=== PATIENT | male | born 1975 | race Hispanic/Latino ===

== ENCOUNTER 2017-12-30 20:26 | Emergency (ER) | payer OTHER ==
[2017-12-30] MEDS ORDERED: TETANUS/DIPHTHERIA TOXOID [ADULT] 0.5 ML VIAL IM ONE (20:36)
== END 2017-12-30 22:49 | disposition home or self-care (01) ==
LOC: EDH 20:26
DX: S61.212A Laceration without foreign body of right middle finger without damage to nail, initial encounter (principal); S61.214A Laceration without foreign body of right ring finger without damage to nail, initial encounter; W26.0XXA Contact with knife, initial encounter; Y93.89 Activity, other specified; Y92.098 Other place in other non-institutional residence as the place of occurrence of the external cause; Y99.8 Other external cause status
CPT/HCPCS: 90471; 90714

== ENCOUNTER 2021-04-26 17:42 | Inpatient (IN) | payer SELFPAY ==
[~2021-04-26] VITALS: Ht 167.6 cm; Wt 61.7 kg
[2021-04-26 18:44] LABS: CREATININE 0.8 mg/dL (0.5-1.5); POTASSIUM 3.6 mmol/L (3.5-5.1)
[2021-04-26 18:48] LABS: BASOPHILS % (AUTO) 0.3 % (0.0-5.0); EOSINOPHILS % (AUTO) 0.1 % (0.0-8.0); HEMATOCRIT 43.2 % (42-54); LYMPHOCYTES % (AUTO) 11.9 % (21.0-51.0); MEAN CORPUSCULAR HEMOGLOBIN 34.6 pg (27.0-33.0); MEAN CORPUSCULAR HGB CONC 34.5 g/dL (32.0-36.0); MEAN CORPUSCULAR VOLUME 100.2 fL (79-99); MONOCYTES % (AUTO) 7.7 % (3.0-13.0); NEUTROPHILS % (AUTO) 79.5 % (40.0-77.0); PLATELET COUNT (AUTO) 308 K/uL (130-400); RED BLOOD CELL COUNT(AUTO) 4.31 MIL/uL (4.50-6.20); RED CELL DISTRIBUTION WIDTH 13.5 % (11.0-15.5); WHITE BLOOD COUNT (AUTO) 8.7 K/uL (4.8-10.8)
[2021-04-26 18:49] LABS: ALBUMIN 4.2 g/dL (3.5-5.0); BILIRUBIN,TOTAL 0.4 mg/dL (0.2-1.0); TOTAL PROTEIN, SERUM 8.3 g/dL (6.0-8.3)
[2021-04-26] MEDS ORDERED: 0.9%NACL 1000ML 1,000 ML IV ONE (19:00)
[2021-04-26 19:09] LABS: INR 0.97 (0.85-1.15); PARTIAL THROMBOPLASTIN TIME 26.1 SEC (26.3-35.5); PROTHROMBIN TIME 10.6 SEC (9.6-11.6)
[2021-04-26] MEDS ORDERED: PANTOPRAZOLE 40 MG/VIAL IVP SCH (21:00)
[2021-04-26] MEDS: LORAZEPAM 1 MG TABLET PO PRN (21:07)
[2021-04-26] MEDS: 0.9%NACL 1000ML 1,000 ML IV SCH (21:07)
[2021-04-26] MEDS ORDERED: ZOLPIDEM TARTRATE 5 MG TAB PO PRN (22:00)
[2021-04-26] MEDS: LACTATED RINGERS 1000ML 1,000 ML IV SCH (22:43)
[2021-04-27 02:00] LABS: APPEARANCE,URINE Turbid (CLEAR); BILIRUBIN,URINE Negative (NEGATIVE); COLOR,URINE Yellow (YELLOW); GLUCOSE, URINE (UA) Negative (NEGATIVE); KETONES,URINE Trace mg/dL (NEGATIVE); LEUKOCYTE ESTERASE ,URINE Negative (NEGATIVE); NITRATE,URINE Negative (NEGATIVE); OCCULT BLOOD,URINE Negative (NEGATIVE); PH,URINE 5.5 (5.0-8.0); PROTEIN,URINE Negative (NEGATIVE)
[2021-04-27 02:02] LABS: AMORPHOUS SEDIMENT,UR Many /LPF (None Seen); BACTERIA,URINE None Seen /HPF (None Seen); RBC,URINE None Seen /HPF (0-1); SQUAMOUS EPITHELIAL CELL,UR Rare /HPF (0-2); WBC,URINE None Seen /HPF (0-1)
[2021-04-27] MEDS: 0.9%NACL 1000ML 1,000 ML IV SCH (03:40)
[2021-04-27 06:32] LABS: BASOPHILS % (AUTO) 0.6 % (0.0-5.0); EOSINOPHILS % (AUTO) 0.4 % (0.0-8.0); LYMPHOCYTES % (AUTO) 21.5 % (21.0-51.0); MEAN CORPUSCULAR HEMOGLOBIN 34.8 pg (27.0-33.0); MEAN CORPUSCULAR HGB CONC 33.9 g/dL (32.0-36.0); MEAN CORPUSCULAR VOLUME 102.4 fL (79-99); MONOCYTES % (AUTO) 11.1 % (3.0-13.0); NEUTROPHILS % (AUTO) 66.1 % (40.0-77.0); PLATELET COUNT (AUTO) 223 K/uL (130-400); RED BLOOD CELL COUNT(AUTO) 3.71 MIL/uL (4.50-6.20); RED CELL DISTRIBUTION WIDTH 13.5 % (11.0-15.5); WHITE BLOOD COUNT (AUTO) 6.9 K/uL (4.8-10.8)
[2021-04-27 07:00] LABS: CREATININE 0.8 mg/dL (0.5-1.5); MAGNESIUM 1.6 mg/dL (1.80-2.40); PHOSPHORUS 3.2 mg/dL (2.5-4.9); POTASSIUM 3.4 mmol/L (3.5-5.1)
[2021-04-27] MEDS: LACTATED RINGERS 1000ML 1,000 ML IV SCH ×2 (09:07→18:03)
[2021-04-27] MEDS: FAMOTIDINE 20MG VIAL IV SCH ×2 (09:08→22:04)
[2021-04-27] MEDS ORDERED: PEG 3350/NA SULF,BICARB,CL/KCL 4000 ML SOLN PO SCH (17:00)
[2021-04-27 23:30] VITALS: BP 144/95
[2021-04-28] VITALS (20 sets, daily range): BP systolic 100–143; BP diastolic 66–98
[2021-04-28 00:25] LABS: HEMATOCRIT 44.9 % (42-54)
[2021-04-28] MEDS: LORAZEPAM 1 MG TABLET PO PRN (00:42)
[2021-04-28] MEDS: LACTATED RINGERS 1000ML 1,000 ML IV SCH ×2 (03:04→14:14)
[2021-04-28 06:44] LABS: HEMATOCRIT 38.6 % (42-54)
[2021-04-28] MEDS ORDERED: MAGNESIUM 2GM PREMIX 50ML 50 ML IV SCH (09:30)
[2021-04-28] MEDS ORDERED: KCL 20 MEQ ERTAB PO SCH (09:30)
[2021-04-28] MEDS: FAMOTIDINE 20MG VIAL IV SCH (09:43)
[2021-04-28] MEDS ORDERED: PROPOFOL 10 MG/ML 20ML VIAL IV ONE (12:18)
[2021-04-28 18:00] LABS: HEMATOCRIT 41.7 % (42-54)
== END 2021-04-28 19:35 | disposition home or self-care (01) | DRG 378 ==
LOC: EDH 17:42 → OBSVTOIN 17:43 → EDHIP 17:43 → 3AH 04-27 23:08
PROVIDERS: ADMIT Internal Medicine; ATTEND Internal Medicine
PROC: 0DJD8ZZ Inspection of Lower Intestinal Tract, Via Natural or Artificial Opening Endoscopic (ICD-10-PCS; principal; 2021-04-28)
DX: K92.1 Melena (principal); D62 Acute posthemorrhagic anemia; K59.00 Constipation, unspecified; F41.9 Anxiety disorder, unspecified; Z20.822 Contact with and (suspected) exposure to COVID-19; K64.8 Other hemorrhoids; R74.01 Elevation of levels of liver transaminase levels
CPT/HCPCS: 36415; 45378; 74176; 80048; 80053; 81001; 82270; 83735; 84100; 85014; 85018; 85025; 85610; 85730; 86140; 86850; 86900; 86901; 87635; 93005; 96374; A4606; C9113; G0378; J2704; J3475; J3490; J7030; J7120

== ENCOUNTER 2021-12-30 00:31 | Emergency (ER) | payer OTHER ==
[~2021-12-30] VITALS: Ht 167.6 cm; Wt 63.5 kg
[2021-12-30 01:03] LABS: BASOPHILS % (AUTO) 0.9 % (0.0-5.0); EOSINOPHILS % (AUTO) 1.1 % (0.0-8.0); HEMATOCRIT 43.2 % (42-54); LYMPHOCYTES % (AUTO) 30.9 % (21.0-51.0); MEAN CORPUSCULAR HEMOGLOBIN 32.1 pg (27.0-33.0); MEAN CORPUSCULAR HGB CONC 33.8 g/dL (32.0-36.0); MEAN CORPUSCULAR VOLUME 94.9 fL (79-99); MONOCYTES % (AUTO) 6.6 % (3.0-13.0); NEUTROPHILS % (AUTO) 60.3 % (40.0-77.0); PLATELET COUNT (AUTO) 318 K/uL (130-400); RED BLOOD CELL COUNT(AUTO) 4.55 MIL/uL (4.50-6.20); RED CELL DISTRIBUTION WIDTH 12.4 % (11.0-15.5); WHITE BLOOD COUNT (AUTO) 5.6 K/uL (4.8-10.8)
[2021-12-30 01:08] LABS: APPEARANCE,URINE Clear (CLEAR); BILIRUBIN,URINE Negative (NEGATIVE); COLOR,URINE Yellow (YELLOW); GLUCOSE, URINE (UA) Negative (NEGATIVE); KETONES,URINE Negative (NEGATIVE); LEUKOCYTE ESTERASE ,URINE Trace (NEGATIVE); NITRATE,URINE Negative (NEGATIVE); OCCULT BLOOD,URINE Negative (NEGATIVE); PROTEIN,URINE Negative (NEGATIVE); UROBILINOGEN,URINE 0.2 mg/dL (0.2-1.0)
[2021-12-30 01:13] LABS: CARBON DIOXIDE 27 mmol/L (21-32); CHLORIDE 103 mmol/L (101-111); CREATININE 0.9 mg/dL (0.5-1.5); GLOMERULAR FILTR. RATE CALC 97 mL/min (>60); GLUCOSE,RANDOM 99 mg/dL (70-105); POTASSIUM 3.5 mmol/L (3.5-5.1); SODIUM SERUM 140 mmol/L (136-145); UREA NITROGEN, BLOOD 14 mg/dL (7-18)
[2021-12-30 01:14] LABS: BACTERIA,URINE None Seen /HPF (None Seen); RBC,URINE None Seen /HPF (0-1); WBC,URINE None Seen /HPF (0-1)
[2021-12-30 01:18] LABS: ALANINE AMINOTRANSFERASE 26 U/L (12-78); ALBUMIN 3.9 g/dL (3.5-5.0); ASPARTATE AMINOTRANSFERASE 28 U/L (10-37); BILIRUBIN,TOTAL 0.5 mg/dL (0.2-1.0); TOTAL PROTEIN, SERUM 7.7 g/dL (6.0-8.3)
[2021-12-30 01:20] LABS: AMPHET/METH SCREEN,URINE NEGATIVE (NEGATIVE); BARBITURATE SCREEN, URINE NEGATIVE (NEGATIVE); BENZODIAZEPINES SCREEN,URINE NEGATIVE (NEGATIVE); CANNABINOID SCREEN,URINE NEGATIVE (NEGATIVE); COCAINE SCREEN,URINE NEGATIVE (NEGATIVE); OPIATE SCREEN,URINE NEGATIVE (NEGATIVE); PHENCYCLIDINE SCREEN,URINE NEGATIVE (NEGATIVE)
[2021-12-30 01:23] LABS: ACETAMINOPHEN < 1 mcg/mL (10-29); ALCOHOL, BLOOD 325 mg/dL (0-10); SALICYLATE < 2.8 mg/dL (2.8-20.0)
[2021-12-30 09:31] VITALS: BP 126/81
== END 2021-12-30 15:23 | disposition home or self-care (01) ==
LOC: EDH 00:31
DX: F34.9 Persistent mood [affective] disorder, unspecified (principal); F10.10 Alcohol abuse, uncomplicated; Z20.822 Contact with and (suspected) exposure to COVID-19; Z90.89 Acquired absence of other organs; Y90.4 Blood alcohol level of 80-99 mg/100 ml
CPT/HCPCS: 36415; 80053; 80305; 81001; 85025; 87635; 99283; C9803; G0481

== ENCOUNTER 2022-12-07 02:43 | Inpatient (IN) | payer OTHER ==
[~2022-12-07] VITALS: Ht 167.6 cm; Wt 64.4 kg
[2022-12-07 03:43] LABS: CREATININE 1.4 mg/dL (0.5-1.5); POTASSIUM 3.7 mmol/L (3.5-5.1)
[2022-12-07 03:44] LABS: ALBUMIN 4.6 g/dL (3.5-5.0); TOTAL PROTEIN, SERUM 8.5 g/dL (6.0-8.3)
[2022-12-07 03:55] LABS: BASOPHILS % (AUTO) 0.4 % (0.0-5.0); EOSINOPHILS % (AUTO) 0.1 % (0.0-8.0); HEMATOCRIT 41.3 % (42-54); MEAN CORPUSCULAR HEMOGLOBIN 28.3 pg (27.0-33.0); MEAN CORPUSCULAR VOLUME 88.6 fL (79-99); MONOCYTES % (AUTO) 4.4 % (3.0-13.0); NEUTROPHILS % (AUTO) 88.5 % (40.0-77.0); PLATELET COUNT (AUTO) 468 K/uL (130-400); RED BLOOD CELL COUNT(AUTO) 4.66 MIL/uL (4.50-6.20); RED CELL DISTRIBUTION WIDTH 18.6 % (11.0-15.5); WHITE BLOOD COUNT (AUTO) 18.5 K/uL (4.8-10.8)
[2022-12-07] MEDS ORDERED: 0.9%NACL 1000ML 1,000 ML IV ONE ×2 (04:00)
[2022-12-07] MEDS ORDERED: ONDANSETRON 4MG INJ IVP ONE (04:00)
[2022-12-07 04:52] LABS: APPEARANCE,URINE CLEAR (CLEAR); BILIRUBIN,URINE NEGATIVE (NEGATIVE); COLOR,URINE LIGHT-YELLOW (YELLOW); GLUCOSE, URINE (UA) NEGATIVE (NEGATIVE); KETONES,URINE 100 mg/dL (NEGATIVE); LEUKOCYTE ESTERASE ,URINE NEGATIVE Leu/uL (NEGATIVE); NITRATE,URINE NEGATIVE (NEGATIVE); OCCULT BLOOD,URINE NEGATIVE (NEGATIVE); PH,URINE 5.5 (5.0-8.0); PROTEIN,URINE 20 mg/dL (NEGATIVE); UROBILINOGEN,URINE 0.2 mg/dL (0.2-1.0)
[2022-12-07 05:01] LABS: AMPHET/METH SCREEN,URINE NEGATIVE (NEGATIVE); BARBITURATE SCREEN, URINE NEGATIVE (NEGATIVE); BENZODIAZEPINES SCREEN,URINE NEGATIVE (NEGATIVE); CANNABINOID SCREEN,URINE NEGATIVE (NEGATIVE); COCAINE SCREEN,URINE NEGATIVE (NEGATIVE); OPIATE SCREEN,URINE NEGATIVE (NEGATIVE); PHENCYCLIDINE SCREEN,URINE NEGATIVE (NEGATIVE)
[2022-12-07 05:04] LABS: MUCUS,URINE RARE LPF (None Seen); RBC,URINE 0-1 /HPF (0-1); WBC,URINE 0-1 /HPF (0-1)
[2022-12-07] MEDS ORDERED: CHLORDIAZEPOXIDE HCL 25 MG CAP PO PRN ×2 (06:00→07:30)
[2022-12-07] MEDS ORDERED: LORAZEPAM 2 MG/ML 1 ML VIAL IVP ONE (06:00)
[2022-12-07] MEDS ORDERED: PHARMACY COMMUNICATION MISC PRN ×2 (06:00→07:30)
[2022-12-07] MEDS ORDERED: LORAZEPAM 2 MG/ML 1 ML VIAL IVP PRN ×3 (06:00→07:30)
[2022-12-07] MEDS ORDERED: M.V.I. IV [ADULT] 10 ML, FOLIC ACID 1 MG, THIAMINE HCL 100 MG in 0.9%NACL 1000ML 1,000 ML IV SCH (06:29)
[2022-12-07] MEDS: ZOSYN 3.375GM +NS 50ML IVPB SCH ×3 (07:00→20:09)
[2022-12-07] MEDS ORDERED: 0.9%NACL 50ML IV SCH (07:00)
[2022-12-07 07:33] LABS: INR 0.88 (0.85-1.15); PROTHROMBIN TIME 9.5 SEC (9.6-11.6)
[2022-12-07] MEDS: CHLORDIAZEPOXIDE HCL 25 MG CAP PO PRN ×3 (08:39→16:49)
[2022-12-07] MEDS: PANTOPRAZOLE 40 MG/VIAL IVP SCH ×2 (09:19→20:10)
[2022-12-07] MEDS: FOLIC ACID 1 MG, THIAMINE HCL 100 MG in 0.9%NACL 1000ML 1,000 ML IV SCH (09:19)
[2022-12-07] MEDS: ENOXAPARIN SODIUM 30 MG/0.3 ML SQ SCH (09:20)
[2022-12-07] MEDS ORDERED: IOHEXOL 350 MG/ML 100ML INFUS..BTL IV ONE (09:28)
[2022-12-07] MEDS ORDERED: POTASSIUM CHLORIDE 10MEQ/100ML 100 ML IV PRN (14:00)
[2022-12-07] MEDS ORDERED: POTASSIUM CHLORIDE 10% ELIXIR 20 MEQ/15 ML UDCUP PO PRN (14:00)
[2022-12-07] MEDS ORDERED: MAGNESIUM 2GM PREMIX 50ML 50 ML IV SCH (14:00)
[2022-12-07] MEDS ORDERED: ONDANSETRON 4MG INJ ONE (16:43)
[2022-12-07] MEDS ORDERED: ONDANSETRON 4MG INJ IVP PRN (17:00)
[2022-12-07] MEDS: KCL 20 MEQ ERTAB PO PRN (17:13)
[2022-12-07 17:25] VITALS: BP 143/94
[2022-12-07 19:43] VITALS: BP 144/90
[2022-12-07 23:37] VITALS: BP 141/98
[2022-12-08 04:00] VITALS: BP 145/91
[2022-12-08 04:02] LABS: ALBUMIN 3.1 g/dL (3.5-5.0); BILIRUBIN,DIRECT 0.2 mg/dL (0.0-0.3); TOTAL PROTEIN, SERUM 6.3 g/dL (6.0-8.3)
[2022-12-08] MEDS: ZOSYN 3.375GM +NS 50ML IVPB SCH ×3 (05:47→21:08)
[2022-12-08 07:00] VITALS: BP 136/88
[2022-12-08 07:10] LABS: BASOPHILS % (AUTO) 0.9 % (0.0-5.0); EOSINOPHILS % (AUTO) 0.1 % (0.0-8.0); HEMATOCRIT 31.7 % (42-54); LYMPHOCYTES % (AUTO) 20.2 % (21.0-51.0); MEAN CORPUSCULAR HEMOGLOBIN 28.5 pg (27.0-33.0); MEAN CORPUSCULAR HGB CONC 31.5 g/dL (32.0-36.0); MEAN CORPUSCULAR VOLUME 90.3 fL (79-99); MONOCYTES % (AUTO) 10.6 % (3.0-13.0); NEUTROPHILS % (AUTO) 67.9 % (40.0-77.0); PLATELET COUNT (AUTO) 262 K/uL (130-400); RED BLOOD CELL COUNT(AUTO) 3.51 MIL/uL (4.50-6.20); RED CELL DISTRIBUTION WIDTH 17.9 % (11.0-15.5)
[2022-12-08 07:18] LABS: POTASSIUM 3.1 mmol/L (3.5-5.1)
[2022-12-08] MEDS: ENOXAPARIN SODIUM 30 MG/0.3 ML SQ SCH (10:18)
[2022-12-08] MEDS: PANTOPRAZOLE 40 MG/VIAL IVP SCH ×2 (10:18→21:08)
[2022-12-08 11:00] VITALS: BP 135/85
[2022-12-08] MEDS: FOLIC ACID 1 MG, THIAMINE HCL 100 MG in 0.9%NACL 1000ML 1,000 ML IV SCH (11:08)
[2022-12-08 16:00] VITALS: BP 132/91
[2022-12-08 19:30] VITALS: BP 128/86
[2022-12-08] MEDS: TRIAMCINOLONE ACETONIDE 0.1% CREAM 15GM TP SCH (21:48)
[2022-12-09 00:22] VITALS: BP 150/89
[2022-12-09 03:53] LABS: BASOPHILS % (AUTO) 0.6 % (0.0-5.0); EOSINOPHILS % (AUTO) 0.8 % (0.0-8.0); HEMATOCRIT 31.5 % (42-54); LYMPHOCYTES % (AUTO) 25.8 % (21.0-51.0); MEAN CORPUSCULAR HEMOGLOBIN 28.4 pg (27.0-33.0); MEAN CORPUSCULAR HGB CONC 32.1 g/dL (32.0-36.0); MEAN CORPUSCULAR VOLUME 88.5 fL (79-99); MONOCYTES % (AUTO) 9.8 % (3.0-13.0); NEUTROPHILS % (AUTO) 62.8 % (40.0-77.0); PLATELET COUNT (AUTO) 229 K/uL (130-400); RED BLOOD CELL COUNT(AUTO) 3.56 MIL/uL (4.50-6.20); RED CELL DISTRIBUTION WIDTH 16.9 % (11.0-15.5); WHITE BLOOD COUNT (AUTO) 5.1 K/uL (4.8-10.8)
[2022-12-09 04:05] LABS: ALBUMIN 3.2 g/dL (3.5-5.0); BILIRUBIN,DIRECT 0.2 mg/dL (0.0-0.3); CREATININE 0.9 mg/dL (0.5-1.5); POTASSIUM 3.3 mmol/L (3.5-5.1); TOTAL PROTEIN, SERUM 6.4 g/dL (6.0-8.3)
[2022-12-09 04:30] VITALS: BP 139/91
[2022-12-09] MEDS: ZOSYN 3.375GM +NS 50ML IVPB SCH (05:00)
[2022-12-09] MEDS: KCL 20 MEQ ERTAB PO PRN ×3 (05:01→11:28)
[2022-12-09 07:15] VITALS: BP 128/80
[2022-12-09] MEDS: PANTOPRAZOLE 40 MG/VIAL IVP SCH (08:43)
[2022-12-09] MEDS: TRIAMCINOLONE ACETONIDE 0.1% CREAM 15GM TP SCH (08:45)
[2022-12-09] MEDS: ENOXAPARIN SODIUM 30 MG/0.3 ML SQ SCH (08:45)
[2022-12-09] MEDS ORDERED: TRIA15CR45 TP (09:32)
[2022-12-09] MEDS ORDERED: ONDA-104 PO (09:33)
[2022-12-09 11:15] VITALS: BP 136/90
[2022-12-09] MEDS ORDERED: KCL 20 MEQ ERTAB PO SCH (15:00)
== END 2022-12-09 14:30 | disposition home or self-care (01) | DRG 897 ==
LOC: EDH 02:43 → EDHIP 02:44 → 2AH 15:50
PROVIDERS: ADMIT Hospitalist; ATTEND Hospitalist
DX: F10.139 Alcohol abuse with withdrawal, unspecified (principal); R65.10 Systemic inflammatory response syndrome (SIRS) of non-infectious origin without acute organ dysfunction; E87.6 Hypokalemia; D72.829 Elevated white blood cell count, unspecified; E83.42 Hypomagnesemia
CPT/HCPCS: 36415; 71046; 71270; 76705; 80048; 80053; 80076; 80305; 81001; 82550; 83605; 83690; 83735; 84145; 85025; 85378; 85610; 93005; 99291; C9113; G0378; J1650; J2060; J2405; J2543; J3411; J3475; J3490; J7030; Q9967

== ENCOUNTER 2023-02-02 20:18 | Inpatient (IN) | payer OTHER ==
[~2023-02-02] VITALS: Ht 167.6 cm; Wt 64.7 kg
[~2023-02-02 20:18] MED LIST: ONDA-104 PO; TRIA15CR45 TP
[2023-02-02] MEDS ORDERED: THIAMINE HCL 100 MG/ML 2ML VIAL ONE (22:57)
[2023-02-02] MEDS ORDERED: FOLIC ACID 5 MG/ML VIAL ONE (22:58)
[2023-02-02] MEDS: THIAMINE HCL 100 MG, FOLIC ACID 1 MG, M.V.I. IV [ADULT] 10 ML in 0.9%NACL 1000ML 1,000 ML IV SCH (22:59)
[2023-02-02] MEDS ORDERED: LORAZEPAM 2 MG/ML 1 ML VIAL IVP ONE (23:00)
[2023-02-02] MEDS ORDERED: LACTATED RINGERS 1000ML 1,000 ML IV ONE (23:00)
[2023-02-02 23:23] LABS: BASOPHILS % (AUTO) 0.4 % (0.0-5.0); EOSINOPHILS % (AUTO) 32.1 % (0.0-8.0); HEMATOCRIT 49.4 % (42-54); LYMPHOCYTES % (AUTO) 5.2 % (21.0-51.0); MEAN CORPUSCULAR HEMOGLOBIN 26.3 pg (27.0-33.0); MEAN CORPUSCULAR HGB CONC 28.9 g/dL (32.0-36.0); MEAN CORPUSCULAR VOLUME 90.8 fL (79-99); MONOCYTES % (AUTO) 5.7 % (3.0-13.0); NEUTROPHILS % (AUTO) 54.8 % (40.0-77.0); NUCLEATED RED BLOOD CELLS 0.1 % (0.0-0.19); PLATELET COUNT (AUTO) 586 K/uL (130-400); RED BLOOD CELL COUNT(AUTO) 5.44 MIL/uL (4.50-6.20); RED CELL DISTRIBUTION WIDTH 16.6 % (11.0-15.5)
[2023-02-02] MEDS ORDERED: PANTOPRAZOLE 40 MG/VIAL ONE (23:37)
[2023-02-02 23:38] LABS: WHITE BLOOD COUNT (AUTO) 37.2 K/uL (4.8-10.8)
[2023-02-02 23:39] LABS: ALANINE AMINOTRANSFERASE 44 U/L (12-78); ALBUMIN 4.4 g/dL (3.5-5.0); ASPARTATE AMINOTRANSFERASE 82 U/L (10-37); CREATININE 2.7 mg/dL (0.5-1.5); GLOMERULAR FILTR. RATE CALC 29 mL/min (>90); GLUCOSE,RANDOM 194 mg/dL (70-105); LIPASE 265 U/L (114-286); POTASSIUM 5.4 mmol/L (3.5-5.1); SALICYLATE 3.4 mg/dL (2.8-20.0); SODIUM SERUM 132 mmol/L (136-145); UREA NITROGEN, BLOOD 25 mg/dL (7-18)
[2023-02-02 23:42] LABS: ACETAMINOPHEN < 1 mcg/mL (10-29); CARBON DIOXIDE 9 mmol/L (21-32); CHLORIDE 85 mmol/L (101-111)
[2023-02-03] MEDS ORDERED: LACTATED RINGERS 1000ML 1,914 ML IV ONE
[2023-02-03] MEDS ORDERED: CEFTRIAXONE 2GM VIAL IVPB ONE
[2023-02-03] MEDS ORDERED: PANTOPRAZOLE 40 MG/VIAL IVP ONE
[2023-02-03 00:23] LABS: BAND NEUTROPHILS % (MANUAL) 1 % (0-2); BASOPHILS % (MANUAL) 1 % (0-2); EOSINOPHILS % (MANUAL) 1 % (1-6); LYMPHOCYTES % (MANUAL) 13 % (22-44); MONOCYTES % (MANUAL) 10 % (2-9); SEGMENTED NEUTROPHILS % 74 % (40-70)
[2023-02-03 00:24] LABS: MAN.DIFF COMMENT-IMPRESSION MANUAL DIFFERENTIAL; PLATELET MORPHOLOGY COMMENT INCREASED
[2023-02-03 01:19] LABS: APPEARANCE,URINE CLOUDY (CLEAR); BILIRUBIN,URINE NEGATIVE (NEGATIVE); COLOR,URINE LIGHT-YELLOW (YELLOW); GLUCOSE, URINE (UA) NEGATIVE (NEGATIVE); KETONES,URINE 40 mg/dL (NEGATIVE); LEUKOCYTE ESTERASE ,URINE NEGATIVE Leu/uL (NEGATIVE); NITRATE,URINE NEGATIVE (NEGATIVE); OCCULT BLOOD,URINE SMALL (NEGATIVE); PH,URINE 5.5 (5.0-8.0); PROTEIN,URINE 100 mg/dL (NEGATIVE); UROBILINOGEN,URINE 0.2 mg/dL (0.2-1.0)
[2023-02-03 01:24] LABS: AMPHET/METH SCREEN,URINE NEGATIVE (NEGATIVE); BARBITURATE SCREEN, URINE NEGATIVE (NEGATIVE); BENZODIAZEPINES SCREEN,URINE NEGATIVE (NEGATIVE); CANNABINOID SCREEN,URINE NEGATIVE (NEGATIVE); COCAINE SCREEN,URINE NEGATIVE (NEGATIVE); OPIATE SCREEN,URINE NEGATIVE (NEGATIVE); PHENCYCLIDINE SCREEN,URINE NEGATIVE (NEGATIVE)
[2023-02-03 01:29] LABS: MUCUS,URINE RARE LPF (None Seen); SQUAMOUS EPITHELIAL CELL,UR RARE /HPF (0-2)
[2023-02-03 01:56] LABS: ABG BASE EXCESS -8.3 mmol/L (-2.0-3.0); ABG HCO3 14.9 mmol/L (21.0-28.0); ABG OXYGEN SATURATION 96.6 % (95.0-99.0); ABG PCO2 26 mmHg (35-48)
[2023-02-03] MEDS: CHLORDIAZEPOXIDE HCL 25 MG CAP PO SCH ×3 (02:30→16:38)
[2023-02-03] MEDS ORDERED: ACETAMINOPHEN 325 MG TAB PO PRN ×2 (02:30)
[2023-02-03] MEDS ORDERED: MORPHINE 2 MG SYG IV PRN (02:30)
[2023-02-03] MEDS ORDERED: ONDANSETRON 4MG INJ IV PRN (02:30)
[2023-02-03] MEDS ORDERED: LORAZEPAM 2 MG/ML 1 ML VIAL IVP PRN (02:30)
[2023-02-03] MEDS ORDERED: NA ZIRCON CYCLOSIL(LOKELMA 10GM) PO ONE ×2 (02:30→07:30)
[2023-02-03] MEDS ORDERED: PHARMACY COMMUNICATION MISC PRN (02:30)
[2023-02-03] MEDS ORDERED: MORPHINE 4 MG SYG IV PRN (02:30)
[2023-02-03 06:48] LABS: CREATININE,URINE RANDOM 36 mg/dL (30-135); SODIUM,URINE RANDOM 94 mmol/l (40-220)
[2023-02-03 08:13] LABS: BASOPHILS % (AUTO) 0.1 % (0.0-5.0); EOSINOPHILS % (AUTO) 0.1 % (0.0-8.0); HEMATOCRIT 35.2 % (42-54); MEAN CORPUSCULAR HEMOGLOBIN 26.4 pg (27.0-33.0); MEAN CORPUSCULAR HGB CONC 31.8 g/dL (32.0-36.0); MONOCYTES % (AUTO) 8.2 % (3.0-13.0); NEUTROPHILS % (AUTO) 86.2 % (40.0-77.0); PLATELET COUNT (AUTO) 337 K/uL (130-400); RED BLOOD CELL COUNT(AUTO) 4.24 MIL/uL (4.50-6.20); RED CELL DISTRIBUTION WIDTH 16.4 % (11.0-15.5); WHITE BLOOD COUNT (AUTO) 16.9 K/uL (4.8-10.8)
[2023-02-03] MEDS: PANTOPRAZOLE 40 MG TAB DR PO SCH (08:17)
[2023-02-03] MEDS: THIAMINE HCL 100 MG, FOLIC ACID 1 MG, M.V.I. IV [ADULT] 10 ML in 0.9%NACL 1000ML 1,000 ML IV SCH (08:18)
[2023-02-03 08:32] LABS: CREATININE 1.7 mg/dL (0.5-1.5); PHOSPHORUS 1.8 mg/dL (2.5-4.9); POTASSIUM 4.1 mmol/L (3.5-5.1)
[2023-02-03 08:33] LABS: HEMOGLOBIN A1C 5.6 % (4.0-6.0)
[2023-02-03] MEDS: HEPARIN 5,000 UNIT VIAL SQ SCH ×3 (09:12→20:35)
[2023-02-03 15:00] VITALS: BP 161/103
[2023-02-03 20:00] VITALS: BP 154/88
[2023-02-04] VITALS: BP 154/88
[2023-02-04] MEDS: CHLORDIAZEPOXIDE HCL 25 MG CAP PO SCH ×3 (01:54→17:51)
[2023-02-04 04:00] VITALS: BP 144/80
[2023-02-04 06:21] LABS: BASOPHILS % (AUTO) 0.1 % (0.0-5.0); HEMATOCRIT 34.6 % (42-54); LYMPHOCYTES % (AUTO) 11.8 % (21.0-51.0); MEAN CORPUSCULAR HEMOGLOBIN 26.5 pg (27.0-33.0); MEAN CORPUSCULAR HGB CONC 31.5 g/dL (32.0-36.0); MONOCYTES % (AUTO) 6.9 % (3.0-13.0); NEUTROPHILS % (AUTO) 80.7 % (40.0-77.0); NUCLEATED RED BLOOD CELLS 0.3 % (0.0-0.19); PLATELET COUNT (AUTO) 273 K/uL (130-400); RED BLOOD CELL COUNT(AUTO) 4.12 MIL/uL (4.50-6.20); RED CELL DISTRIBUTION WIDTH 16.7 % (11.0-15.5); WHITE BLOOD COUNT (AUTO) 12.8 K/uL (4.8-10.8)
[2023-02-04 06:51] LABS: ALBUMIN 3.3 g/dL (3.5-5.0); THYROID STIMULATING HORMONE 0.84 uIU/mL (0.36-3.74); TOTAL PROTEIN, SERUM 6.7 g/dL (6.0-8.3); URIC ACID 8.6 mg/dL (2.6-7.2)
[2023-02-04 07:40] VITALS: BP 147/82
[2023-02-04] MEDS: Vitamin B Complex/Vit C/Folic Acid PO SCH (09:04)
[2023-02-04] MEDS: THIAMINE HCL 100 MG, FOLIC ACID 1 MG, M.V.I. IV [ADULT] 10 ML in 0.9%NACL 1000ML 1,000 ML IV SCH (09:04)
[2023-02-04] MEDS: PANTOPRAZOLE 40 MG TAB DR PO SCH (09:04)
[2023-02-04] MEDS: HEPARIN 5,000 UNIT VIAL SQ SCH (09:11)
[2023-02-04 09:39] LABS: APPEARANCE,URINE CLEAR (CLEAR); BILIRUBIN,URINE NEGATIVE (NEGATIVE); COLOR,URINE LIGHT-YELLOW (YELLOW); GLUCOSE, URINE (UA) NEGATIVE (NEGATIVE); KETONES,URINE 60 mg/dL (NEGATIVE); LEUKOCYTE ESTERASE ,URINE NEGATIVE Leu/uL (NEGATIVE); NITRATE,URINE NEGATIVE (NEGATIVE); OCCULT BLOOD,URINE NEGATIVE (NEGATIVE); PH,URINE 6.5 (5.0-8.0); PROTEIN,URINE NEGATIVE (NEGATIVE); UROBILINOGEN,URINE 0.2 mg/dL (0.2-1.0)
[2023-02-04 09:58] LABS: MUCUS,URINE RARE LPF (None Seen); RBC,URINE 0-1 /HPF (0-1)
[2023-02-04 11:20] VITALS: BP 143/108
[2023-02-04 13:53] LABS: ABG BASE EXCESS -0.5 mmol/L (-2.0-3.0); ABG HCO3 23.7 mmol/L (21.0-28.0); ABG OXYGEN SATURATION 96.5 % (95.0-99.0); ABG PCO2 37 mmHg (35-48)
[2023-02-04] MEDS ORDERED: 0.9%NACL 50ML IV SCH (14:00)
[2023-02-04 14:13] LABS: RETICULOCYTE % (AUTO) 0.71 % (0.42-2.23)
[2023-02-04] MEDS: ZOSYN 3.375GM +NS 50ML IVPB SCH ×2 (14:21→21:04)
[2023-02-04 14:30] LABS: INR 0.93 (0.85-1.15)
[2023-02-04 14:44] LABS: % IRON SATURATION 12.4 % (30-44)
[2023-02-04 15:00] LABS: CRP QUANTITATIVE 22.2 mg/L (0.00-9.0)
[2023-02-04 15:57] LABS: HEMATOCRIT 32.3 % (42-54)
[2023-02-04 16:36] VITALS: BP 146/102
[2023-02-04] MEDS ORDERED: POTASSIUM CHLORIDE 10% ELIXIR 20 MEQ/15 ML UDCUP PO PRN (19:30)
[2023-02-04] MEDS: KCL 20 MEQ ERTAB PO PRN ×2 (19:49→22:48)
[2023-02-05] VITALS: BP 140/99
[2023-02-05] MEDS: KCL 20 MEQ ERTAB PO PRN ×2 (00:37→02:42)
[2023-02-05] MEDS: CHLORDIAZEPOXIDE HCL 25 MG CAP PO SCH ×3 (02:41→18:19)
[2023-02-05 03:48] VITALS: BP 140/96
[2023-02-05 04:26] LABS: BASOPHILS % (AUTO) 0.2 % (0.0-5.0); EOSINOPHILS % (AUTO) 0.1 % (0.0-8.0); HEMATOCRIT 34.7 % (42-54); MEAN CORPUSCULAR HEMOGLOBIN 26.3 pg (27.0-33.0); MEAN CORPUSCULAR HGB CONC 30.8 g/dL (32.0-36.0); MEAN CORPUSCULAR VOLUME 85.3 fL (79-99); NEUTROPHILS % (AUTO) 81.5 % (40.0-77.0); NUCLEATED RED BLOOD CELLS 0.2 % (0.0-0.19); PLATELET COUNT (AUTO) 236 K/uL (130-400); RED BLOOD CELL COUNT(AUTO) 4.07 MIL/uL (4.50-6.20); RED CELL DISTRIBUTION WIDTH 16.5 % (11.0-15.5); WHITE BLOOD COUNT (AUTO) 9.2 K/uL (4.8-10.8)
[2023-02-05 04:50] LABS: ALBUMIN 3.2 g/dL (3.5-5.0); BILIRUBIN,DIRECT 0.1 mg/dL (0.0-0.3); CREATININE 1.1 mg/dL (0.5-1.5); POTASSIUM 4.1 mmol/L (3.5-5.1)
[2023-02-05] MEDS: ZOSYN 3.375GM +NS 50ML IVPB SCH ×3 (05:59→21:28)
[2023-02-05 07:56] VITALS: BP 142/93
[2023-02-05] MEDS: Vitamin B Complex/Vit C/Folic Acid PO SCH (08:29)
[2023-02-05] MEDS: PANTOPRAZOLE 40 MG TAB DR PO SCH (08:29)
[2023-02-05 11:27] VITALS: BP 145/95
[2023-02-05 16:25] VITALS: BP 137/100
[2023-02-05 20:00] VITALS: BP 137/93
[2023-02-06] VITALS: BP 143/77
[2023-02-06] MEDS: CHLORDIAZEPOXIDE HCL 25 MG CAP PO SCH ×2 (02:22→10:20)
[2023-02-06 04:00] VITALS: BP 134/86
[2023-02-06] MEDS: ZOSYN 3.375GM +NS 50ML IVPB SCH (05:27)
[2023-02-06 05:29] LABS: HEMATOCRIT 33.6 % (42-54); MEAN CORPUSCULAR HEMOGLOBIN 26.5 pg (27.0-33.0); MEAN CORPUSCULAR HGB CONC 30.7 g/dL (32.0-36.0); MEAN CORPUSCULAR VOLUME 86.4 fL (79-99); PLATELET COUNT (AUTO) 197 K/uL (130-400); RED BLOOD CELL COUNT(AUTO) 3.89 MIL/uL (4.50-6.20); RED CELL DISTRIBUTION WIDTH 16.6 % (11.0-15.5); WHITE BLOOD COUNT (AUTO) 6.3 K/uL (4.8-10.8)
[2023-02-06 05:40] LABS: MAGNESIUM 2.1 mg/dL (1.80-2.40); POTASSIUM 3.9 mmol/L (3.5-5.1); TOTAL PROTEIN, SERUM 6.9 g/dL (6.0-8.3)
[2023-02-06 06:24] LABS: LYMPHOCYTES % (MANUAL) 10 % (22-44); MAN.DIFF COMMENT-IMPRESSION MANUAL DIFFERENTIAL; MONOCYTES % (MANUAL) 8 % (2-9); REACTIVE LYMPHOCYTES 2 % (0-0); SEGMENTED NEUTROPHILS % 80 % (40-70)
[2023-02-06 08:00] VITALS: BP 156/114
[2023-02-06] MEDS: Vitamin B Complex/Vit C/Folic Acid PO SCH (10:20)
[2023-02-06] MEDS: PANTOPRAZOLE 40 MG TAB DR PO SCH (10:20)
[2023-02-06] MEDS ORDERED: PANT40TA PO (11:07)
[2023-02-06 12:00] VITALS: BP 135/97
== END 2023-02-06 13:35 | disposition home or self-care (01) | DRG 683 ==
LOC: EDH 20:18 → EDHIP 20:19 → 4CH 02-03 16:20
PROVIDERS: ADMIT Internal Medicine; ATTEND Internal Medicine
DX: N17.9 Acute kidney failure, unspecified (principal); D68.9 Coagulation defect, unspecified; F10.239 Alcohol dependence with withdrawal, unspecified; E87.20 Acidosis, unspecified; E87.1 Hypo-osmolality and hyponatremia; E11.65 Type 2 diabetes mellitus with hyperglycemia; D69.6 Thrombocytopenia, unspecified; E11.22 Type 2 diabetes mellitus with diabetic chronic kidney disease; E86.0 Dehydration; E87.5 Hyperkalemia; E87.6 Hypokalemia; F41.9 Anxiety disorder, unspecified; N18.9 Chronic kidney disease, unspecified
CPT/HCPCS: 36415; 36600; 70450; 71045; 76705; 76770; 80048; 80053; 80076; 80305; 81001; 82140; 82435; 82550; 82570; 82607; 82728; 82803; 82947; 83036; 83605; 83690; 83735; 83935; 84100; 84132; 84145; 84295; 84300; 84443; 84484; 84550; 85007; 85014; 85018; 85025; 85610; 86140; 87040; 93005; C9113; G0378; G0481; J0696; J1644; J2060; J2543; J3411; J3490; J7030; J7120

== ENCOUNTER 2024-07-30 07:21 | Emergency (ER) | payer SELFPAY ==
[~2024-07-30] VITALS: Ht 167.6 cm; Wt 65.8 kg
[2024-07-30 07:21] VITALS: BP 118/84; PULSE 107; RESP 20; TEMP 97
[~2024-07-30 07:21] MED LIST changes: +PANT40TA PO
--- NOTE | 2024-07-30 07:51 | ERN ---
ED Note History of Present Illness Stated Complaint: BILATERAL LEG PAIN Chief Complaint: Lower Extremity Pain/Injury Time Seen by MD: 07:26 Dictation: A 49-year-old male comes to the ED. Because he has had this leg pain over the last couple of weeks. Said he went to [facility]. Was diagnosed neuropathy given gabapentin. No falls trips traumas patient states he works from home he mainly lays in bed. Denies any previous medical problems or other issues. No chest pain or shortness of breath no abdominal pain no nausea no vomiting no fevers no chills it is still able to ambulate. Allergies: Coded Allergies: No Known Allergies (Unverified Allergy, Unknown, 04/26/21) Home Meds Active Scripts Pantoprazole Sodium (Protonix) 40 Mg Tablet.dr, 40 MG PO DAILY, #30 TAB 0 Refills Prov:LANEY WEBSTER 02/06/23 Ondansetron HCl (Ondansetron HCl) 4 Mg Tablet, 4 MG PO Q6HPRN PRN for NAUSEA/VOMITING, #20 TAB 0 Refills Prov:LANEY WEBSTER 12/09/22 Triamcinolone Acetonide (Kenalog/Aristocort) 3 Appl/Tube Cream.gm., 0 APPL TP BID, #1 TUB 0 Refills Apply to affected site twice a day Prov:LANEY WEBSTER 12/09/22 Past Medical History Past Medical History: Anxiety, Depression Surgical History: Appendectomy Family History: Negative Social History: ETOH, Lives with family Review of System Dictation Constitutional: Negative for fever,chills, and weight loss Eyes: Negative for injury, pain,redness, and discharge ENT: Negative for injury,pain or swelling Cardiovascular: Negative for chest pain, palpitations, and edema Respiratory: Negative for shortness of breath, cough, and wheezing, Abdomen/GI: Negative for abdominal pain, nausea, vomiting, diarrhea, and constipation Back: Negative for injury and pain : Negative for injury, bleeding and discharge MS/Extremity: Negative for injury and deformity Skin: Negative for rash, and discoloration Neuro: Negative for headache, weakness, numbness, tingling, and seizure Psych: Negative for suicide ideation, homicidal ideation, and hallucinations Initial Vital Sign VS Vital Signs Date Time Temp Pulse Resp B/P (MAP) Pulse Ox O2 Delivery O2 Flow Rate FiO2 1/7/25 07:21 97.0 107 20 118/84 99 Room Air 0 Physical Exam Dictation General: awake, alert, NAD Head/Face: Normocephalic, atraumatic Eyes: PERRL, EOMI, vision at baseline ENT: oral cavity clear, TMs clear, no signs of infection Neck: Trachea midline, supple, no nuchal rigidity Cardiovascular: RRR, normal S1/S2, No MRGs, no JVD Respiratory: CTAB, no respiratory distress, No rales or wheezes Abdomen: Soft, non-tender, non-distended, normal bowel sounds, no guarding or rebound. Skin: Warm, dry, normal turgor, no rash MS/Extremity: Pulses equal, no cyanosis, neurovascular intact, FROM Neuro: COAx4, GCS 15, strength 5/5, CN 2-12 intact, normal cerebellar exam, normal gait, Psych: Normal behavior, mood, and affect normal Physical exam very reassuring. Does have 5/5 strength range of motion sensation of the bilateral hips knees ankles. Does have good dorsal pedal posterior tibial and posterior popliteal pulse ED Course ED Course Orders Procedure Category Date Status Time Hydrocodone/Apap PHA 07/30/24 Transmitted 5/325 ([place] 5/325mg) 08:00 Vital Signs Date Time Temp Pulse Resp B/P (MAP) Pulse Ox O2 Delivery O2 Flow Rate FiO2 07/30/24 07:21 97.0 107 20 118/84 99 Room Air 0 Medical Decision Making MDM No signs of DVT acute arterial clot. No signs of fracture. I said we can give some pain medications. But I do not need to do there is no indication clinical need to do arterial Doppler DVT ultrasound. CT scan x-ray. Labs tests imaging. He is stable for outpatient management. He needs chronic pain management and I physical therapy they are in agreement and give one time pain medication here he has Flexeril and gabapentin DX & DISP Disposition: Discharge Departure Impression: Primary Impression: Leg pain Condition: Stable Referrals: SELF,REFERRAL (PCP) ANGELI ESPINOZA MD Jul 30, 2024 07:51
[2024-07-30] MEDS: HYDROcodone/APAP 5/325 1 TAB TABLET PO ONE (07:53)
== END 2024-07-30 08:18 | disposition home or self-care (01) ==
LOC: EDH 07:21
DX: M79.605 Pain in left leg (principal); M79.604 Pain in right leg; Z79.899 Other long term (current) drug therapy; Z90.49 Acquired absence of other specified parts of digestive tract
CPT/HCPCS: 99283

== ENCOUNTER 2024-10-10 00:01 | Inpatient (IN) | payer SELFPAY ==
[~2024-10-10] VITALS: Ht 170.2 cm; Wt 70.1 kg
[~2024-10-10 00:01] MED LIST changes: +TRAZ150T79 PO
--- NOTE | 2024-10-10 00:17 | ERN ---
ED Note History of Present Illness Stated Complaint: ALCOHOL WITHDRAWL Chief Complaint: Withdrawl Time Seen by MD: 00:17 Time Seen by Midlevel: 00:20 Dictation: Mr. Dunn is a 49-year-old male with history of alcoholism (daily drinker) a nd pancreatitis who presented to the emergency department this morning for evaluation of withdrawal symptoms. 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 He states last alcohol was around 10:00 a.m. but he was throwing out. He has diffuse abdominal pain, nausea, vomiting, dizziness, headache, anxiety, and tremors. He denies having fever, chills, c hest pain, palpitations, edema, hematemesis, melena, hematochezia, constipation, diarrhea, or dysuria Allergies: Coded Allergies: No Known Allergies (Unverified Allergy, Unknown, 04/26/21) Home Meds Active Scripts Pantoprazole Sodium (Protonix) 40 Mg Tablet.dr, 40 MG PO DAILY, #30 TAB 0 Refills Prov:LANEY WEBSTER 02/06/23 Ondansetron HCl (Ondansetron HCl) 4 Mg Tablet, 4 MG PO Q6HPRN PRN for NAUSEA/VOMITING, #20 TAB 0 Refills Prov:LANEY WEBSTER [facility] 12/09/22 Triamcinolone Acetonide (Kenalog/Aristocort) 3 Appl/Tube Cream.gm., 0 APPL TP BID, #1 TUB 0 Refills Apply to affected site twice a day Prov:LANEY WEBSTER [facility] 12/09/22 Reported Medications Trazodone HCl (Trazodone HCl) 150 Mg Tablet, 150 MG PO HS, TAB 08/03/24 Past Medical History Past Medical History: Other Additional Past Medical Hx: PACREATITIS Surgical History: Appendectomy Family History: Negative Social History: ETOH, Lives with family RN Note Reviewed/Agreed w/PFSH: Yes Review of System Dictation REVIEW OF SYSTEMS: CONSTITUTIONAL: Patient denies fevers. Reports chills, fatigue, general weakness EYES: Patient denies any visual symptoms. EARS, NOSE, AND THROAT: No difficulties with hearing. No symptoms of rhinitis or sore throat. CARDIOVASCULAR: Patient denies chest pains, palpitations, orthopnea and paroxysmal nocturnal dyspnea. RESPIRATORY: No dyspnea on exertion, no wheezing or cough. GI: No diarrhea, constipation, hematochezia or melena. Reports diffuse abdomin al pain with persistent nausea and vomiting : No urinary hesitancy or dribbling. No nocturia or urinary frequency. No abnormal urethral discharge. MUSCULOSKELETAL: No myalgias or arthralgias. NEUROLOGIC: No chronic headaches, no seizures. Patient denies numbness, tingling or weakness. Reports headache and dizziness PSYCHIATRIC: Patient denies problems with mood disturbance. Reports feeling anxious ENDOCRINE: No excessive urination or excessive thirst. DERMATOLOGIC: Patient denies any rashes or skin changes. Initial Vital Sign VS Vital Signs Date Time Temp Pulse Resp B/P (MAP) Pulse Ox O2 Delivery O2 Flow Rate FiO2 10/10/24 00:02 99.0 140 20 161/135 100 Room Air Physical Exam Dictation Vital signs: Reviewed. Temp 99.0 Constitutional: Moderate distress. Signs of ETOH withdrawal. Significant other at bedside Head/Face: Normocephalic, atraumatic. Eyes: Periorbital areas with no swelling, redness, or edema. Lids and lashes are normal. Conjunctival injection is absent. Sclera anicteric. Pupils equal, round, reactive to light. ENT: Pinnas intact and no signs of trauma or erythema. Ear canals clear and no discharge. TMs no erythema. No nasal discharge or bleeding noted. Oropharynx with no exudate, redness, swelling, masses, exudates, or evidence of obstruction. Uvula midline. Mucous membranes moist. Neck: Trachea midline, no masses palpated, and no cervical lymphadenopathy. No swelling. Supple, full range of motion. Chest/Axilla: No tenderness, no crepitus, no paradoxical movement, no retr actions. Cardiovascular: Regular rate, regular rhythm, no murmur, no gallops. Symmetric pulses. No peripheral edema. Tachycardic. Blood pressure 161/35. Respiratory: Respirations even and unlabored. Lung sounds clear; no wheezes, rales or rhonchi. Room air SpO2 100% Gastrointestinal: Abdomen distended with diffuse tenderness Bowel sounds are normal. No mass or organomegaly No voluntary or involuntary guarding. No Siddiqui's sign. Neurological: Normal speech, gross motor function intact, gross sensory f unction intact. No focal weakness/Paresthesia. Speech is clear. Tremors of pains. Musculoskeletal/Extremities: All extremities have full range of motion, no pain or tenderness on palpation. Symmetric pulses. Integumentary: Intact. Skin is normal color, warm and dry. Cap refill less than 2 seconds. Results (Laboratory/Radiology) Laboratory/Radiology Laboratory Tests Test 10/10/24 01:06 White Blood Count 25.8 K/uL (4.8-10.8) H Red Blood Count 4.42 MIL/uL (4.50-6.20) L Hemoglobin 10.4 g/dL (14.0-18.0) L Hematocrit 40.4 % (42-54) L Mean Corpuscular Volume 91.4 fL (79-99) Mean Corpuscular Hemoglobin 23.5 pg (27.0-33.0) L Mean Corpuscular Hemoglobin Concent 25.7 g/dL (32.0-36.0) L Red Cell Distribution Width 18.3 % (11.0-15.5) H Platelet Count 565 K/uL (130-400) H Mean Platelet Volume 10.7 fL (7.5-10.5) H Immature Granulocyte % (Auto) 0.7 % (0-1) Neutrophils (%) (Auto) 83.9 % (40.0-77.0) H Lymphocytes (%) (Auto) 4.5 % (21.0-51.0) L Monocytes (%) (Auto) 10.2 % (3.0-13.0) Eosinophils (%) (Auto) 0.0 % (0.0-8.0) Basophils (%) (Auto) 0.7 % (0.0-5.0) Neutrophils # (Auto) 21.7 K/uL (1.8-7.7) H Lymphocytes # (Auto) 1.2 K/uL (1.0-4.8) Monocytes # (Auto) 2.6 K/uL (0.1-1.0) H Eosinophils # (Auto) 0.00 K/uL (0.00-0.70) Basophils # (Auto) 0.19 K/uL (0.00-0.20) Absolute Immature Granulocyte (auto 0.18 K/uL (0-1) Nucleated Red Blood Cells 2.3 % (0.0-0.19) H White Cell Morphology Comment See comments Red Blood Cell Morphology See comments Sodium Level 129 mmol/L (136-145) L Potassium Level 5.0 mmol/L (3.5-5.1) Chloride Level 82 mmol/L (101-111) *L Carbon Dioxide Level 6 mmol/L (21-32) *L Blood Urea Nitrogen 33 mg/dL (7-18) H Creatinine 3.5 mg/dL (0.5-1.3) H Glomerular Filtration Rate Calc 21 mL/min (>90) Random Glucose 157 mg/dL (70-105) H Total Calcium 9.2 mg/dL (8.5-10.1) Total Bilirubin 0.8 mg/dL (0.2-1.0) Direct Bilirubin 0.2 mg/dL (0.0-0.3) Aspartate Amino Transf (AST/SGOT) 166 U/L (10-37) H Alanine Aminotransferase (ALT/SGPT) 66 U/L (12-78) Alkaline Phosphatase 97 U/L (50-136) Total Protein 9.3 g/dL (6.0-8.3) H Albumin 4.3 g/dL (3.5-5.0) Lipase 103 U/L (16-77) H Serum Alcohol 4 mg/dL (0-10) Labs Reviewed?: Yes ED Course ED Course Orders Procedure Category Date Status Time Alcohol, Blood LAB 10/10/24 Complete 00:15 Cbc With Differential LAB 10/10/24 Complete 00:15 Basic Metabolic Panel LAB 10/10/24 Complete 00:15 Hepatic Function Panel LAB 10/10/24 Complete 00:15 Urinalysis Profile LAB 10/10/24 Logged 00:15 Drug Screen Urine LAB 10/10/24 Logged 00:15 Thiamine Hcl (Vitamin PHA 10/10/24 Complete B-1) 00:30 Lorazepam 2 Mg PHA 10/10/24 Complete (Ativan) 00:30 M.V.I. Iv [Adult] PHA 10/10/24 Complete (M.V.I. Iv [Adult])... 01:00 Ondansetron 4mg Inj PHA 10/10/24 Complete (Zofran 4mg Inj) 01:00 Diazepam 5 Mg/Ml 2 Ml PHA 10/10/24 Complete Syg (Valium 5 Mg/M 01:00 Lipase LAB 10/10/24 Complete 00:15 Lactated Ringers PHA 10/10/24 Complete 1000ml (Lactated 02:00 Pantoprazole 40mg Inj PHA 10/10/24 Complete (Protonix 40mg Inj 02:00 Zosyn 3.375gm+Ns 50ml PHA 10/10/24 Complete (Zosyn 3.375gm+Ns 02:00 Lactic Acid LAB 10/10/24 Logged 01:43 Ct Abdomen/Pelvis W/O CT 10/10/24 Taken Contrast 01:45 Ketone Blood LAB 10/10/24 Logged Quantitative 02:22 Current Medications Medications (Trade) Dose Ordered Sig/Aleida Route PRN Reason Start Time Stop Time Status Last Admin Dose Admin Diazepam (VALium 5 MG/ML 2 ML SYG) 5 mg ONCE ONCE IVP 10/10/24 01:00 10/10/24 01:01 DC 10/10/24 01:13 Lactated Ringer's 1,000 ml @ 0 mls/hr ONCE ONCE IV 10/10/24 02:00 10/10/24 02:01 DC Lorazepam (AtiVAN) 1 mg ONCE ONCE IVP 10/10/24 00:30 10/10/24 00:31 DC Multivitamins/ Minerals 10 ml/ Folic Acid 1 mg/ Thiamine HCl 100 mg/Sodium Chloride 1,010 ml @ 0 mls/hr ONCE ONCE IV 10/10/24 01:00 10/10/24 01:01 DC 10/10/24 01:12 Ondansetron HCl (zoFRAN 4MG INJ) 4 mg ONCE ONCE IVP 10/10/24 01:00 10/10/24 01:01 DC 10/10/24 01:13 Pantoprazole Sodium (PROTonix 40MG INJ) 40 mg ONCE ONCE IVP 10/10/24 02:00 10/10/24 02:01 DC Piperacillin Sod/ Tazobactam Sod (Zosyn 3.375gm+NS 50ml) 3.375 gm ONCE ONCE IV 10/10/24 02:00 10/10/24 02:01 DC Thiamine HCl (Vitamin B-1) 100 mg ONCE ONCE IVP 10/10/24 00:30 10/10/24 00:31 DC Vital Signs Date Time Temp Pulse Resp B/P (MAP) Pulse Ox O2 Delivery O2 Flow Rate FiO2 10/10/24 00:02 99.0 140 20 161/135 100 Room Air Upon arrival to the emergency department noted tachycardia with signs of ETOH withdrawal. CIWA score 17; anxiety, tremor, diaphoresis, persistent nausea and vomiting. He received doses NS bolus 1000 mL, banana bag, Valium, Zofran, and Zosyn. Laboratory findings as noted below. WBCs 25.8, H/H 10.4/40.4, platelet 565, BUN/CR 33/3.5, Na/Cl 129/82, CO2 6, glucose 157, AST 166, total protein 9.6, and lipase 103. ETOH level 4. Findings were discussed with RHONDA Reid who accepts patient for admission to hospitalist service Medical Decision Making MDM MDM: Differential diagnosis: ETOH withdrawal, pancreatitis, GI bleed, dehydration Rationale: Tests considered and ordered secondary to shared decision making include: labs, ECG and radiology Previous outside records reviewed: Old ER visits. Risk of complication and/or morbidity or mortality of patient management: None Medications-Per medication reconciliation Need for hospitalization: Patient does meet criteria for hospitalization. Need for emergency major/minor surgery: No There are no social concerns with this patient. Prescription drug management Prescriptions will include symptomatic care Patient's prior external medical records from other ER visits were reviewed by me as indicated. Prior testing and results from previous visits were reviewed. Prior tests were taken into account with medical decision making and resource utilization, independent historian/historians were used to obtain complete medical history. I independently interpreted the test that were performed, results were reviewed by me and considered findings on radiology if ordered. Medical management and examination interpretation discussions were had by me with other qualified healthcare professionals as indicated for the patient's care. DX & DISP Disposition: Inpatient Departure Impression: Primary Impression: Pancreatitis, alcoholic, acute Additional Impressions: Leukocytosis, Dehydration, JEAN CLAUDE (acute kidney injury), Alcohol withdrawal, Nausea & vomiting, Metabolic acidosis Condition: Stable Assign Patient to: Dr. Jose Hernandez Referrals: SELF,REFERRAL (PCP) IFRAH ASHLEY NP Oct 10, 2024 00:17
[2024-10-10] MEDS: LORazepam 2 MG/ML 1 ML VIAL IVP ONE (01:11)
[2024-10-10] MEDS: M.V.I. IV [ADULT] 10 ML, FOLic ACID 5 MG/ML VIAL 1 MG, THIAMINE HCL 100 MG in 0.9%NACL ... IV ONE (01:12)
[2024-10-10] MEDS: THIAMINE HCL 100 MG/ML 2ML VIAL IVP ONE (01:12)
[2024-10-10] MEDS: diazePAM 5 MG/ML 2 ML SYG IVP ONE (01:13)
[2024-10-10] MEDS: ondanSETRON 4MG INJ IVP ONE (01:13)
[2024-10-10 01:34] LABS: BASOPHILS # (AUTO) 0.19 K/uL (0.00-0.20); BASOPHILS % (AUTO) 0.7 % (0.0-5.0); HEMATOCRIT 40.4 % (42-54); IMMATURE GRANULOCYTE ABSOLUTE 0.18 K/uL (0-1); LYMPHOCYTES # (AUTO) 1.2 K/uL (1.0-4.8); LYMPHOCYTES % (AUTO) 4.5 % (21.0-51.0); MEAN CORPUSCULAR HEMOGLOBIN 23.5 pg (27.0-33.0); MEAN CORPUSCULAR HGB CONC 25.7 g/dL (32.0-36.0); MEAN CORPUSCULAR VOLUME 91.4 fL (79-99); MONOCYTES # (AUTO) 2.6 K/uL (0.1-1.0); MONOCYTES % (AUTO) 10.2 % (3.0-13.0); NEUTROPHILS # (AUTO) 21.7 K/uL (1.8-7.7); NEUTROPHILS % (AUTO) 83.9 % (40.0-77.0); NUCLEATED RED BLOOD CELLS 2.3 % (0.0-0.19); PLATELET COUNT (AUTO) 565 K/uL (130-400); RED BLOOD CELL COUNT(AUTO) 4.42 MIL/uL (4.50-6.20); RED CELL DISTRIBUTION WIDTH 18.3 % (11.0-15.5); WHITE BLOOD COUNT (AUTO) 25.8 K/uL (4.8-10.8)
[2024-10-10 02:06] LABS: ALBUMIN 4.3 g/dL (3.5-5.0); BILIRUBIN,DIRECT 0.2 mg/dL (0.0-0.3); BILIRUBIN,TOTAL 0.8 mg/dL (0.2-1.0); CREATININE 3.5 mg/dL (0.5-1.3); TOTAL PROTEIN, SERUM 9.3 g/dL (6.0-8.3)
[2024-10-10] MEDS ORDERED: LORazepam 2 MG/ML 1 ML VIAL IVP PRN (03:30)
[2024-10-10] MEDS ORDERED: PHARMACY COMMUNICATION MISC PRN (03:30)
[2024-10-10 03:40] LABS: ABG BASE EXCESS -11.4 mmol/L (-2.0-3.0); ABG HCO3 12.2 mmol/L (21.0-28.0); ABG OXYGEN SATURATION 97.2 % (94.0-98.0); ABG PCO2 23 mmHg (35-48); ABG PH 7.336 (7.350-7.450); PO2, ARTERIAL BG 97.2 mmHg (83.0-108.0); VENT MODE, BG RA,21 (ROOM AIR)
[2024-10-10] MEDS: chlordiazePOXIDE HCL 25 MG CAP PO SCH (03:43)
[2024-10-10] MEDS: LACTATED RINGERS 1000ML 1,000 ML IV ONE (03:43)
[2024-10-10] MEDS: ZOSYN 3.375GM +NS 50ML IV ONE (03:43)
[2024-10-10] MEDS: PANTOPrazole 40 MG/VIAL IVP ONE (03:43)
[2024-10-10] MEDS: ondanSETRON 4MG INJ IV PRN (03:47)
--- NOTE | 2024-10-10 03:51 | HP ---
History of Present Illness History of Present Illness Mr. Dunn is a 49-year-old male that was seen and examined today on 10/10/2024. Patient is a good historian of personal health Patient states he came to the emergency department with a chief complaint of nausea, vomiting. Onset was 10/09/2024 at 10:00 a.m.. Location is to abdomen. Duration is on and off. Character is described as watery. Symptoms are aggravated with quitting alcohol use. There was no alleviating factors. Patient denies any associated chest pain or shortness and breath. Today in the emergency department WBCs 25.8, left shift neutrophils 83.9%, BUN 33, creatinine 3.5, no urinalysis has been collected and sent to lab, CT of abdomen and pelvis has been ordered and performed but results are not available at time of admission. Emergency room physician recommended that patient be admitted with a diagnosis of acute kidney injury. Past Medical History Patient History: Diabetes mellitus MOTHER ADDITIONAL PAST MEDICAL HISTORY: [Anxiety, GI bleed] SOCIAL HISTORY: [Negative for smoking. Patient currently is drinking 8 shots of whiskey every day that are 2 ounces each. Patient denies drug use. Patient lives with his [place]. Patient has good access to healthcare through his insurance. Patient is employed at [employer]. Patient denies difficulty paying his bills. Patient is typically independent of his ADLs.] SURGICAL HISTORY: [Appendectomy] Review of Systems General: No Fever, No Chills, No Night Sweats, No Fatigue, No Malaise, No Appetite, No Other HEENT: No Head Aches, No Visual Changes, No Eye Pain, No Ear Pain, No Dysphasia, No Sinus Congestion, No Post Nasal Drip, No Sore Throat, No Other Pulmonary: No Dyspnea, No Cough, No Pleuritic Chest Pain, No Other Cardiovascular: No: Chest Pain, Palpitations, Orthopnea, Paroxysmal Noc. Dyspnea, Edema, Lt Headedness, Other Gastrointestinal: Nausea, Vomiting; No: Abdominal Pain, Diarrhea, Constipation, Melena, Hematochezia, Other Genitourinary: No Dysuria, No Frequency, No Incontinence, No Hematuria, No Retention, No Other Musculoskeletal: No: other, neck pain, shoulder pain, arm pain, back pain, hand pain, leg pain, foot pain Skin: No Urticaria, No Rash, No Other Neurological: Weakness; No: Numbness, Incoordination, Change in speech, Confusion, Seizures, Other Allergies: Coded Allergies: No Known Allergies (Unverified Allergy, Unknown, 04/26/21) Scheduled Pantoprazole Sodium (Protonix), 40 MG PO DAILY Trazodone HCl (Trazodone HCl), 150 MG PO HS, (Reported) Triamcinolone Acetonide (Kenalog/Aristocort), 0 APPL TP BID Scheduled PRN Ondansetron HCl (Ondansetron HCl), 4 MG PO Q6HPRN PRN for NAUSEA/VOMITING Exam Vital Signs Vital Signs Date Time Temp Pulse Resp B/P (MAP) Pulse Ox O2 Delivery O2 Flow Rate FiO2 10/10/24 00:02 99.0 140 20 161/135 100 Room Air General Appearance: Alert, Oriented X3, Cooperative, mild distress HEENT: Atraumatic, EOMI Respiratory: Clear to auscultation, Normal air movement, NL respiratory effort Cardiovascular: Regular rate, Normal S1, Normal S2, Other (Tachycardia) Abdominal: Normal bowel sounds, Soft, No tenderness Extremities: No edema Skin: No significant lesion Neuro: Normal speech, Strength at 5/5 X4 ext, Sensation intact, Cranial nerves 3-12 NL Psych/Mental Status: Mental status NL, Mood NL, Thoughts/Content NL Assessment/Plan ASSESSMENT: [ Alcohol dependence, POA Electrolyte derangement, POA Acute kidney injury, POA Leukocytosis, POA ] PLAN: [ Admit patient to medical floor as inpatient status. Counseled patient on alcohol cessation. Librium 25 mg by mouth every 8 hours As needed Ativan for alcohol withdrawal 1 mg every 4 hours Use CIWA-AR assessment tool Document EtOH withdrawal score Assess the need for seizure and aspiration precautions Consult Nephrology for evaluation and recommendations. Acute kidney injury: Calculate FENA Check urine sodium, creatinine, osmolality Avoid nephrotoxic agents when possible Renally dose all medications when possible Monitor patient's labs. Weight patient daily. Monitor intake and output. Check blood culture, follow up with the results Check lactic acid, follow up with the results Check procalcitonin, follow up with the results Consider starting empiric antibiotic therapy if patient develops any fever, chills or focal signs of infection. Consider starting empiric antibiotic therapy and fluid resuscitation if lactic acid or procalcitonin are elevated. GI prophylaxis, Protonix DVT prophylaxis, heparin ADVANCED CARE PLANNING 1. Which of the following were discussed? Hospice Care - Yes Therapeutic options - Yes Advance Directives - Yes -patient states he does not have any advanced directives in place at this time, however his can make decisions for him if he becomes unable. Other discussions -wishes to remain a full code at this time 2. Discussed with who? Patient 3. Voluntary nature of this service was explained to the patient? Yes 4. Amount of time spent - __19 minutes 5. Reviewed by Physician? (if this service was performed by NPP) Yes This document was generated in part using voice recognition software, occasional wrong word or sound alike substitutions may have occurred due to the inherent limitations of voice recognition software. Read the chart carefully and recognize using context, where the substitutions have occurred. Although every effort was made to edit the content, credit director and typing errors may occur. ADDENDUM: ATTENDING PHYSICIAN ATTESTATION: I have seen and discussed this patient with the midlevel and I agree with their plan. See my addendum for updates to the medical plan MD JOEY Barnes JOE D [facility] Oct 10, 2024 03:51 ROD HO MD Oct 11, 2024 10:11
[2024-10-10] MEDS ORDERED: hydrALAZine 20MG/ML VIAL IV PRN (04:00)
[2024-10-10] MEDS ORDERED: acetaMINOPHEN 325 MG TAB PO PRN (04:00)
[2024-10-10] MEDS ORDERED: morPHINE 2 MG SYG IVP PRN (04:00)
[2024-10-10] MEDS: THIAMINE HCL 100 MG, FOLic ACID 5 MG/ML VIAL 1 MG, M.V.I. IV [ADULT] 10 ML in 0.9%NACL ... IV SCH (04:10)
--- NOTE | 2024-10-10 05:52 | NUR ---
ATTEMPT TO CALL REPORT, NURSE BUSY, NO ANSWER
--- NOTE | 2024-10-10 06:34 | NUR ---
REPORT GIVEN TO KAYLENE RUBALCAVA
[2024-10-10 06:45] VITALS: BP 139/78; PULSE 84; RESP 20; TEMP 98.7
--- NOTE | 2024-10-10 06:55 | NUR ---
PATIENT ARRIVED TO UNIT Patient brought to unit via bed. Transferred with assistance. Addendum: 10/10/24 at 1510 by ZOHRA MIRANDA RN RN Amended: Links added.
--- NOTE | 2024-10-10 06:55 | NUR ---
Patient with emesis bag in hand. Anxious. Addendum: 10/10/24 at 1510 by ZOHRA MIRANDA RN RN Amended: Links added.
[2024-10-10 08:00] VITALS: BP 135/89; PULSE 119; RESP 20; TEMP 98.7; O2SAT 98
[2024-10-10] MEDS ORDERED: 0.9%NACL 1000ML 1,000 ML IV SCH ×2 (08:30)
--- NOTE | 2024-10-10 08:31 | HMCIMG ---
Exam Type: CT ABDOMEN/PELVIS W/O CONTRAST Clinical Information: vomiting, abdominal distention, hx alcohol abuse, pancreatitis Comparison: None CT Dose Index (CTDI): 10.20 mGy Dose Length Product (DLP): 530.00 total mGy-cm PROTOCOL: Routine noncontrast helical scanning of the abdomen and pelvis was performed at 5mm collimation. Findings: No evidence of nephro or ureterolithiasis is found. No hydronephrosis or ureteral dilatation is seen. The lung bases are clear. There is distention of the distal esophagus consistent with gastroesophageal reflux and there is a small hiatal hernia. The spleen is unremarkable. It is not enlarged. The pancreas shows normal anatomy. It is not fatty replaced. It shows no lesions. The pancreatic duct is not dilated. The gallbladder is unremarkable. It shows no cholelithiasis. The gallbladder wall is normal in thickness. There is no pericholecystic fluid. The is no acute or chronic inflammation noted. The adrenal glands are unremarkable. There is no enlargement. No lesions are noted. The liver shows diffuse fatty infiltration. It shows no focal lesions. The liver is enlarged. The appendix is unremarkable. It shows no evidence of inflammation. No appendicolith is seen. The small bowel is unremarkable. There is no evidence of dilatation to suggest obstruction. No evidence of adynamic ileus is seen. There is no small bowel wall thickening to suggest enteritis. The colon is unremarkable. The urinary bladder is unremarkable. There is no wall thickening to suggest tumor or inflammation. There are no intraluminal calculi. There are no diverticula. There is no evidence of chronic bladder outlet obstruction. There is no evidence of urinary bladder distention to suggest urinary retention. The other pelvic structures are unremarkable. The bony and vascular structures are unremarkable for the patient's age. IMPRESSION: Hiatal hernia and esophageal reflux. Fatty liver. This study was performed using dose reduction techniques to include automated exposure control and/or adjustment of the mA and/or kV according to patient size.
[2024-10-10 09:05] LABS: % IRON SATURATION 28.8 % (30-44)
--- NOTE | 2024-10-10 09:09 | CONS ---
REFERRING PHYSICIAN: Jose Hernandez MD REASON FOR CONSULTATION: Renal failure. HISTORY OF PRESENT ILLNESS: A 49-year-old male with a history of known alcohol use. The patient presented to the hospital with significant nausea, vomiting. The patient states he is unable to hold any food for the past 2 to 3 days. The patient has a history of known alcohol abuse. In the emergency room, the patient was found to have significant renal dysfunction with an elevated BUN and creatinine. The patient also has a severe metabolic gap acidosis. The patient's urinalysis from previous admission was consistent with persistent ketones. The patient was started on IV fluids and the patient is being seen in consultation for all the above. During his previous admission, the patient's creatinine had been normal. PAST MEDICAL HISTORY: GI bleeding. PAST SURGICAL HISTORY: Appendectomy. SOCIAL HISTORY: He does have a history of alcohol use. He denies any drug abuse. FAMILY HISTORY: There is no renal disease in the family. ALLERGIES: There are no allergies. MEDICATIONS: All noted. REVIEW OF SYSTEMS: GENERAL: He is feeling weak and tired. HEENT: No change in vision. No change in hearing. CARDIOVASCULAR: There is no current chest pain or palpitations. PULMONARY: No shortness of breath. GASTROINTESTINAL: As described above. MUSCULOSKELETAL: Complains of weakness. NEUROLOGIC: No seizures or focal deficits. PSYCHIATRIC: No history of hallucinations or psychosis. ENDOCRINE: He denies any diabetes mellitus or thyroid disease. HEME: History of anemia. No history of malignancy. PHYSICAL EXAMINATION: VITAL SIGNS: Blood pressure 139/78, pulse in 80s. He is afebrile. GENERAL: He is a chronically ill, much older than appearing male, lying in bed on the medical floor. HEENT: Head is atraumatic. Pupils equal, roving to light. Oropharynx is without exudate. Nares clear. NECK: There is no JVP. There is no thyromegaly, no mass. CARDIOVASCULAR: Regular. There is no S3, S4 gallop. LUNGS: Coarse with equal thoracic movement. ABDOMEN: Soft, nondistended, and nontender. EXTREMITIES: Reveal no clubbing, no cyanosis. NEUROLOGICAL: He is awake. He is alert. He is oriented. SKIN: Reveals no rash or nodules. BACK: There is no CVA tenderness, no back deformities. LABORATORY DATA: Sodium 129, potassium is 5, chloride 82, bicarbonate 6, BUN 33, creatinine 3.5. Albumin is 4.3. White cell count is 25,000, hemoglobin 10, hematocrit 40. Urinalysis is pending. IMPRESSION: * Acute renal failure. * Metabolic gap acidosis. * History of the alcohol use. * Leukocytosis. PLAN: The patient with significant acute renal failure, most likely related to underlying intravascular volume depletion. The patient also with severe metabolic acidosis. We will discontinue the normal saline. The patient will be started on a bicarb drip at 125 mL per hour. We will obtain serum ketones for completeness. Blood cultures will also be drawn. The patient with significant anemia, we will check iron levels for completeness and we will follow the patient closely. All labs can repeat in the morning. There is no need for any form of renal replacement therapy. TID: [id number] RECEIPT: [id number]
--- NOTE | 2024-10-10 10:32 | HMCIMG ---
Exam Type: CHEST 1VW Clinical Information: weakness Comparison: None Findings: The lungs are clear of infiltrates. The heart is normal in size. The bony and soft tissue structures of the chest are unremarkable. Impression: Clear lungs.
[2024-10-10] MEDS: SODIUM BICARB 8.4% 50ML SYRING 150 MEQ in DEXTROSE 5%-WATER 1,000 ML IVP SCH (11:06)
[2024-10-10] MEDS: PANTOPrazole 40 MG TAB DR PO SCH (11:06)
[2024-10-10] MEDS: HEParin 5,000 UNIT VIAL SQ SCH (11:36)
[2024-10-10 11:53] VITALS: BP 133/90; PULSE 111; RESP 21; TEMP 98.5
--- NOTE | 2024-10-10 12:12 | NUR ---
DCP -- Home Patient states lives with Felipe Dunn, Spouse [phone] in a house with a tub. 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 States able to complete ADL's on his own. Denies medical devices. Denies home health services, home care provider or dialysis. PCP - None per patient Pharmacy - [address] Upon discharge, Felipe Dunn, Spouse [phone] and assist with care. Provided [facility] [employer] [facility] and [facility] information. Referred to Financial Counseling. Addendum: 10/10/24 at 1218 by LUIS ANGEL LEGER RN CM Amended: Links added.
[2024-10-10 13:43] LABS: CREATININE,URINE RANDOM 138.52 mg/dL (30-135)
[2024-10-10 13:48] LABS: AMPHET/METH SCREEN,URINE NEGATIVE (NEGATIVE); BARBITURATE SCREEN, URINE NEGATIVE (NEGATIVE); BENZODIAZEPINES SCREEN,URINE NEGATIVE (NEGATIVE); CANNABINOID SCREEN,URINE NEGATIVE (NEGATIVE); COCAINE SCREEN,URINE NEGATIVE (NEGATIVE); OPIATE SCREEN,URINE NEGATIVE (NEGATIVE); PHENCYCLIDINE SCREEN,URINE NEGATIVE (NEGATIVE)
[2024-10-10 14:03] LABS: APPEARANCE,URINE CLEAR (CLEAR); BILIRUBIN,URINE NEGATIVE (NEGATIVE); COLOR,URINE LIGHT-YELLOW (YELLOW); GLUCOSE, URINE (UA) NEGATIVE (NEGATIVE); KETONES,URINE 60 mg/dL (NEGATIVE); LEUKOCYTE ESTERASE ,URINE NEGATIVE Leu/uL (NEGATIVE); NITRATE,URINE NEGATIVE (NEGATIVE); PH,URINE 5.5 (5.0-8.0); PROTEIN,URINE 30 mg/dL (NEGATIVE); UROBILINOGEN,URINE 0.2 mg/dL (0.2-1.0)
[2024-10-10 14:07] LABS: ADD UA MICROSCOPIC YES
[2024-10-10 14:08] LABS: MUCUS,URINE RARE LPF (None Seen); OTHER CASTS, URINE 2 /LPF (None Seen); WBC,URINE 0-1 /HPF (0-1)
[2024-10-10] MEDS: PROCHLORPERAZINE 10MG/2ML INJ IV PRN (15:31)
[2024-10-10 16:30] VITALS: BP 131/80; PULSE 104; RESP 19; TEMP 98.8
[2024-10-10 19:24] VITALS: O2SAT 98
[2024-10-10 20:00] VITALS: BP 119/74; PULSE 103; RESP 20; TEMP 98.5
[2024-10-11] VITALS (7 sets, daily range): BP systolic 114–124; BP diastolic 74–85; PULSE 90–107; RESP 16–20; TEMP 98.1–98.8; O2SAT 97–98
--- NOTE | 2024-10-11 04:10 | NUR ---
PATIENT INQUIRING WHEN HE WILL BE ABLE TO EAT. EXPLAIN THAT HE CAN EAT ONCE HIS NAUSEA/VOMITING IS UNTIL CONTROL. ASKED HIM HOW HE FEELS AND HE SAID HE DOES NOT FEEL NAUSEA AT THIS TIME AND HE FEELS HUNGRY. PROVIDED HIM WITH A JELLO.
[2024-10-11 04:36] LABS: BASOPHILS # (AUTO) 0.02 K/uL (0.00-0.20); BASOPHILS % (AUTO) 0.2 % (0.0-5.0); HEMATOCRIT 26.6 % (42-54); IMMATURE GRANULOCYTE ABSOLUTE 0.05 K/uL (0-1); LYMPHOCYTES # (AUTO) 1.5 K/uL (1.0-4.8); LYMPHOCYTES % (AUTO) 14.1 % (21.0-51.0); MEAN CORPUSCULAR HGB CONC 30.1 g/dL (32.0-36.0); MEAN CORPUSCULAR VOLUME 79.9 fL (79-99); MONOCYTES # (AUTO) 0.8 K/uL (0.1-1.0); MONOCYTES % (AUTO) 6.9 % (3.0-13.0); NEUTROPHILS # (AUTO) 8.5 K/uL (1.8-7.7); NEUTROPHILS % (AUTO) 78.3 % (40.0-77.0); NUCLEATED RED BLOOD CELLS 0.9 % (0.0-0.19); PLATELET COUNT (AUTO) 338 K/uL (130-400); RED BLOOD CELL COUNT(AUTO) 3.33 MIL/uL (4.50-6.20); RED CELL DISTRIBUTION WIDTH 18.1 % (11.0-15.5); WHITE BLOOD COUNT (AUTO) 10.8 K/uL (4.8-10.8)
[2024-10-11 05:02] LABS: CREATININE 1.1 mg/dL (0.5-1.3)
[2024-10-11 05:15] LABS: POTASSIUM 2.7 mmol/L (3.5-5.1)
--- NOTE | 2024-10-11 06:30 | NUR ---
PATIENT REPORTS HE ATE JELLO AND HE IS STILL FEELING WELL. NO NAUSEA.
[2024-10-11] MEDS ORDERED: MAGNESIUM 2GM PREMIX 50ML 50 ML IV PRN (07:30)
[2024-10-11] MEDS ORDERED: PoTASSium chl 10% ELIXIR 20MEQ 20 MEQ/15 ML UDCUP PO PRN (07:30)
[2024-10-11] MEDS: PoTASSium chloRIDE 20MEQ/100ML 100 ML IV PRN (08:56)
--- NOTE | 2024-10-11 10:09 | PN ---
[facility] PROGRESS NOTE Date of Service: Oct 11, 2024 Time of Service: 09:59 SUBJECTIVE: 10/11 patient seen at bedside, no acute events overnight. Patient's nausea and vomiting have resolved, he was able to tolerate breakfast this morning with no subsequent symptoms. He does not appear to have tremor at this time, last dose of Librium was at three in the morning, we will continue with CIWA protocol. Potassium low from vomiting yesterday, will replete according to protocol REVIEW OF SYSTEMS 12 point ROS negative unless noted in HPI PHYSICAL EXAM GENERAL APPEARANCE: The patient is awake, alert, and oriented, in no acute cardiopulmonary distress. NEUROLOGICAL: Cranial nerves II-XII grossly intact. Motor is 5/5 in bilateral upper and lower extremities proximal to distal. No sensory deficits. HEENT: Face is symmetric. Pupils are equal and reactive. Extraocular movements are intact. NECK: Supple. No JVD. No thyromegaly. No submental, submandibular, pre- /postauricular, occipital or supraclavicular lymphadenopathy. CHEST: Normal chest expansion. No Telemetry. LUNGS: Absence of any rales, rhonchi or any wheezing. CARDIOVASCULAR: Regular. S1 and S2 normal. No appreciable rubs, murmurs or gallops. ABDOMEN: Soft, nontender, and nondistended. There is no rebound, voluntary guarding, or rigidity. : Deferred. No Valdez. EXTREMITIES: Non-edematous and not cyanotic. No clubbing. Good capillary refill. SKIN: No skin breakdown. Vital Signs (last 8hr) Date Time Temp Pulse Resp B/P (MAP) Pulse Ox O2 Delivery O2 Flow Rate FiO2 10/11/24 08:00 98.8 93 18 122/85 99 Room Air 21 10/11/24 04:00 98.8 91 20 120/79 99 Room Air LABS: Laboratory: Test 10/11/24 04:23 10/10/24 13:24 10/10/24 12:59 10/10/24 07:32 Range/Units White Blood Count 10.8 4.8-10.8 K/uL Red Blood Count 3.33 L 4.50-6.20 MIL/uL Hemoglobin 8.0 #L 14.0-18.0 g/dL Hematocrit 26.6 #L 42-54 % Mean Corpuscular Volume 79.9 79-99 fL Mean Corpuscular Hemoglobin 24.0 L 27.0-33.0 pg Mean Corpuscular Hemoglobin Concent 30.1 L 32.0-36.0 g/dL Red Cell Distribution Width 18.1 H 11.0-15.5 % Platelet Count 338 # 130-400 K/uL Mean Platelet Volume 9.8 7.5-10.5 fL Immature Granulocyte % (Auto) 0.5 0-1 % Neutrophils (%) (Auto) 78.3 H 40.0-77.0 % Lymphocytes (%) (Auto) 14.1 L 21.0-51.0 % Monocytes (%) (Auto) 6.9 3.0-13.0 % Eosinophils (%) (Auto) 0.0 0.0-8.0 % Basophils (%) (Auto) 0.2 0.0-5.0 % Neutrophils # (Auto) 8.5 H 1.8-7.7 K/uL Lymphocytes # (Auto) 1.5 1.0-4.8 K/uL Monocytes # (Auto) 0.8 0.1-1.0 K/uL Eosinophils # (Auto) 0.00 0.00-0.70 K/uL Basophils # (Auto) 0.02 0.00-0.20 K/uL Absolute Immature Granulocyte (auto 0.05 0-1 K/uL Nucleated Red Blood Cells 0.9 H 0.0-0.19 % Sodium Level 134 L 136-145 mmol/L Potassium Level 2.7 *L 3.5-5.1 mmol/L Chloride Level 95 L 101-111 mmol/L Carbon Dioxide Level 35 H 21-32 mmol/L Blood Urea Nitrogen 15 7-18 mg/dL Creatinine 1.1 0.5-1.3 mg/dL Glomerular Filtration Rate Calc 83 >90 mL/min Random Glucose 121 H 70-105 mg/dL Total Calcium 7.4 L 8.5-10.1 mg/dL Phosphorus Level 1.0 *L 2.5-4.9 mg/dL Magnesium Level 2.00 1.80-2.40 mg/dL Urine Color LIGHT-YELLOW YELLOW Urine Appearance CLEAR CLEAR Urine pH 5.5 5.0-8.0 Urine Specific [place] 1.026 1.001-1.031 Urine Protein 30 H NEGATIVE mg/dL Urine Glucose (UA) NEGATIVE NEGATIVE mg/dL Urine Ketones 60 H NEGATIVE mg/dL Urine Occult Blood +- (TRACE) H NEGATIVE Urine Nitrate NEGATIVE NEGATIVE Urine Bilirubin NEGATIVE NEGATIVE mg/dL Urine Urobilinogen 0.2 0.2-1.0 mg/dL Urine Leukocyte Esterase NEGATIVE NEGATIVE Riaz/uL Urine RBC 2-5 H 0-1 /HPF Urine WBC 0-1 0-1 /HPF Urine Bacteria None None Seen /HPF Urine Other Casts 2 None Seen /LPF Urine Osmolality 805 50-1200 mOsm/kg Urine Random Creatinine 138.52 H 30-135 mg/dL Urine Random Sodium 25 L 40-220 mmol/l Urine Opiates Screen NEGATIVE NEGATIVE Urine Barbiturates Screen NEGATIVE NEGATIVE Urine Phencyclidine Screen NEGATIVE NEGATIVE Urine Amphetamines Screen NEGATIVE NEGATIVE Urine Benzodiazepines Screen NEGATIVE NEGATIVE Urine Cocaine Screen NEGATIVE NEGATIVE Urine Marijuana (THC) Screen NEGATIVE NEGATIVE Lactic Acid Level 2.0 0.8-2.5 mmol/L Whole Blood Ketones Quantitative 2.0 H 0.0-0.6 mmol/L Iron Level 152 65-175 mcg/dL Total Iron Binding Capacity 527 H 250-450 mcg/dL Percent Iron Saturation 28.8 L 30-44 % Procalcitonin 3.73 H 0.05-0.5 ng/mL Test 10/10/24 03:38 10/10/24 01:06 Range/Units Blood Gas Specimen Type Arterial Arterial Blood pH 7.336 L 7.350-7.450 Arterial Blood Partial Pressure CO2 23 L 35-48 mmHg Arterial Blood Partial Pressure O2 97.2 83.0-108.0 mmHg Arterial Blood HCO3 12.2 L 21.0-28.0 mmol/L Arterial Blood Oxygen Saturation 97.2 94.0-98.0 % Arterial Blood Base Excess -11.4 L -2.0-3.0 mmol/L Blood Gas Temperature 37.0 35.5-37.0 CELSIUS Blood Gas Vent Mode RA,21 ROOM AIR FiO2 21.0 % Blood Gas Specimen Comment RR,RN GABRIELE White Cell Morphology Comment See comments Red Blood Cell Morphology See comments Total Bilirubin 0.8 0.2-1.0 mg/dL Direct Bilirubin 0.2 0.0-0.3 mg/dL Aspartate Amino Transf (AST/SGOT) 166 H 10-37 U/L Alanine Aminotransferase (ALT/SGPT) 66 12-78 U/L Alkaline Phosphatase 97 50-136 U/L B-Type Natriuretic Peptide 10 0-100 pg/mL Total Protein 9.3 H 6.0-8.3 g/dL Albumin 4.3 3.5-5.0 g/dL Lipase 103 H 16-77 U/L Serum Alcohol 4 0-10 mg/dL Current Medications Medications (Trade) Dose Ordered Sig/Aleida Route PRN Reason Start Time Stop Time Status Last Admin Dose Admin Acetaminophen (TYLenol 325MG TAB) 650 mg Q6H PRN PO TEMPERATURE GREATER THAN 101.5 10/10/24 04:00 11/09/24 03:59 Chlordiazepoxide HCl (LIBrium 25 MG CAP) 25 mg Q8H PO 10/10/24 03:30 10/17/24 03:29 10/11/24 03:26 25 MG Heparin Sodium (Porcine) (HEParin 5,000 UNIT VIAL) 5,000 unit BID SQ 10/10/24 09:00 11/09/24 08:59 10/11/24 08:19 5,000 UNIT Hydralazine HCl (APRESOLine 20MG INJ) 10 mg Q6H PRN IV For:SBP above 160;DBP above 90 10/10/24 04:00 11/09/24 03:59 Lorazepam (AtiVAN) 1 mg Q4H PRN IVP ALCOHOL WITHDRAWAL PROTOCOL 10/10/24 03:30 10/17/24 03:29 Magnesium Sulfate 50 ml @ 0 mls/hr PROTOCOL PRN IV MAGNESIUM PROTOCOL 10/11/24 07:30 11/10/24 07:29 Morphine Sulfate (morPHINE 2MG SYG) 2 mg Q4H PRN IVP SEVERE PAIN (7-10) 10/10/24 04:00 10/17/24 03:59 Ondansetron HCl (zoFRAN 4MG INJ) 4 mg Q6H PRN IV NAUSEA/VOMITING 10/10/24 04:00 10/10/24 11:34 DC 10/10/24 11:06 4 MG Pantoprazole Sodium (PROTonix 40MG TAB) 40 mg DAILY PO 10/10/24 09:00 11/09/24 08:59 10/11/24 08:16 40 MG Pharmacy Profile Note (Pharmacy Communication) 1 each PROTOCOL PRN MISC ETOH Withdrawal Score changes 10/10/24 03:30 10/17/24 03:29 Potassium Chloride 100 ml @ 100 mls/hr AD PRN IV POTASSIUM PROTOCOL 10/11/24 07:30 11/10/24 07:29 10/11/24 08:56 100 MLS/HR Potassium Chloride (K-Dur/Klor-Con 20meq) 20 meq AD PRN PO POTASSIUM PROTOCOL 10/11/24 07:30 11/10/24 07:29 Potassium Chloride (KCl 10% Elixir 20meq/15ml) 20 meq AD PRN PO POTASSIUM PROTOCOL 10/11/24 07:30 11/10/24 07:29 Prochlorperazine Edisylate (Compazine 10mg/ 2ml Inj) 5 mg Q6H PRN IV NAUSEA/VOMITING 10/10/24 11:30 11/09/24 11:29 10/10/24 23:58 5 MG Sodium Bicarbonate 150 meq/Dextrose 1,150 ml @ 125 mls/hr Q9H12M IVP 10/10/24 08:30 10/11/24 09:44 DC 10/10/24 23:46 125 MLS/HR Sodium Chloride 1,000 ml @ 0 mls/hr Q0M IV 10/10/24 08:30 11/09/24 08:29 Sodium Chloride 1,000 ml @ 125 mls/hr Q8H IV 10/10/24 08:30 10/10/24 08:38 DC Thiamine HCl 100 mg/Folic Acid 1 mg/Multivitamins/ Minerals 10 ml/ Sodium Chloride 1,011.2 ml @ 60 mls/hr Q24H IV 10/10/24 04:00 10/12/24 20:52 10/11/24 03:26 60 MLS/HR DIAGNOSTICS / RADIOLOGY: [ ] ASSESSMENT: Hepatomegaly, Hepatic Steatosis, POA Transaminitis, consistent with chronic alcohol abuse POA, improving Alcohol abuse, POA, 20 years plus patient report Acute Alcohol withdrawal Hypokalemia, POA Hyophosphatemia, POA Normochromic anemia, POA Hypoalbuminemia, POA Hypertriglyceridemia, POA PLAN: - Continue CIWA protocol - Continue banana bag x 3 days - Start diet, advance as tolerated - Pt would benefit from alcohol rehab program - Continue Magnesium and Potassium protocols - Triglyceride levels ordered,w ill follow up Disposition: Pending improvement in clinical status, transition to a rehab facility ROD HO MD Oct 11, 2024 10:09
--- NOTE | 2024-10-11 10:40 | NUR ---
Nutritional Note: Pt with reported N/V x 3 days and poor appetite >1 week. Pt reports an alcohol intake of 16oz of whisky/day. Pt currently on banana bag and iv fluids, 100% of meals taken. Pt chart shows pt with 6.1# wt gain since last wt on 08/03/24. Recommend: -Continue thiamine, folate and MVI -Consider zinc, vit d and b clomplex support due to chronic ETOH intake -ProStat BID (30 ml) JELLO - Monitor Electrolytes and replacements per protocol -Monitor feeding tolerance, %, wt, and labs -If No BM >3days consider bowel stimulant. -Schedule outpatient RD f/u for long-term nutrition care. - Notify RD if additional nutrition concerns arise. SEE RD Nutritional Assessment for additional assessment information. Addendum: 10/11/24 at [address] Amended: Links added.
[2024-10-11] MEDS ORDERED: poTASSium PHOS 15 mMOL+NS250ML 250 ML IV PRN (12:00)
[2024-10-11] MEDS: PoTASSium chloRIDE 20MEQ ER 20 MEQ ERTAB PO PRN (12:45)
[2024-10-11] MEDS ORDERED: COMPOUND IV MISC 1 EACH IVSOLN MISC PRN (15:30)
[2024-10-11] MEDS: IRON sUCROse COMPLEX 300 MG in 0.9% NACL 250ML 250 ML IV ONE (19:47)
--- NOTE | 2024-10-11 20:07 | PN ---
FOLLOWUP PROGRESS NOTE SUBJECTIVE: A 49-year-old male with history of known alcohol use. He presented to the hospital with acute renal failure. The patient's creatinine is much improved overnight. He remains with the IV hydration and the patient is being seen as a followup visit for all of the above. REVIEW OF SYSTEMS: GENERAL: He is feeling improved. HEENT: No change in vision. No change in hearing. CARDIOVASCULAR: There is no current chest pain or palpitations. PULMONARY: No shortness of breath. GASTROINTESTINAL: He is tolerating a diet. MUSCULOSKELETAL: Complains of weakness. PHYSICAL EXAMINATION: VITAL SIGNS: Blood pressure 132/85, pulse in the 90s. GENERAL: He is a chronically ill male, much older than appearing. HEENT: Head is atraumatic. Pupils equal, roving to light. Oropharynx is without exudate. Nares clear. NECK: There is no JVP. There is no thyromegaly, no mass. CARDIOVASCULAR: Regular. There is no S3, S4 gallop. LUNGS: Coarse with equal thoracic movement. ABDOMEN: Soft, nondistended, nontender. EXTREMITIES: Reveal no clubbing, no cyanosis. NEUROLOGIC: He is awake. He is alert. LABORATORY DATA: Sodium 134, potassium 2.7, chloride 95, bicarbonate 35, BUN 15, creatinine is 1, phosphorus is 1. Iron levels are noted. Hemoglobin 8, hematocrit 26. IMPRESSION: * Acute renal failure. * Electrolyte abnormalities. * History of alcohol use. * Hypertension. PLAN: The patient's sodium bicarb drip can be discontinued. He remains with banana bag. The patient's electrolytes will all be aggressively repleted and we will follow closely. All labs can be repeated in the a.m. The patient with multiple questions, all of which were answered. TID: [id number] RECEIPT: [id number]
[2024-10-12] VITALS (7 sets, daily range): BP systolic 121–134; BP diastolic 74–90; PULSE 86–93; RESP 16–19; TEMP 97.7–98.5; O2SAT 96–98
[2024-10-12 04:48] LABS: BASOPHILS # (AUTO) 0.03 K/uL (0.00-0.20); BASOPHILS % (AUTO) 0.5 % (0.0-5.0); EOSINOPHILS # (AUTO) 0.01 K/uL (0.00-0.70); EOSINOPHILS % (AUTO) 0.2 % (0.0-8.0); HEMATOCRIT 26.4 % (42-54); IMMATURE GRANULOCYTE ABSOLUTE 0.02 K/uL (0-1); LYMPHOCYTES # (AUTO) 1.3 K/uL (1.0-4.8); LYMPHOCYTES % (AUTO) 21.3 % (21.0-51.0); MEAN CORPUSCULAR HEMOGLOBIN 23.6 pg (27.0-33.0); MEAN CORPUSCULAR HGB CONC 28.4 g/dL (32.0-36.0); MONOCYTES # (AUTO) 0.4 K/uL (0.1-1.0); NEUTROPHILS # (AUTO) 4.3 K/uL (1.8-7.7); NEUTROPHILS % (AUTO) 70.7 % (40.0-77.0); PLATELET COUNT (AUTO) 323 K/uL (130-400); RED BLOOD CELL COUNT(AUTO) 3.18 MIL/uL (4.50-6.20); RED CELL DISTRIBUTION WIDTH 18.3 % (11.0-15.5); WHITE BLOOD COUNT (AUTO) 6.1 K/uL (4.8-10.8)
[2024-10-12 05:05] LABS: CREATININE 0.9 mg/dL (0.5-1.3); PHOSPHORUS 1.3 mg/dL (2.5-4.9); POTASSIUM 3.4 mmol/L (3.5-5.1)
--- NOTE | 2024-10-12 12:00 | PN ---
[facility] PROGRESS NOTE Date of Service: Oct 12, 2024 Time of Service: 11:58 SUBJECTIVE: 10/11 patient seen at bedside, no acute events overnight. Patient's nausea and vomiting have resolved, he was able to tolerate breakfast this morning with no subsequent symptoms. He does not appear to have tremor at this time, last dose of Librium was at three in the morning, we will continue with CIWA protocol. Potassium low from vomiting yesterday, will replete according to protocol 10/12 pt seen at bedside, no acute events overnight. Pt asymptomatic for 24 hours, will wean librium. Nursing instructed to not give librium if CIWA is less than 8. Social work to faciliate with placement to alcohol rehab however patient is self pay, he would have to voluntarily admit himself REVIEW OF SYSTEMS 12 point ROS negative unless noted in HPI PHYSICAL EXAM GENERAL APPEARANCE: The patient is awake, alert, and oriented, in no acute cardiopulmonary distress. NEUROLOGICAL: Cranial nerves II-XII grossly intact. Motor is 5/5 in bilateral upper and lower extremities proximal to distal. No sensory deficits. HEENT: Face is symmetric. Pupils are equal and reactive. Extraocular movements are intact. NECK: Supple. No JVD. No thyromegaly. No submental, submandibular, pre- /postauricular, occipital or supraclavicular lymphadenopathy. CHEST: Normal chest expansion. No Telemetry. LUNGS: Absence of any rales, rhonchi or any wheezing. CARDIOVASCULAR: Regular. S1 and S2 normal. No appreciable rubs, murmurs or gallops. ABDOMEN: Soft, nontender, and nondistended. There is no rebound, voluntary guarding, or rigidity. : Deferred. No Valdez. EXTREMITIES: Non-edematous and not cyanotic. No clubbing. Good capillary refill. SKIN: No skin breakdown. Vital Signs (last 8hr) Date Time Temp Pulse Resp B/P (MAP) Pulse Ox O2 Delivery O2 Flow Rate FiO2 10/12/24 08:00 98.2 86 16 134/82 98 Room Air 10/12/24 08:00 98 Room Air* 0 10/12/24 04:08 98.4 87 18 131/90 98 Room Air LABS: Laboratory: Test 10/12/24 04:17 10/11/24 04:32 10/11/24 04:23 10/10/24 13:24 Range/Units White Blood Count 6.1 # 4.8-10.8 K/uL Red Blood Count 3.18 L 4.50-6.20 MIL/uL Hemoglobin 7.5 L 14.0-18.0 g/dL Hematocrit 26.4 L 42-54 % Mean Corpuscular Volume 83.0 79-99 fL Mean Corpuscular Hemoglobin 23.6 L 27.0-33.0 pg Mean Corpuscular Hemoglobin Concent 28.4 L 32.0-36.0 g/dL Red Cell Distribution Width 18.3 H 11.0-15.5 % Platelet Count 323 130-400 K/uL Mean Platelet Volume 10.3 7.5-10.5 fL Immature Granulocyte % (Auto) 0.3 0-1 % Neutrophils (%) (Auto) 70.7 40.0-77.0 % Lymphocytes (%) (Auto) 21.3 21.0-51.0 % Monocytes (%) (Auto) 7.0 3.0-13.0 % Eosinophils (%) (Auto) 0.2 0.0-8.0 % Basophils (%) (Auto) 0.5 0.0-5.0 % Neutrophils # (Auto) 4.3 1.8-7.7 K/uL Lymphocytes # (Auto) 1.3 1.0-4.8 K/uL Monocytes # (Auto) 0.4 0.1-1.0 K/uL Eosinophils # (Auto) 0.01 0.00-0.70 K/uL Basophils # (Auto) 0.03 0.00-0.20 K/uL Absolute Immature Granulocyte (auto 0.02 0-1 K/uL Nucleated Red Blood Cells 1.0 H 0.0-0.19 % Sodium Level 137 136-145 mmol/L Potassium Level 3.4 L 3.5-5.1 mmol/L Chloride Level 103 101-111 mmol/L Carbon Dioxide Level 28 21-32 mmol/L Blood Urea Nitrogen 9 7-18 mg/dL Creatinine 0.9 0.5-1.3 mg/dL Glomerular Filtration Rate Calc 105 >90 mL/min Random Glucose 82 70-105 mg/dL Total Calcium 7.6 L 8.5-10.1 mg/dL Phosphorus Level 1.3 L 2.5-4.9 mg/dL Triglycerides Level 205 H 30-200 mg/dL Magnesium Level 2.00 1.80-2.40 mg/dL Urine Color LIGHT-YELLOW YELLOW Urine Appearance CLEAR CLEAR Urine pH 5.5 5.0-8.0 Urine Specific [place] 1.026 1.001-1.031 Urine Protein 30 H NEGATIVE mg/dL Urine Glucose (UA) NEGATIVE NEGATIVE mg/dL Urine Ketones 60 H NEGATIVE mg/dL Urine Occult Blood +- (TRACE) H NEGATIVE Urine Nitrate NEGATIVE NEGATIVE Urine Bilirubin NEGATIVE NEGATIVE mg/dL Urine Urobilinogen 0.2 0.2-1.0 mg/dL Urine Leukocyte Esterase NEGATIVE NEGATIVE Riaz/uL Urine RBC 2-5 H 0-1 /HPF Urine WBC 0-1 0-1 /HPF Urine Bacteria None None Seen /HPF Urine Other Casts 2 None Seen /LPF Urine Osmolality 805 50-1200 mOsm/kg Urine Random Creatinine 138.52 H 30-135 mg/dL Urine Random Sodium 25 L 40-220 mmol/l Urine Opiates Screen NEGATIVE NEGATIVE Urine Barbiturates Screen NEGATIVE NEGATIVE Urine Phencyclidine Screen NEGATIVE NEGATIVE Urine Amphetamines Screen NEGATIVE NEGATIVE Urine Benzodiazepines Screen NEGATIVE NEGATIVE Urine Cocaine Screen NEGATIVE NEGATIVE Urine Marijuana (THC) Screen NEGATIVE NEGATIVE Test 10/10/24 12:59 Range/Units Lactic Acid Level 2.0 0.8-2.5 mmol/L Current Medications Medications (Trade) Dose Ordered Sig/Aleida Route PRN Reason Start Time Stop Time Status Last Admin Dose Admin Acetaminophen (TYLenol 325MG TAB) 650 mg Q6H PRN PO TEMPERATURE GREATER THAN 101.5 10/10/24 04:00 11/09/24 03:59 Chlordiazepoxide HCl (LIBrium 25 MG CAP) 25 mg Q8H PO 10/10/24 03:30 10/17/24 03:29 10/12/24 03:29 25 MG Heparin Sodium (Porcine) (HEParin 5,000 UNIT VIAL) 5,000 unit BID SQ 10/10/24 09:00 11/09/24 08:59 10/12/24 08:34 5,000 UNIT Hydralazine HCl (APRESOLine 20MG INJ) 10 mg Q6H PRN IV For:SBP above 160;DBP above 90 10/10/24 04:00 11/09/24 03:59 Lorazepam (AtiVAN) 1 mg Q4H PRN IVP ALCOHOL WITHDRAWAL PROTOCOL 10/10/24 03:30 10/17/24 03:29 Magnesium Sulfate 50 ml @ 0 mls/hr PROTOCOL PRN IV MAGNESIUM PROTOCOL 10/11/24 07:30 11/10/24 07:29 Morphine Sulfate (morPHINE 2MG SYG) 2 mg Q4H PRN IVP SEVERE PAIN (7-10) 10/10/24 04:00 10/17/24 03:59 Ondansetron HCl (zoFRAN 4MG INJ) 4 mg Q6H PRN IV NAUSEA/VOMITING 10/10/24 04:00 10/10/24 11:34 DC 10/10/24 11:06 4 MG Pantoprazole Sodium (PROTonix 40MG TAB) 40 mg DAILY PO 10/10/24 09:00 11/09/24 08:59 10/12/24 08:24 40 MG Pharmacy Profile Note (Pharmacy Communication) 1 each PROTOCOL PRN MISC ETOH Withdrawal Score changes 10/10/24 03:30 10/17/24 03:29 Potassium Phosphate 250 ml @ 42 mls/hr PROTOCOL PRN IV PROTOCOL 10/11/24 12:00 11/10/24 11:59 Potassium Chloride 100 ml @ 100 mls/hr AD PRN IV POTASSIUM PROTOCOL 10/11/24 07:30 11/10/24 07:29 10/11/24 08:56 100 MLS/HR Potassium Chloride (K-Dur/Klor-Con 20meq) 20 meq AD PRN PO POTASSIUM PROTOCOL 10/11/24 07:30 11/10/24 07:29 10/12/24 05:42 20 MEQ Potassium Chloride (KCl 10% Elixir 20meq/15ml) 20 meq AD PRN PO POTASSIUM PROTOCOL 10/11/24 07:30 11/10/24 07:29 Prochlorperazine Edisylate (Compazine 10mg/ 2ml Inj) 5 mg Q6H PRN IV NAUSEA/VOMITING 10/10/24 11:30 11/09/24 11:29 10/10/24 23:58 5 MG Sodium Bicarbonate 150 meq/Dextrose 1,150 ml @ 125 mls/hr Q9H12M IVP 10/10/24 08:30 10/11/24 09:44 DC 10/10/24 23:46 125 MLS/HR Sodium Chloride 1,000 ml @ 0 mls/hr Q0M IV 10/10/24 08:30 11/09/24 08:29 Sodium Chloride 1,000 ml @ 125 mls/hr Q8H IV 10/10/24 08:30 10/10/24 08:38 DC Thiamine HCl 100 mg/Folic Acid 1 mg/Multivitamins/ Minerals 10 ml/ Sodium Chloride 1,011.2 ml @ 60 mls/hr Q24H IV 10/10/24 04:00 10/12/24 20:52 10/12/24 03:29 60 MLS/HR DIAGNOSTICS / RADIOLOGY: [ ] ASSESSMENT: Hepatomegaly, Hepatic Steatosis, POA Transaminitis, consistent with chronic alcohol abuse POA, improving Alcohol abuse, POA, 20 years plus patient report Acute Alcohol withdrawal Hypokalemia, POA Hyophosphatemia, POA Normochromic anemia, POA Hypoalbuminemia, POA Hypertriglyceridemia, POA PLAN: - Continue CIWA protocol - Continue banana bag x 3 days - Continue diet - Pt would benefit from alcohol rehab program, is self pay - Continue Magnesium and Potassium protocols - Triglyceride levels ordered,w ill follow up Disposition: Pending improvement in clinical status, wean off librium ROD HO MD Oct 12, 2024 12:00
--- NOTE | 2024-10-12 14:32 | PN ---
NEPHROLOGY PROGRESS NOTE Date/Time Patient Seen: Oct 12, 2024 Reason for Consultation: 14:29 SUBJECTIVE: This is an 49-year-old male with history of known alcohol use. He presented to the hospital with acute renal failure. The patient's creatinine is much improved overnight. He remains with the IV hydration Renal function is stable Electrolytes are stable, potassium is 3.4. He was seen in the medical floor, in no acute distress Family at the bedside, multiple questions were answered Prognosis remains guarded REVIEW OF SYSTEMS: GENERAL: Positive for generalized weakness NEUROLOGIC: Negative for any blurry vision, blind spots, double vision, facial asymmetry, dysphagia, dysarthria, hemiparesis, hemisensory deficits, vertigo, ataxia. HEENT: Negative for any head trauma, neck trauma, neck stiffness, photophobia, phonophobia, sinusitis, rhinitis. CARDIAC: Negative for any chest pain, dyspnea on exertion, paroxysmal nocturnal dyspnea, peripheral edema. PULMONARY: Negative for any shortness of breath, wheezing, COPD, or TB exposure. GASTROINTESTINAL: Negative for any abdominal pain, nausea, vomiting, bright red blood per rectum, melena. GENITOURINARY: Negative for any dysuria, hematuria, incontinence. INTEGUMENTARY: Negative for any rashes, cuts, insect bites. RHEUMATOLOGIC: Negative for any joint pains, photosensitive rashes, history of vasculitis or kidney problems. HEMATOLOGIC: Negative for any abnormal bruising, frequent infections or bleeding. Vital Signs (last 8hr) Date Time Temp Pulse Resp B/P (MAP) Pulse Ox O2 Delivery O2 Flow Rate FiO2 10/12/24 12:00 98.1 88 16 121/85 97 Room Air 21 10/12/24 08:00 98.2 86 16 134/82 98 Room Air 21 10/12/24 08:00 98 Room Air* 0 21 PHYSICAL EXAM: GENERAL: Alert and oriented x 3. No acute distress. Well-nourished. EYES: EOMI. Anicteric. HENT: Moist mucous membranes. No scleral icterus. No cervical lymphadenopathy. LUNGS: Clear to auscultation bilaterally. No accessory muscle use. CARDIOVASCULAR: Regular rate and rhythm. No murmur. No JVD. ABDOMEN: Soft, non-tender and non-distended. No palpable masses. EXTREMITIES: No edema. Non-tender. SKIN: No rashes or lesions. Warm. NEUROLOGIC: No focal neurological deficits. CN II-XII grossly intact, but not individually tested. PSYCHIATRIC: Cooperative. Appropriate mood and affect. Current Medications Medications (Trade) Dose Ordered Sig/Aleida Route PRN Reason Start Time Stop Time Status Last Admin Dose Admin Acetaminophen (TYLenol 325MG TAB) 650 mg Q6H PRN PO TEMPERATURE GREATER THAN 101.5 10/10/24 04:00 11/09/24 03:59 Chlordiazepoxide HCl (LIBrium 25 MG CAP) 25 mg Q8H PO 10/10/24 03:30 10/17/24 03:29 10/12/24 03:29 25 MG Heparin Sodium (Porcine) (HEParin 5,000 UNIT VIAL) 5,000 unit BID SQ 10/10/24 09:00 11/09/24 08:59 10/12/24 08:34 5,000 UNIT Hydralazine HCl (APRESOLine 20MG INJ) 10 mg Q6H PRN IV For:SBP above 160;DBP above 90 10/10/24 04:00 11/09/24 03:59 Lorazepam (AtiVAN) 1 mg Q4H PRN IVP ALCOHOL WITHDRAWAL PROTOCOL 10/10/24 03:30 10/17/24 03:29 Magnesium Sulfate 50 ml @ 0 mls/hr PROTOCOL PRN IV MAGNESIUM PROTOCOL 10/11/24 07:30 11/10/24 07:29 Morphine Sulfate (morPHINE 2MG SYG) 2 mg Q4H PRN IVP SEVERE PAIN (7-10) 10/10/24 04:00 10/17/24 03:59 Ondansetron HCl (zoFRAN 4MG INJ) 4 mg Q6H PRN IV NAUSEA/VOMITING 10/10/24 04:00 10/10/24 11:34 DC 10/10/24 11:06 4 MG Pantoprazole Sodium (PROTonix 40MG TAB) 40 mg DAILY PO 10/10/24 09:00 11/09/24 08:59 10/12/24 08:24 40 MG Pharmacy Profile Note (Pharmacy Communication) 1 each PROTOCOL PRN MISC ETOH Withdrawal Score changes 10/10/24 03:30 10/17/24 03:29 Potassium Phosphate 250 ml @ 42 mls/hr PROTOCOL PRN IV PROTOCOL 10/11/24 12:00 11/10/24 11:59 Potassium Chloride 100 ml @ 100 mls/hr AD PRN IV POTASSIUM PROTOCOL 10/11/24 07:30 11/10/24 07:29 10/11/24 08:56 100 MLS/HR Potassium Chloride (K-Dur/Klor-Con 20meq) 20 meq AD PRN PO POTASSIUM PROTOCOL 10/11/24 07:30 11/10/24 07:29 10/12/24 05:42 20 MEQ Potassium Chloride (KCl 10% Elixir 20meq/15ml) 20 meq AD PRN PO POTASSIUM PROTOCOL 10/11/24 07:30 11/10/24 07:29 Prochlorperazine Edisylate (Compazine 10mg/ 2ml Inj) 5 mg Q6H PRN IV NAUSEA/VOMITING 10/10/24 11:30 11/09/24 11:29 10/10/24 23:58 5 MG Sodium Bicarbonate 150 meq/Dextrose 1,150 ml @ 125 mls/hr Q9H12M IVP 10/10/24 08:30 10/11/24 09:44 DC 10/10/24 23:46 125 MLS/HR Sodium Chloride 1,000 ml @ 0 mls/hr Q0M IV 10/10/24 08:30 11/09/24 08:29 Sodium Chloride 1,000 ml @ 125 mls/hr Q8H IV 10/10/24 08:30 10/10/24 08:38 DC Thiamine HCl 100 mg/Folic Acid 1 mg/Multivitamins/ Minerals 10 ml/ Sodium Chloride 1,011.2 ml @ 60 mls/hr Q24H IV 10/10/24 04:00 10/12/24 20:52 10/12/24 03:29 60 MLS/HR LABORATORY: [ ] Hematology Labs: Test 10/12/24 04:17 Range/Units White Blood Count 6.1 # 4.8-10.8 K/uL Red Blood Count 3.18 L 4.50-6.20 MIL/uL Hemoglobin 7.5 L 14.0-18.0 g/dL Hematocrit 26.4 L 42-54 % Mean Corpuscular Volume 83.0 79-99 fL Mean Corpuscular Hemoglobin 23.6 L 27.0-33.0 pg Mean Corpuscular Hemoglobin Concent 28.4 L 32.0-36.0 g/dL Red Cell Distribution Width 18.3 H 11.0-15.5 % Platelet Count 323 130-400 K/uL Mean Platelet Volume 10.3 7.5-10.5 fL Immature Granulocyte % (Auto) 0.3 0-1 % Neutrophils (%) (Auto) 70.7 40.0-77.0 % Lymphocytes (%) (Auto) 21.3 21.0-51.0 % Monocytes (%) (Auto) 7.0 3.0-13.0 % Eosinophils (%) (Auto) 0.2 0.0-8.0 % Basophils (%) (Auto) 0.5 0.0-5.0 % Neutrophils # (Auto) 4.3 1.8-7.7 K/uL Lymphocytes # (Auto) 1.3 1.0-4.8 K/uL Monocytes # (Auto) 0.4 0.1-1.0 K/uL Eosinophils # (Auto) 0.01 0.00-0.70 K/uL Basophils # (Auto) 0.03 0.00-0.20 K/uL Absolute Immature Granulocyte (auto 0.02 0-1 K/uL Nucleated Red Blood Cells 1.0 H 0.0-0.19 % Chemistry Labs: Test 10/12/24 04:17 10/11/24 04:32 10/11/24 04:23 Range/Units Sodium Level 137 136-145 mmol/L Potassium Level 3.4 L 3.5-5.1 mmol/L Chloride Level 103 101-111 mmol/L Carbon Dioxide Level 28 21-32 mmol/L Blood Urea Nitrogen 9 7-18 mg/dL Creatinine 0.9 0.5-1.3 mg/dL Glomerular Filtration Rate Calc 105 >90 mL/min Random Glucose 82 70-105 mg/dL Total Calcium 7.6 L 8.5-10.1 mg/dL Phosphorus Level 1.3 L 2.5-4.9 mg/dL Triglycerides Level 205 H 30-200 mg/dL Magnesium Level 2.00 1.80-2.40 mg/dL DIAGNOSTICS / RADIOLOGY: REASON: weakness ORDERING PHYSICIAN: NEHA COOK PROCEDURE: CXR1VW - CHEST 1VW Exam Type: CHEST 1VW Clinical Information: weakness Comparison: None Findings: The lungs are clear of infiltrates. The heart is normal in size. The bony and soft tissue structures of the chest are unremarkable. Impression: Clear lungs. DICTATED BY: BETITO MENEZES MD DATE: 10/10/24 1029 REASON: vomiting, abdominal distention, hx alcohol abuse, pancreatitis ORDERING PHYSICIAN: IFRAH ASHLEY NP PROCEDURE: ABD PEL WO - CT ABDOMEN/PELVIS W/O CONTRAST Exam Type: CT ABDOMEN/PELVIS W/O CONTRAST Clinical Information: vomiting, abdominal distention, hx alcohol abuse, pancreatitis Comparison: None CT Dose Index (CTDI): 10.20 mGy Dose Length Product (DLP): 530.00 total mGy-cm PROTOCOL: Routine noncontrast helical scanning of the abdomen and pelvis was performed at 5mm collimation. Findings: No evidence of nephro or ureterolithiasis is found. No hydronephrosis or ureteral dilatation is seen. The lung bases are clear. There is distention of the distal esophagus consistent with gastroesophageal reflux and there is a small hiatal hernia. The spleen is unremarkable. It is not enlarged. The pancreas shows normal anatomy. It is not fatty replaced. It shows no lesions. The pancreatic duct is not dilated. The gallbladder is unremarkable. It shows no cholelithiasis. The gallbladder wall is normal in thickness. There is no pericholecystic fluid. The is no acute or chronic inflammation noted. The adrenal glands are unremarkable. There is no enlargement. No lesions are noted. The liver shows diffuse fatty infiltration. It shows no focal lesions. The liver is enlarged. The appendix is unremarkable. It shows no evidence of inflammation. No appendicolith is seen. The small bowel is unremarkable. There is no evidence of dilatation to suggest obstruction. No evidence of adynamic ileus is seen. There is no small bowel wall thickening to suggest enteritis. The colon is unremarkable. The urinary bladder is unremarkable. There is no wall thickening to suggest tumor or inflammation. There are no intraluminal calculi. There are no diverticula. There is no evidence of chronic bladder outlet obstruction. There is no evidence of urinary bladder distention to suggest urinary retention. The other pelvic structures are unremarkable. The bony and vascular structures are unremarkable for the patient's age. IMPRESSION: Hiatal hernia and esophageal reflux. Fatty liver. This study was performed using dose reduction techniques to include automated exposure control and/or adjustment of the mA and/or kV according to patient size. DICTATED BY: BETITO MENEZES MD DATE: 10/10/24 0842 ASSESSMENT: Hepatomegaly, Hepatic Steatosis, POA Transaminitis, consistent with chronic alcohol abuse POA, improving Alcohol abuse, POA, 20 years plus patient report Acute Alcohol withdrawal Hypokalemia, POA Hypophosphatemia, POA Normochromic anemia, POA Hypoalbuminemia, POA Hypertriglyceridemia, POA PLAN: Labs, diagnostic, radiologic exams reviewed and interpreted by myself and supervising physician. We have reviewed external records in detail Require close monitoring of renal function and electrolytes Order CBC, CMP, and electrolytes in am BiPAP as necessary, for respiratory distress Monitor blood pressure adjust medication doses as needed Avoid hypotensive episodes May use Dilaudid 0.5 mg IV every 6 hours as needed for severe pain Monitor blood sugars Strict intake, output, and daily weight should be monitored Please renally adjust medications Avoid nephrotoxic and nonsteroidal drugs Avoid contrast if possible Will continue to monitor renal function, anemia, electrolytes Treatment plan discussed with patient Questions were answered We have discussed with the other team physicians in detail about the care plan We will continue to monitor the patient closely ATTESTATION BY PHYSICIAN I have seen and examined the patient. I reviewed the documentation, medical decision making, and treatment plan as noted by the mid-level provider above. I agree with the findings and plan of care. ASHLEY JENKINS MD, [facility] Oct 12, 2024 14:32
[2024-10-13] VITALS (7 sets, daily range): BP systolic 121–139; BP diastolic 81–90; PULSE 82–95; RESP 18–19; TEMP 98.1–98.6; O2SAT 98
[2024-10-13 04:17] LABS: HEMATOCRIT 28.9 % (42-54); MEAN CORPUSCULAR HEMOGLOBIN 23.7 pg (27.0-33.0); MEAN CORPUSCULAR VOLUME 84.5 fL (79-99); NUCLEATED RED BLOOD CELLS 2.2 % (0.0-0.19); RED BLOOD CELL COUNT(AUTO) 3.42 MIL/uL (4.50-6.20); RED CELL DISTRIBUTION WIDTH 19.2 % (11.0-15.5); WHITE BLOOD COUNT (AUTO) 7.4 K/uL (4.8-10.8)
[2024-10-13 04:37] LABS: ALBUMIN 3.1 g/dL (3.5-5.0); BILIRUBIN,TOTAL 0.3 mg/dL (0.2-1.0); CREATININE 0.8 mg/dL (0.5-1.3); PHOSPHORUS 1.6 mg/dL (2.5-4.9); POTASSIUM 3.6 mmol/L (3.5-5.1); TOTAL PROTEIN, SERUM 7.1 g/dL (6.0-8.3)
[2024-10-13] MEDS ORDERED: BisaCODYL 5 MG TABLET.DR PO PRN (06:00)
--- NOTE | 2024-10-13 14:17 | PN ---
NEPHROLOGY PROGRESS NOTE Date/Time Patient Seen: Oct 13, 2024 Reason for Consultation: 14:16 SUBJECTIVE: This is an 49-year-old male with history of known alcohol use. He presented to the hospital with acute renal failure. The patient's creatinine is much improved overnight. He remains with the IV hydration Renal function is stable Electrolytes are stable He was seen in the medical floor, in no acute distress Family at the bedside Prognosis remains guarded REVIEW OF SYSTEMS: GENERAL: Positive for generalized weakness NEUROLOGIC: Negative for any blurry vision, blind spots, double vision, facial asymmetry, dysphagia, dysarthria, hemiparesis, hemisensory deficits, vertigo, ataxia. HEENT: Negative for any head trauma, neck trauma, neck stiffness, photophobia, phonophobia, sinusitis, rhinitis. CARDIAC: Negative for any chest pain, dyspnea on exertion, paroxysmal nocturnal dyspnea, peripheral edema. PULMONARY: Negative for any shortness of breath, wheezing, COPD, or TB exposure. GASTROINTESTINAL: Negative for any abdominal pain, nausea, vomiting, bright red blood per rectum, melena. GENITOURINARY: Negative for any dysuria, hematuria, incontinence. INTEGUMENTARY: Negative for any rashes, cuts, insect bites. RHEUMATOLOGIC: Negative for any joint pains, photosensitive rashes, history of vasculitis or kidney problems. HEMATOLOGIC: Negative for any abnormal bruising, frequent infections or bleeding. Vital Signs (last 8hr) Date Time Temp Pulse Resp B/P (MAP) Pulse Ox O2 Delivery O2 Flow Rate FiO2 10/12/24 12:00 98.1 88 16 121/85 97 Room Air 21 10/12/24 08:00 98.2 86 16 134/82 98 Room Air 21 10/12/24 08:00 98 Room Air* 0 21 PHYSICAL EXAM: GENERAL: Alert and oriented x 3. No acute distress. Well-nourished. EYES: EOMI. Anicteric. HENT: Moist mucous membranes. No scleral icterus. No cervical lymphadenopathy. LUNGS: Clear to auscultation bilaterally. No accessory muscle use. CARDIOVASCULAR: Regular rate and rhythm. No murmur. No JVD. ABDOMEN: Soft, non-tender and non-distended. No palpable masses. EXTREMITIES: No edema. Non-tender. SKIN: No rashes or lesions. Warm. NEUROLOGIC: No focal neurological deficits. CN II-XII grossly intact, but not individually tested. PSYCHIATRIC: Cooperative. Appropriate mood and affect. Current Medications Medications (Trade) Dose Ordered Sig/Aleida Route PRN Reason Start Time Stop Time Status Last Admin Dose Admin Acetaminophen (TYLenol 325MG TAB) 650 mg Q6H PRN PO TEMPERATURE GREATER THAN 101.5 10/10/24 04:00 11/09/24 03:59 Chlordiazepoxide HCl (LIBrium 25 MG CAP) 25 mg Q8H PO 10/10/24 03:30 10/17/24 03:29 10/12/24 03:29 25 MG Heparin Sodium (Porcine) (HEParin 5,000 UNIT VIAL) 5,000 unit BID SQ 10/10/24 09:00 11/09/24 08:59 10/12/24 08:34 5,000 UNIT Hydralazine HCl (APRESOLine 20MG INJ) 10 mg Q6H PRN IV For:SBP above 160;DBP above 90 10/10/24 04:00 11/09/24 03:59 Lorazepam (AtiVAN) 1 mg Q4H PRN IVP ALCOHOL WITHDRAWAL PROTOCOL 10/10/24 03:30 10/17/24 03:29 Magnesium Sulfate 50 ml @ 0 mls/hr PROTOCOL PRN IV MAGNESIUM PROTOCOL 10/11/24 07:30 11/10/24 07:29 Morphine Sulfate (morPHINE 2MG SYG) 2 mg Q4H PRN IVP SEVERE PAIN (7-10) 10/10/24 04:00 10/17/24 03:59 Ondansetron HCl (zoFRAN 4MG INJ) 4 mg Q6H PRN IV NAUSEA/VOMITING 10/10/24 04:00 10/10/24 11:34 DC 10/10/24 11:06 4 MG Pantoprazole Sodium (PROTonix 40MG TAB) 40 mg DAILY PO 10/10/24 09:00 11/09/24 08:59 10/12/24 08:24 40 MG Pharmacy Profile Note (Pharmacy Communication) 1 each PROTOCOL PRN MISC ETOH Withdrawal Score changes 10/10/24 03:30 10/17/24 03:29 Potassium Phosphate 250 ml @ 42 mls/hr PROTOCOL PRN IV PROTOCOL 10/11/24 12:00 11/10/24 11:59 Potassium Chloride 100 ml @ 100 mls/hr AD PRN IV POTASSIUM PROTOCOL 10/11/24 07:30 11/10/24 07:29 10/11/24 08:56 100 MLS/HR Potassium Chloride (K-Dur/Klor-Con 20meq) 20 meq AD PRN PO POTASSIUM PROTOCOL 10/11/24 07:30 11/10/24 07:29 10/12/24 05:42 20 MEQ Potassium Chloride (KCl 10% Elixir 20meq/15ml) 20 meq AD PRN PO POTASSIUM PROTOCOL 10/11/24 07:30 11/10/24 07:29 Prochlorperazine Edisylate (Compazine 10mg/ 2ml Inj) 5 mg Q6H PRN IV NAUSEA/VOMITING 10/10/24 11:30 11/09/24 11:29 10/10/24 23:58 5 MG Sodium Bicarbonate 150 meq/Dextrose 1,150 ml @ 125 mls/hr Q9H12M IVP 10/10/24 08:30 10/11/24 09:44 DC 10/10/24 23:46 125 MLS/HR Sodium Chloride 1,000 ml @ 0 mls/hr Q0M IV 10/10/24 08:30 11/09/24 08:29 Sodium Chloride 1,000 ml @ 125 mls/hr Q8H IV 10/10/24 08:30 10/10/24 08:38 DC Thiamine HCl 100 mg/Folic Acid 1 mg/Multivitamins/ Minerals 10 ml/ Sodium Chloride 1,011.2 ml @ 60 mls/hr Q24H IV 10/10/24 04:00 10/12/24 20:52 10/12/24 03:29 60 MLS/HR LABORATORY: [ ] Hematology Labs: Test 10/13/24 04:07 10/12/24 04:17 Range/Units White Blood Count 7.4 4.8-10.8 K/uL Red Blood Count 3.42 L 4.50-6.20 MIL/uL Hemoglobin 8.1 L 14.0-18.0 g/dL Hematocrit 28.9 L 42-54 % Mean Corpuscular Volume 84.5 79-99 fL Mean Corpuscular Hemoglobin 23.7 L 27.0-33.0 pg Mean Corpuscular Hemoglobin Concent 28.0 L 32.0-36.0 g/dL Red Cell Distribution Width 19.2 H 11.0-15.5 % Platelet Count 345 130-400 K/uL Mean Platelet Volume 10.0 7.5-10.5 fL Nucleated Red Blood Cells 2.2 H 0.0-0.19 % Immature Granulocyte % (Auto) 0.3 0-1 % Neutrophils (%) (Auto) 70.7 40.0-77.0 % Lymphocytes (%) (Auto) 21.3 21.0-51.0 % Monocytes (%) (Auto) 7.0 3.0-13.0 % Eosinophils (%) (Auto) 0.2 0.0-8.0 % Basophils (%) (Auto) 0.5 0.0-5.0 % Neutrophils # (Auto) 4.3 1.8-7.7 K/uL Lymphocytes # (Auto) 1.3 1.0-4.8 K/uL Monocytes # (Auto) 0.4 0.1-1.0 K/uL Eosinophils # (Auto) 0.01 0.00-0.70 K/uL Basophils # (Auto) 0.03 0.00-0.20 K/uL Absolute Immature Granulocyte (auto 0.02 0-1 K/uL Chemistry Labs: Test 10/13/24 04:07 Range/Units Sodium Level 137 136-145 mmol/L Potassium Level 3.6 3.5-5.1 mmol/L Chloride Level 102 101-111 mmol/L Carbon Dioxide Level 26 21-32 mmol/L Blood Urea Nitrogen 6 L 7-18 mg/dL Creatinine 0.8 0.5-1.3 mg/dL Glomerular Filtration Rate Calc 109 >90 mL/min Random Glucose 78 70-105 mg/dL Total Calcium 8.6 8.5-10.1 mg/dL Phosphorus Level 1.6 L 2.5-4.9 mg/dL Magnesium Level 2.00 1.80-2.40 mg/dL Total Bilirubin 0.3 0.2-1.0 mg/dL Aspartate Amino Transf (AST/SGOT) 40 H 10-37 U/L Alanine Aminotransferase (ALT/SGPT) 42 12-78 U/L Alkaline Phosphatase 64 50-136 U/L Total Protein 7.1 6.0-8.3 g/dL Albumin 3.1 L 3.5-5.0 g/dL DIAGNOSTICS / RADIOLOGY: REASON: weakness ORDERING PHYSICIAN: JOEY,NEHA D OBSTETRICS TECH PROCEDURE: CXR1VW - CHEST 1VW Exam Type: CHEST 1VW Clinical Information: weakness Comparison: None Findings: The lungs are clear of infiltrates. The heart is normal in size. The bony and soft tissue structures of the chest are unremarkable. Impression: Clear lungs. DICTATED BY: BETITO MENEZES MD DATE: 10/10/24 1029 REASON: vomiting, abdominal distention, hx alcohol abuse, pancreatitis ORDERING PHYSICIAN: IFRAH ASHLEY NP PROCEDURE: ABD PEL WO - CT ABDOMEN/PELVIS W/O CONTRAST Exam Type: CT ABDOMEN/PELVIS W/O CONTRAST Clinical Information: vomiting, abdominal distention, hx alcohol abuse, pancreatitis Comparison: None CT Dose Index (CTDI): 10.20 mGy Dose Length Product (DLP): 530.00 total mGy-cm PROTOCOL: Routine noncontrast helical scanning of the abdomen and pelvis was performed at 5mm collimation. Findings: No evidence of nephro or ureterolithiasis is found. No hydronephrosis or ureteral dilatation is seen. The lung bases are clear. There is distention of the distal esophagus consistent with gastroesophageal reflux and there is a small hiatal hernia. The spleen is unremarkable. It is not enlarged. The pancreas shows normal anatomy. It is not fatty replaced. It shows no lesions. The pancreatic duct is not dilated. The gallbladder is unremarkable. It shows no cholelithiasis. The gallbladder wall is normal in thickness. There is no pericholecystic fluid. The is no acute or chronic inflammation noted. The adrenal glands are unremarkable. There is no enlargement. No lesions are noted. The liver shows diffuse fatty infiltration. It shows no focal lesions. The liver is enlarged. The appendix is unremarkable. It shows no evidence of inflammation. No appendicolith is seen. The small bowel is unremarkable. There is no evidence of dilatation to suggest obstruction. No evidence of adynamic ileus is seen. There is no small bowel wall thickening to suggest enteritis. The colon is unremarkable. The urinary bladder is unremarkable. There is no wall thickening to suggest tumor or inflammation. There are no intraluminal calculi. There are no diverticula. There is no evidence of chronic bladder outlet obstruction. There is no evidence of urinary bladder distention to suggest urinary retention. The other pelvic structures are unremarkable. The bony and vascular structures are unremarkable for the patient's age. IMPRESSION: Hiatal hernia and esophageal reflux. Fatty liver. This study was performed using dose reduction techniques to include automated exposure control and/or adjustment of the mA and/or kV according to patient size. DICTATED BY: BETITO MENEZES MD DATE: 10/10/24824 ASSESSMENT: Hepatomegaly, Hepatic Steatosis, POA Transaminitis, consistent with chronic alcohol abuse POA, improving Alcohol abuse, POA, 20 years plus patient report Acute Alcohol withdrawal Hypokalemia, POA Hypophosphatemia, POA Normochromic anemia, POA Hypoalbuminemia, POA Hypertriglyceridemia, POA PLAN: Labs, diagnostic, radiologic exams reviewed and interpreted by myself and supervising physician. We have reviewed external records in detail Require close monitoring of renal function and electrolytes Order CBC, CMP, and electrolytes in am BiPAP as necessary, for respiratory distress Monitor blood pressure adjust medication doses as needed Avoid hypotensive episodes May use Dilaudid 0.5 mg IV every 6 hours as needed for severe pain Monitor blood sugars Strict intake, output, and daily weight should be monitored Please renally adjust medications Avoid nephrotoxic and nonsteroidal drugs Avoid contrast if possible Will continue to monitor renal function, anemia, electrolytes Treatment plan discussed with patient Questions were answered We have discussed with the other team physicians in detail about the care plan We will continue to monitor the patient closely ATTESTATION BY PHYSICIAN I have seen and examined the patient. I reviewed the documentation, medical decision making, and treatment plan as noted by the mid-level provider above. I agree with the findings and plan of care. ASHLEY JENKINS MD, [facility] Oct 13, 2024 14:17
--- NOTE | 2024-10-13 15:25 | DS ---
Discharge Summary Hospital Course Summary: 49-year-old male that was seen and examined on 10/10/2024. Patient is a good historian of personal health. Patient states he came to the emergency department with a chief complaint of nausea, vomiting. Onset was 10/09/2024 at 10:00 a.m.. Location is to abdomen. Duration is on and off. Character is erika cribed as watery. Symptoms are aggravated with quitting alcohol use. There was no alleviating factors. Patient denies any associated chest pain or shortness and breath. He was admitted with dehydration and alcohol withdrawal. He was started on CIWA protocol, Banana Bag x 3 days and PRN medication for nausea. After 48 hours he was no longer requiring librium and was asymptomatic. Unfortunately he is unfunded and cannot transfer to an inpatient rehab facility from the hospital. He has been encouraged to voluntarily admit himself to an alcohol rehab program, nursing instructed to provide him with local alcohol rehab programs. His PCP should also refer him to local resources such as counselors, alcoholics anonymous etc. . Procedure(s): Exam Type: CHEST 1VW Clinical Information: weakness Comparison: None Findings: The lungs are clear of infiltrates. The heart is normal in size. The bony and soft tissue structures of the chest are unremarkable. Impression: Clear lungs. Exam Type: CT ABDOMEN/PELVIS W/O CONTRAST Clinical Information: vomiting, abdominal distention, hx alcohol abuse, pancreatitis Comparison: None CT Dose Index (CTDI): 10.20 mGy Dose Length Product (DLP): 530.00 total mGy-cm PROTOCOL: Routine noncontrast helical scanning of the abdomen and pelvis was performed at 5mm collimation. Findings: No evidence of nephro or ureterolithiasis is found. No hydronephrosis or ureteral dilatation is seen. The lung bases are clear. There is distention of the distal esophagus consistent with gastroesophageal reflux and there is a small hiatal hernia. The spleen is unremarkable. It is not enlarged. The pancreas shows normal anatomy. It is not fatty replaced. It shows no lesions. The pancreatic duct is not dilated. The gallbladder is unremarkable. It shows no cholelithiasis. The gallbladder wall is normal in thickness. There is no pericholecystic fluid. The is no acute or chronic inflammation noted. The adrenal glands are unremarkable. There is no enlargement. No lesions are noted. The liver shows diffuse fatty infiltration. It shows no focal lesions. The liver is enlarged. The appendix is unremarkable. It shows no evidence of inflammation. No appendicolith is seen. The small bowel is unremarkable. There is no evidence of dilatation to suggest obstruction. No evidence of adynamic ileus is seen. There is no small bowel wall thickening to suggest enteritis. The colon is unremarkable. The urinary bladder is unremarkable. There is no wall thickening to suggest tumor or inflammation. There are no intraluminal calculi. There are no diverticula. There is no evidence of chronic bladder outlet obstruction. There is no evidence of urinary bladder distention to suggest urinary retention. The other pelvic structures are unremarkable. The bony and vascular structures are unremarkable for the patient's age. IMPRESSION: Hiatal hernia and esophageal reflux. Fatty liver. Assessment/Plan: Hepatomegaly, Hepatic Steatosis, POA Transaminitis, consistent with chronic alcohol abuse POA, improving Alcohol abuse, POA, 20 years plus patient report Acute Alcohol withdrawal Hypokalemia, POA Hyophosphatemia, POA Normochromic anemia, POA Hypoalbuminemia, POA Hypertriglyceridemia, POA Discharge Instructions: Follow up with PCP in 3-7 days, please refer patient to substance abuse programs and counseling Would recommend voluntarily admission to alcohol rehab facility. Home Medications: Active Scripts Pantoprazole Sodium (Protonix) 40 Mg Tablet.dr, 40 MG PO DAILY, #30 TAB 0 Refills Prov:LANEY WEBSTER 02/06/23 Ondansetron HCl (Ondansetron HCl) 4 Mg Tablet, 4 MG PO Q6HPRN PRN for NAUSEA/VOMITING, #20 TAB 0 Refills Prov:LANEY WEBSTER 12/09/22 Triamcinolone Acetonide (Kenalog/Aristocort) 3 Appl/Tube Cream.gm., 0 APPL TP BID, #1 TUB 0 Refills Apply to affected site twice a day Prov:LANEY WEBSTER 12/09/22 Reported Medications Trazodone HCl (Trazodone HCl) 150 Mg Tablet, 150 MG PO HS, TAB 08/03/24 Continued Medications: Ondansetron HCl (Ondansetron HCl) 4 Mg Tablet 4 MG PO Q6HPRN PRN for NAUSEA/VOMITING, #20 TAB 0 Refills Pantoprazole Sodium (Protonix) 40 Mg Tablet.dr 40 MG PO DAILY, #30 TAB 0 Refills Trazodone HCl (Trazodone HCl) 150 Mg Tablet 150 MG PO HS, TAB Triamcinolone Acetonide (Kenalog/Aristocort) 3 Appl/Tube Cream.gm. 0 APPL TP BID, #1 TUB 0 Refills Apply to affected site twice a day Time spent arranging discharge: 31-60 minutes ROD HO MD Oct 13, 2024 15:25
--- NOTE | 2024-10-13 18:20 | NUR ---
PATIENT DISCHARGED HOME ID BAND AND IV REMOVED. DISCHARGE INSTRUCTIONS EXPLAINED AND GIVEN TO PATIENT. PATIENT VERBALIZED UNDERSTANDING. BELONGINGS PACKED AND TAKEN BY PATIENT. WHEELED DOWN TO PRIVATE CAR.
== END 2024-10-13 18:35 | disposition home or self-care (01) | DRG 683 ==
LOC: EDH 00:01 → EDHIP 00:02 → 3AH 05:45
PROVIDERS: ADMIT Internal Medicine; ATTEND Internal Medicine
DX: N17.9 Acute kidney failure, unspecified (principal); E87.20 Acidosis, unspecified; F10.239 Alcohol dependence with withdrawal, unspecified; E86.0 Dehydration; D64.9 Anemia, unspecified; E11.9 Type 2 diabetes mellitus without complications; E78.1 Pure hyperglyceridemia; E83.39 Other disorders of phosphorus metabolism; E87.6 Hypokalemia; E88.09 Other disorders of plasma-protein metabolism, not elsewhere classified; I10 Essential (primary) hypertension; K21.9 Gastro-esophageal reflux disease without esophagitis; K76.0 Fatty (change of) liver, not elsewhere classified; F41.9 Anxiety disorder, unspecified; Z79.899 Other long term (current) drug therapy
CPT/HCPCS: 36415; 36600; 71045; 74176; 80048; 80053; 80076; 80305; 81001; 82010; 82570; 82803; 83540; 83550; 83605; 83690; 83735; 83880; 83935; 84100; 84145; 84300; 84478; 85025; 85027; 87040; G0378; J0780; J1644; J1756; J2405; J2470; J2543; J3360; J3411; J3480; J3490; J7030; J7050; J7070; J7120

== ENCOUNTER 2024-10-27 10:08 | Inpatient (IN) | payer SELFPAY ==
[2024-10-27] VITALS (24 sets, daily range): BP systolic 87–114; BP diastolic 35–79; PULSE 76–105; RESP 10–19; TEMP 98–98.6; O2SAT 98–99
[~2024-10-27] VITALS: Ht 167.6 cm; Wt 74.0 kg
--- NOTE | 2024-10-27 10:28 | ERN ---
ED Note History of Present Illness Stated Complaint: ALCOHOL WITHDRAWLS Chief Complaint: Nausea,Vomiting,Diarrhea Time Seen by MD: 10:16 Dictation: PATIENT IS A 49-YEAR-OLD ALCOHOLIC MALE COMING IN TODAY WITH COMPLAINTS OF NAUSEA VOMITING ONSET WAS YESTERDAY. HE STATES HE STOPPED DRINKING FOR A LONG TIME THEN STARTED DRINKING TWO MONTHS AGO AND DRINKS 6-7 SHOTS OF VODKA DAILY. HIS LAST ALCOHOL INTAKE WAS YESTERDAY. HE STATES HE HAS BEEN FEELING VERY SHAKY, CURRENTLY HAS A HEART RATE IN THE 140S IN TRIAGE. DENIES SUICIDAL OR HOMICIDAL IDEATION. Allergies: Coded Allergies: No Known Allergies (Unverified Allergy, Unknown, 04/26/21) Home Meds Active Scripts Ondansetron HCl (Ondansetron HCl) 4 Mg Tablet, 4 MG PO Q6HPRN PRN for NAUSEA/VOMITING, #20 TAB 0 Refills Prov:LANEY WEBSTERRHONDA 12/09/22 Reported Medications Escitalopram Oxalate (Lexapro) 20 Mg Tablet, 1 TAB PO DAILY for 30 Days, #30 TAB 0 Refills 10/27/24 Trazodone HCl (Trazodone HCl) 150 Mg Tablet, 150 MG PO HS, TAB 08/03/24 Discontinued Scripts Pantoprazole Sodium (Protonix) 40 Mg Tablet.dr, 40 MG PO DAILY, #30 TAB 0 Refills Prov:LANEY WEBSTERRHONDA 02/06/23 Triamcinolone Acetonide (Kenalog/Aristocort) 3 Appl/Tube Cream.gm., 0 APPL TP BID, #1 TUB 0 Refills Apply to affected site twice a day Prov:LANEY WEBSTERRHONDA 12/09/22 Past Medical History Past Medical History: No Pertinent History Additional Past Medical Hx: PACREATITIS Surgical History: Appendectomy Family History: Negative Social History: ETOH, Lives with family RN Note Reviewed/Agreed w/PFSH: Yes Review of System Dictation CONSTITUTIONAL: NEGATIVE EXCEPT FOR HPI HEAD/FACE: NEGATIVE EXCEPT FOR HPI EENT: NEGATIVE EXCEPT FOR HPI RESPIRATORY: NEGATIVE EXCEPT FOR HPI GASTROINTESTINAL/ABDOMINAL: NEGATIVE EXCEPT FOR HPI NAUSEA VOMITING AND DIARRHEA GENITOURINARY: NEGATIVE EXCEPT FOR HPI MUSCULOSKELETAL: NEGATIVE EXCEPT FOR HPI INTEGUMENTARY: NEGATIVE EXCEPT FOR HPI NEUROLOGICAL/PSYCH: NEGATIVE EXCEPT FOR HPI GENERALIZED SHAKES HEMATOLOGIC/LYMPHATIC: NEGATIVE EXCEPT FOR HPI ALL SYSTEMS NEGATIVE, EXCEPT NOTED ABOVE. 13 POINT REVIEW OF SYSTEMS ASSESSED AND ALL NEGATIVE EXCEPT FOR ABOVE. Initial Vital Sign VS Vital Signs Date Time Temp Pulse Resp B/P (MAP) Pulse Ox O2 Delivery O2 Flow Rate FiO2 10/27/24 10:10 98.4 142 23 128/92 99 Room Air* 0 21 Physical Exam Dictation VITAL SIGNS REVIEWED GENERAL APPEARANCE: ALERT, ORIENTED X 3, MODERATE ACUTE DISTRESS, WELL DEVELOPED, NOURISHED. HEAD AND FACE: NON-TRAUMATIC. EYES: PERRL, PINK CONJUNCTIVAS, EYELID NO TRAUMA, ANTERIOR CHAMBER WITH ARCUS SENILIS. EARS: PINNAS INTACT AND NO SIGNS OF TRAUMA OR ERYTHEMA EAR CANALS CLEAR AND NO DISCHARGE TM NO ERYTHEMA NOSE: NO DISCHARGE, NO BLEEDING. OROPHARYNX: MOUTH NORMAL, TONGUE PINK, PHARYNX CLEAR,NO ERYTHEMA, TONSILS NO EXUDATES, NO ABSCESSES NOTED, MUCOUS MEMBRANE MOIST NECK: SUPPLE, NON-TENDER, NO THYROMEGALY, NO MASSES, NO JVD, NO BRUITS BREAST:DEFERRED CHEST:NO TENDERNESS, NO CREPITUS, NO PARADOXICAL MOVEMENT, NO RETRACTIONS LUNGS:CLEAR, WELL-VENTILATED, SYMMETRIC, NO RALES, NO WHEEZING, NO RHONCHI, NO STRIDOR, GOOD BREATH SOUNDS BILATERALLY HEART: TACHYCARDIC, NO MURMUR, NO GALLOPS VASCULAR: NO PERIPHERAL EDEMA, ABDOMEN: SOFT, POSITIVE BOWEL SOUNDS, NONDISTENDED, NO GUARDING, NONTENDER, NO REBOUND, NO MASSES NO HEPATOMEGALY, NO SPLENOMEGALY, NO PRICE'S SIGN, NO HERNIAS. RECTAL: DEFERRED GENITAL: DEFERRED NEUROLOGICAL: NORMAL SPEECH, MOTOR FUNCTION INTACT, SENSORY FUNCTION INTACT MUSCULOSKELETAL: NECK NONTENDER, FULL RANGE OF MOTION, BACK NONTENDER, FULL RANGE OF MOTION, EXTREMITIES: NONTENDER, FULL RANGE OF MOTION SKIN: COLOR PINK, DRY, NO TURGOR, NO RASH, NO LACERATIONS, NO ABRASIONS, NO CONTUSIONS. LYMPHATIC: DEFERRED Results (Laboratory/Radiology) Laboratory/Radiology Laboratory Tests Test 10/27/24 11:20 10/27/24 15:24 White Blood Count 9.0 K/uL (4.8-10.8) Red Blood Count 4.44 MIL/uL (4.50-6.20) L Hemoglobin 10.6 g/dL (14.0-18.0) L Hematocrit 36.6 % (42-54) L Mean Corpuscular Volume 82.4 fL (79-99) Mean Corpuscular Hemoglobin 23.9 pg (27.0-33.0) L Mean Corpuscular Hemoglobin Concent 29.0 g/dL (32.0-36.0) L Red Cell Distribution Width 20.9 % (11.0-15.5) H Platelet Count 724 K/uL (130-400) H Mean Platelet Volume 10.0 fL (7.5-10.5) Immature Granulocyte % (Auto) 0.3 % (0-1) Neutrophils (%) (Auto) 80.9 % (40.0-77.0) H Lymphocytes (%) (Auto) 12.1 % (21.0-51.0) L Monocytes (%) (Auto) 5.2 % (3.0-13.0) Eosinophils (%) (Auto) 0.0 % (0.0-8.0) Basophils (%) (Auto) 1.5 % (0.0-5.0) Neutrophils # (Auto) 7.3 K/uL (1.8-7.7) Lymphocytes # (Auto) 1.1 K/uL (1.0-4.8) Monocytes # (Auto) 0.5 K/uL (0.1-1.0) Eosinophils # (Auto) 0.00 K/uL (0.00-0.70) Basophils # (Auto) 0.13 K/uL (0.00-0.20) Absolute Immature Granulocyte (auto 0.03 K/uL (0-1) Nucleated Red Blood Cells 0.0 % (0.0-0.19) Platelet Morphology Comment INCREASED Red Blood Cell Morphology See comments Urine Color LIGHT-YELLOW (YELLOW) Urine Appearance CLEAR (CLEAR) Urine pH 5.0 (5.0-8.0) Urine Specific [place] 1.023 (1.001-1.031) Urine Protein 20 mg/dL (NEGATIVE) H Urine Glucose (UA) NEGATIVE mg/dL (NEGATIVE) Urine Ketones 5 mg/dL (NEGATIVE) H Urine Occult Blood NEGATIVE (NEGATIVE) Urine Nitrate NEGATIVE (NEGATIVE) Urine Bilirubin NEGATIVE mg/dL (NEGATIVE) Urine Urobilinogen 0.2 mg/dL (0.2-1.0) Urine Leukocyte Esterase NEGATIVE Riaz/uL Urine RBC 0-1 /HPF (0-1) Urine WBC 0-1 /HPF (0-1) Urine Amorphous Crystals (Auto) RARE /LPF (None Seen) Urine Bacteria None /HPF (None Seen) Sodium Level 140 mmol/L (136-145) Potassium Level 4.3 mmol/L (3.5-5.1) Chloride Level 103 mmol/L (101-111) Carbon Dioxide Level 15 mmol/L (21-32) L Blood Urea Nitrogen 15 mg/dL (7-18) Creatinine 1.3 mg/dL (0.5-1.3) Glomerular Filtration Rate Calc 68 mL/min (>90) Random Glucose 148 mg/dL (70-105) H Hemoglobin A1c 5.5 % (4.0-6.0) Estimated Average Glucose (eAG) 111 mg/dL (70-126) Total Calcium 8.7 mg/dL (8.5-10.1) Magnesium Level 2.00 mg/dL (1.80-2.40) Iron Level 49 mcg/dL (65-175) #L Total Iron Binding Capacity 545 mcg/dL (250-450) H Percent Iron Saturation 8.9 % (30-44) L Troponin I High Sensitivity 8 ng/L (4-75) Triglycerides Level 1270 mg/dL (30-200) H Cholesterol Level 93 mg/dL (<200) # LDL Cholesterol 27 mg/dL (0-99) HDL Cholesterol 34 mg/dL (29-71) Lipase 80 U/L (16-77) H Urine Opiates Screen NEGATIVE (NEGATIVE) Urine Barbiturates Screen NEGATIVE (NEGATIVE) Urine Phencyclidine Screen NEGATIVE (NEGATIVE) Urine Amphetamines Screen NEGATIVE (NEGATIVE) Urine Benzodiazepines Screen POSITIVE (NEGATIVE) H Urine Cocaine Screen NEGATIVE (NEGATIVE) Urine Marijuana (THC) Screen NEGATIVE (NEGATIVE) Serum Alcohol 98 mg/dL (0-10) H Whole Blood Ketones Quantitative 0.3 mmol/L (0.0-0.6) Labs Reviewed?: Yes EKG Comment: EKG SINUS TACHYCARDIA/HEART RATE 132/AXIS NORMAL/NO ECTOPY ED Course ED Course Orders Procedure Category Date Status Time Drug Screen Urine LAB 10/27/24 Complete 10:24 Cbc With Differential LAB 10/27/24 Complete 10:24 Troponin I High LAB 10/27/24 Complete Sensitivity 10:24 Urinalysis Profile LAB 10/27/24 Complete 10:24 12 Lead Ekg Tracing- EKG 10/27/24 Complete Technical 10:24 0.9%Nacl 1000ml (Ns PHA 10/27/24 Complete 1000ml) 10:30 Ondansetron 4mg Inj PHA 10/27/24 Complete (Zofran 4mg Inj) 10:30 Lipase LAB 10/27/24 Complete 10:24 Basic Metabolic Panel LAB 10/27/24 Complete 10:24 Magnesium LAB 10/27/24 Complete 10:24 Lorazepam 2 Mg PHA 10/27/24 Complete (Ativan) 10:30 Alcohol, Blood LAB 10/27/24 Complete 10:26 Etoh Alcohol RUTHY 10/27/24 In Process Withdrawal Ords 10:38 Pharmacy PHA 10/27/24 Complete Communication 11:30 Diazepam 5 Mg/Ml 2 Ml PHA 10/27/24 Complete Syg (Valium 5 Mg/M 12:00 Edm Admit Bridge Order ADM 10/27/24 Transmitted 13:11 Diazepam 5 Mg/Ml 2 Ml PHA 10/27/24 Complete Syg (Valium 5 Mg/M 13:30 Vital Signs(Adult CPOE 10/27/24 Transmitted Hospitalist) 14:27 Oxygen By Nc/Pulse Ox CPOE 10/27/24 Transmitted 14:27 Famotidine 20mg Tab PHA 10/27/24 Complete (Pepcid 20mg Tab) 21:00 Acetaminophen 325 Tab PHA 10/27/24 In Process (Tylenol 325mg Tab 14:30 Ondansetron 4mg Inj PHA 10/27/24 In Process (Zofran 4mg Inj) 14:30 Npo Except For Meds CPOE 10/27/24 Transmitted 14:27 Nurse To Enter Home CPOE 10/27/24 Transmitted Medication 14:27 Admit Orders ADM 10/27/24 Transmitted 14:27 Telemetry Monitoring CPOE 10/27/24 Transmitted 14:27 Nothing By Mouth DIET 10/27/24 Transmitted Dinner Apply Scds CPOE 10/27/24 Transmitted 14:27 Hydralazine 20mg Inj PHA 10/27/24 In Process (Apresoline 20mg In 14:30 Comprehensive LAB 10/28/24 Verified Metabolic Panel 04:00 Cbc Without LAB 10/28/24 Verified Differential 04:00 Magnesium LAB 10/28/24 Verified 04:00 Iron Panel With %Sat LAB 10/27/24 Complete 14:34 Occult Blood Stool LAB 10/27/24 Logged Single Only 14:34 Pantoprazole 40mg Inj PHA 10/27/24 In Process (Protonix 40mg Inj 15:00 Hydromorphone 0.5mg PHA 10/27/24 In Process Syg (Dilaudid 0.5mg 14:30 Magnesium LAB 10/27/24 Complete 14:35 Initiate Po RUTHY 10/27/24 In Process Hypokalemia Protoc 14:36 Potassium Chloride PHA 10/27/24 In Process 20meq/100ml ([place] 15:00 Potassium Chl 10% PHA 10/27/24 In Process Elixir 20meq (Kcl 10% 15:00 Potassium Chloride PHA 10/27/24 In Process 20meq Er (K-Dur/Klor- 15:00 Notify Physician If CPOE 10/27/24 Transmitted There Is 14:36 Notify Md On The Next CPOE 10/27/24 Transmitted 14:36 Notify Md On The CPOE 10/27/24 Transmitted Next(Cont.) 14:36 Magnesium 2gm Premix PHA 10/27/24 In Process 50ml (Magnesium 2gm 15:00 Initiate Hypoglycemia RUTHY 10/27/24 In Process Protocol 14:36 Dextrose 50%-Water PHA 10/27/24 In Process (D50w) 15:00 Glucagon 1mg Kit PHA 10/27/24 In Process (Glucagon 1mg Kit) 15:00 Etoh Alcohol RUTHY 10/27/24 In Process Withdrawal Ords 14:42 Chlordiazepoxide Hcl PHA 10/27/24 In Process 25 Mg Cap (Librium 15:00 Lorazepam 2 Mg PHA 10/27/24 In Process (Ativan) 15:00 Thiamine Hcl (Vitamin PHA 10/27/24 In Process B-1)... 15:00 Pharmacy PHA 10/27/24 In Process Communication 15:00 Use The Ciwa-Ar CPOE 10/27/24 Transmitted Assmt. Tool 14:42 Assess The Need For CPOE 10/27/24 Transmitted Seizure & 14:42 Vs Per Unit Routine & CPOE 10/27/24 Transmitted With 14:42 Document Etoh CPOE 10/27/24 Transmitted Withdrawal Score 14:42 Critcal Care Consult CONPHYSVC 10/27/24 Transmitted 14:42 Dexmedetomidine PHA 10/27/24 Complete 200mcg/Ns 50ml 15:00 Ct Abdomen/Pelvis W/O CT 10/27/24 Resulted Contrast 14:45 Us Abdominal Complete US 10/27/24 Resulted 14:45 Amylase LAB 10/28/24 Verified 04:00 Lipase LAB 10/28/24 Verified 04:00 Lipid Panel LAB 10/27/24 Complete 14:45 Hemoglobin A1c LAB 10/27/24 Complete 14:45 Initiate RUTHY 10/27/24 In Process Hyperglycemia Protoco 14:48 Dextrose 50%-Water PHA 10/27/24 Complete (D50w) 15:00 Glucagon 1mg Kit PHA 10/27/24 Complete (Glucagon 1mg Kit) 15:00 Diazepam 5 Mg/Ml 2 Ml PHA 10/27/24 In Process Syg (Valium 5 Mg/M 15:30 Lactated Ringers PHA 10/27/24 Complete 1000ml (Lactated 15:30 Ketone Blood LAB 10/27/24 Complete Quantitative 15:07 Dexmedetomidine PHA 10/27/24 In Process 400mcg/Lm750zo 18:30 Vital Signs Date Time Temp Pulse Resp B/P (MAP) Pulse Ox O2 Delivery O2 Flow Rate FiO2 10/27/24 17:48 98.1 121 19 111/75 99 Room Air* 0 10/27/24 16:21 97.9 127 22 123/68 98 Room Air* 0 10/27/24 12:10 98.4 124 18 141/93 99 Room Air* 0 10/27/24 11:10 98.8 134 20 152/89 99 Room Air* 0 10/27/24 10:14 97.7 146 18 145/105 98 Room Air 10/27/24 10:10 98.4 142 23 128/92 99 Room Air* 0 21 1302/PATIENT REMAINS HEMODYNAMICALLY STABLE, HEART RATE 120S 130S. WAS GIVEN VALIUM 10 MG IV PUSH ADDITIONALLY HE IS LEGALLY INTOXICATED WITH ALCOHOL LEVEL 0.98. NO SUICIDAL OR HOMICIDAL IDEATION PATIENT WILL BE PUT IN FOR ACUTE AL COHOL WITHDRAWAL. 1308/SPOKE WITH DR. WINTERS REVIEWED LABS AND HE AGREED TO ADMIT PATIENT. Medical Decision Making MDM MDM: DIFFERENTIAL DIAGNOSIS: ALCOHOL ABUSE/ALCOHOL WITHDRAWAL/HYPOMAGNESEMIA/ELECTROLYTE IMBALANCE/DEHYDRATION/POLYDRUG ABUSE/DEPRESSION RATIONALE: TESTS CONSIDERED AND ORDERED SECONDARY TO SHARED DECISION MAKING INCLUDE: LABS, ECG PREVIOUS OUTSIDE RECORDS REVIEWED: OLD ER VISITS. RISK OF COMPLICATION AND/OR MORBIDITY OR MORTALITY OF PATIENT MANAGEMENT: MODERATE MEDICATIONS-PER MEDICATION RECONCILIATION NEED FOR HOSPITALIZATION: PATIENT DOES MEET CRITERIA FOR HOSPITALIZATION. PATIENT WILL NEED ADMISSION FOR ACUTE ALCOHOL WITHDRAWAL AND MONITORING FOR DTS NEED FOR EMERGENCY MAJOR/MINOR SURGERY: NO THERE ARE NO SOCIAL CONCERNS WITH THIS PATIENT. DAILY ALCOHOL ABUSE, REMAINS INTOXICATED PRESCRIPTION DRUG MANAGEMENT PRESCRIPTIONS WILL INCLUDE SYMPTOMATIC CARE PATIENT'S PRIOR EXTERNAL MEDICAL RECORDS FROM OTHER ER VISITS WERE REVIEWED BY ME INDICATED. PRIOR TESTING AND RESULTS FROM PREVIOUS VISITS WERE REVIEWED. PRIOR TESTS WERE TAKEN INTO ACCOUNT WITH MEDICAL DECISION MAKING AND RESOURCE UTILIZATION, INDEPENDENT HISTORIAN/HISTORIANS WERE USED TO OBTAIN COMPLETE MEDICAL HISTORY. I INDEPENDENTLY INTERPRETED THE TEST THAT WERE PERFORMED, RESULTS WERE REVIEWED BY ME AND CONSIDERED FINDINGS ON RADIOLOGY IF ORDERED. MEDICAL MANAGEMENT AND EXAMINATION INTERPRETATION DISCUSSIONS WERE HAD BY ME WITH OTHER QUALIFIED HEALTHCARE PROFESSIONALS INDICATED FOR THE PATIENT'S CARE. DX & DISP Disposition: Inpatient Decision to Admit Time: 13:05 Departure Impression: Primary Impression: Acute hyperactive alcohol withdrawal delirium Additional Impressions: Alcohol intoxication, Chronic anemia, Dehydration, Uncontrolled diabetes mellitus, Nausea & vomiting Condition: Stable Referrals: SELF,REFERRAL (PCP) Time of Disposition: 13:05 I have reviewed the case, and I agree with, Diagnosis and Plan I performed the substantive portion of the visit. I have reviewed and personally made and approve the management plan that is documented in the notes by myself or the LISANDRO. I acknowledge full responsibility for the patient's management plan. LAKESHIA PHILLIPS NP Oct 27, 2024 10:28 JEAN COHEN MD Oct 27, 2024 19:03
[2024-10-27] MEDS: ondanSETRON 4MG INJ IVP ONE (11:23)
[2024-10-27] MEDS: 0.9%NACL 1000ML 1,000 ML IV ONE (11:24)
[2024-10-27] MEDS ORDERED: PHARMACY COMMUNICATION MISC SCH (11:30)
[2024-10-27] MEDS: diazePAM 5 MG/ML 2 ML SYG IVP ONE (11:37)
[2024-10-27] MEDS: LORazepam 2 MG/ML 1 ML VIAL IVP ONE (11:37)
[2024-10-27 11:40] LABS: BASOPHILS # (AUTO) 0.13 K/uL (0.00-0.20); BASOPHILS % (AUTO) 1.5 % (0.0-5.0); HEMATOCRIT 36.6 % (42-54); IMMATURE GRANULOCYTE ABSOLUTE 0.03 K/uL (0-1); LYMPHOCYTES # (AUTO) 1.1 K/uL (1.0-4.8); LYMPHOCYTES % (AUTO) 12.1 % (21.0-51.0); MEAN CORPUSCULAR HEMOGLOBIN 23.9 pg (27.0-33.0); MEAN CORPUSCULAR VOLUME 82.4 fL (79-99); MONOCYTES # (AUTO) 0.5 K/uL (0.1-1.0); MONOCYTES % (AUTO) 5.2 % (3.0-13.0); NEUTROPHILS # (AUTO) 7.3 K/uL (1.8-7.7); NEUTROPHILS % (AUTO) 80.9 % (40.0-77.0); RED BLOOD CELL COUNT(AUTO) 4.44 MIL/uL (4.50-6.20); RED CELL DISTRIBUTION WIDTH 20.9 % (11.0-15.5)
[2024-10-27 11:41] LABS: APPEARANCE,URINE CLEAR (CLEAR); BILIRUBIN,URINE NEGATIVE (NEGATIVE); COLOR,URINE LIGHT-YELLOW (YELLOW); GLUCOSE, URINE (UA) NEGATIVE (NEGATIVE); KETONES,URINE 5 mg/dL (NEGATIVE); LEUKOCYTE ESTERASE ,URINE NEGATIVE Leu/uL (NEGATIVE); NITRATE,URINE NEGATIVE (NEGATIVE); OCCULT BLOOD,URINE NEGATIVE (NEGATIVE); PROTEIN,URINE 20 mg/dL (NEGATIVE); UROBILINOGEN,URINE 0.2 mg/dL (0.2-1.0)
[2024-10-27 11:44] LABS: CREATININE 1.3 mg/dL (0.5-1.3); MAGNESIUM 2.1 mg/dL (1.80-2.40); POTASSIUM 4.3 mmol/L (3.5-5.1)
[2024-10-27 11:47] LABS: ADD UA MICROSCOPIC YES
[2024-10-27 11:49] LABS: AMPHET/METH SCREEN,URINE NEGATIVE (NEGATIVE); BARBITURATE SCREEN, URINE NEGATIVE (NEGATIVE); BENZODIAZEPINES SCREEN,URINE POSITIVE (NEGATIVE); CANNABINOID SCREEN,URINE NEGATIVE (NEGATIVE); COCAINE SCREEN,URINE NEGATIVE (NEGATIVE); OPIATE SCREEN,URINE NEGATIVE (NEGATIVE); PHENCYCLIDINE SCREEN,URINE NEGATIVE (NEGATIVE)
[2024-10-27 12:06] LABS: MUCUS,URINE RARE LPF (None Seen)
[2024-10-27 12:07] LABS: RBC,URINE 0-1 /HPF (0-1); WBC,URINE 0-1 /HPF (0-1)
[2024-10-27 12:18] LABS: PLATELET COUNT (AUTO) 724 K/uL (130-400)
[2024-10-27 12:20] LABS: PLATELET MORPHOLOGY COMMENT INCREASED
--- NOTE | 2024-10-27 12:34 | NUR ---
PATIENT IS STILL TACHYCARDIC IN THE 140S- 150S, LET LAKESHIA PHILLIPS THERMAL SURFACING MACHINE OPERATOR KNOW , STATED TO LET NS FLUIDS BOLUS FINISH AND MONITOR, PATIENT RESTING IN BED, CALL LIGHT IN REACH
[2024-10-27] MEDS: diazePAM 5 MG/ML 2 ML SYG IV ONE (13:34)
--- NOTE | 2024-10-27 14:29 | NUR ---
PER DR. WINTERS VIA TELEPHONE , ADMIT PATIENT TO ICU, ADMINISTER PRECEDEX, CRITICAL CARE CONSULT, BANANA BAG @ 50ML/HR, UA DRUG SCREEN
[2024-10-27] MEDS ORDERED: hydroMORPHone 0.5 MG SYG (0.5MG/0.5ML) IV PRN (14:30)
[2024-10-27] MEDS ORDERED: hydrALAZine 20MG/ML VIAL IV PRN (14:30)
[2024-10-27] MEDS ORDERED: acetaMINOPHEN 325 MG TAB PO PRN (14:30)
[2024-10-27] MEDS ORDERED: ondanSETRON 4MG INJ IV PRN (14:30)
--- NOTE | 2024-10-27 14:45 | HP ---
[facility] HISTORY AND PHYSICAL Date of Service: Oct 27, 2024 Time of Service: 14:36 HISTORY OF PRESENT ILLNESS: The patient is a very pleasant 49-year-old male, past medical history of alcohol abuse, as well as acute pancreatitis, presented to the emergency room at [facility] 10/27/2024 with the chief complaint of nausea and vomiting since yesterday. According to the patient, he drinks 6-7 alcoholic drinks to include shots of vodka on a daily basis. He quit drinking heavily for month ago, however started to drink again few days ago, earlier this morning he started feeling very anxious and shaky, reason for which he decided to present to the emergency room. Last alcohol drink was yesterday. In the emergency room, the patient looks extremely anxious, very tachycardic, heart rate in the range of 140. He has received total of 15 mg IV of diazepam. Currently lorazepam is in back ordered. No improvement noted. At the time of my visit the patient is alert oriented x3, extremely anxious, shivering, having palpitations, heart rate noted to be in the range of 135-140, with systolic blood pressure as high as 152/89. He is afebrile and saturating normal on room air. CBC done shows hemoglobin of 10.6, hematocrit 36.6 with a platelet count of 724. A carbon dioxide of 15. Lipase level of 80. Toxicology screen positive for benzodiazepine. Alcohol level of 80. In view of extreme tachycardia with severe alcohol withdrawal symptoms, decision made to admit the patient to the intensive care unit to start the patient on Precedex drip and for close monitoring. REVIEW OF SYSTEMS CONSTITUTIONAL: Denies fevers, chills, or night sweats. No unintentional weight loss reported. NEUROLOGICAL: Denies headache, amaurosis fugax, motor weakness, sensory deficit, vertigo/spinning sensation, gait abnormalities, or tremors. ENT: No hearing loss, otalgia, otorrhea, rhinitis, rhinorrhea, hoarseness, or sore throat. CARDIOVASCULAR: Denies any exertional angina, dyspnea on exertion, orthopnea, paroxysmal nocturnal dyspnea, palpitations, life-threatening arrhythmias, claudication. PULMONARY: Denies any shortness of breath, cough, phlegm/sputum, hemoptysis, pleuritic chest pain. SLEEP: Denies morning headaches, daytime somnolence or napping. Denies difficulty falling asleep, staying asleep, waking from sleep. Denies knowledge of snoring. GASTROINTESTINAL: Denies any type of dysphagia to either liquids or solids. Denies nausea, vomiting, pyrosis, early satiety, abdominal pain, diarrhea, constipation, or changes in stool consistency or caliber. Denies coffee-ground emesis, hematemesis, hematochezia, or melanotic stools. GENITOURINARY: Denies frequency, urgency, nocturia, hematuria or incontinence (Storage/Irritative symptoms.) Low urinary stream, straining to void, urinary intermittency or hesitancy, splitting of the voiding stream, terminal dribbling. ENDOCRINOLOGIC: Denies polyuria, polydipsia, polyphagia or heat/cold intolerances. HEMATOLOGIC: Denies thrombophilia/previous clots, or coagulopathy/bleeding disorders. ONCOLOGIC: Denies personal history of malignancy. DERMATOLOGIC: Denies rashes or pruritus. PSYCHIATRIC: Denies any suicidal or homicidal ideation. Denies hallucinations. PAST MEDICAL HISTORY: [ History of pancreatitis in the past] PAST SURGICAL HISTORY: [ Appendectomy ] PAST SOCIAL HISTORY: [ Last alcohol drink was yesterday] FAMILY HISTORY: [ Noncontributory ] Coded Allergies: No Known Allergies (Unverified Allergy, Unknown, 04/26/21) PHYSICAL EXAM GENERAL APPEARANCE: The patient is awake, alert, and oriented, in no acute cardiopulmonary distress. NEUROLOGICAL: Cranial nerves II-XII grossly intact. Motor is 5/5 in bilateral upper and lower extremities proximal to distal. No sensory deficits. HEENT: Face is symmetric. Pupils are equal and reactive. Extraocular movements are intact. NECK: Supple. No JVD. No thyromegaly. No submental, submandibular, pre-/pos tauricular, occipital or supraclavicular lymphadenopathy. CHEST: Normal chest expansion. No Telemetry. LUNGS: Absence of any rales, rhonchi or any wheezing. CARDIOVASCULAR: Regular. S1 and S2 normal. No appreciable rubs, murmurs or gallops. ABDOMEN: Soft, nontender, and nondistended. There is no rebound, voluntary guarding, or rigidity. : Deferred. No [place]. EXTREMITIES: Non-edematous and not cyanotic. No clubbing. Good capillary refill. SKIN: No skin breakdown. Vital Sign (Last 24 Hours) 10/27/24 12:10 Temp 98.4 Pulse 124 Resp 18 B/P (MAP) 141/93 Pulse Ox 99 O2 Delivery Room Air* O2 Flow Rate 0 FiO2 21 LABS: Laboratory: Test 10/27/24 11:20 Range/Units White Blood Count 9.0 4.8-10.8 K/uL Red Blood Count 4.44 L 4.50-6.20 MIL/uL Hemoglobin 10.6 L 14.0-18.0 g/dL Hematocrit 36.6 L 42-54 % Mean Corpuscular Volume 82.4 79-99 fL Mean Corpuscular Hemoglobin 23.9 L 27.0-33.0 pg Mean Corpuscular Hemoglobin Concent 29.0 L 32.0-36.0 g/dL Red Cell Distribution Width 20.9 H 11.0-15.5 % Platelet Count 724 H 130-400 K/uL Mean Platelet Volume 10.0 7.5-10.5 fL Immature Granulocyte % (Auto) 0.3 0-1 % Neutrophils (%) (Auto) 80.9 H 40.0-77.0 % Lymphocytes (%) (Auto) 12.1 L 21.0-51.0 % Monocytes (%) (Auto) 5.2 3.0-13.0 % Eosinophils (%) (Auto) 0.0 0.0-8.0 % Basophils (%) (Auto) 1.5 0.0-5.0 % Neutrophils # (Auto) 7.3 1.8-7.7 K/uL Lymphocytes # (Auto) 1.1 1.0-4.8 K/uL Monocytes # (Auto) 0.5 0.1-1.0 K/uL Eosinophils # (Auto) 0.00 0.00-0.70 K/uL Basophils # (Auto) 0.13 0.00-0.20 K/uL Absolute Immature Granulocyte (auto 0.03 0-1 K/uL Nucleated Red Blood Cells 0.0 0.0-0.19 % Platelet Morphology Comment INCREASED Red Blood Cell Morphology See comments Urine Color LIGHT-YELLOW YELLOW Urine Appearance CLEAR CLEAR Urine pH 5.0 5.0-8.0 Urine Specific [place] 1.023 1.001-1.031 Urine Protein 20 H NEGATIVE mg/dL Urine Glucose (UA) NEGATIVE NEGATIVE mg/dL Urine Ketones 5 H NEGATIVE mg/dL Urine Occult Blood NEGATIVE NEGATIVE Urine Nitrate NEGATIVE NEGATIVE Urine Bilirubin NEGATIVE NEGATIVE mg/dL Urine Urobilinogen 0.2 0.2-1.0 mg/dL Urine Leukocyte Esterase NEGATIVE NEGATIVE Riaz/uL Urine RBC 0-1 0-1 /HPF Urine WBC 0-1 0-1 /HPF Urine Amorphous Crystals (Auto) RARE None Seen /LPF Urine Bacteria None None Seen /HPF Sodium Level 140 136-145 mmol/L Potassium Level 4.3 3.5-5.1 mmol/L Chloride Level 103 101-111 mmol/L Carbon Dioxide Level 15 L 21-32 mmol/L Blood Urea Nitrogen 15 7-18 mg/dL Creatinine 1.3 0.5-1.3 mg/dL Glomerular Filtration Rate Calc 68 >90 mL/min Random Glucose 148 H 70-105 mg/dL Total Calcium 8.7 8.5-10.1 mg/dL Magnesium Level 2.10 1.80-2.40 mg/dL Troponin I High Sensitivity 8 4-75 ng/L Lipase 80 H 16-77 U/L Urine Opiates Screen NEGATIVE NEGATIVE Urine Barbiturates Screen NEGATIVE NEGATIVE Urine Phencyclidine Screen NEGATIVE NEGATIVE Urine Amphetamines Screen NEGATIVE NEGATIVE Urine Benzodiazepines Screen POSITIVE H NEGATIVE Urine Cocaine Screen NEGATIVE NEGATIVE Urine Marijuana (THC) Screen NEGATIVE NEGATIVE Serum Alcohol 98 H 0-10 mg/dL Current Medications Medications (Trade) Dose Ordered Sig/Aleida Route PRN Reason Start Time Stop Time Status Last Admin Dose Admin Acetaminophen (TYLenol 325MG TAB) 650 mg Q6H PRN PO TEMPERATURE GREATER THAN 101.5 10/27/24 14:30 11/26/24 14:29 Famotidine (Pepcid 20mg Tab) 20 mg BID PO 10/27/24 21:00 10/27/24 21:00 Hydralazine HCl (APRESOLine 20MG INJ) 5 mg Q6H PRN IV For:SBP above 160;DBP above 90 10/27/24 14:30 11/26/24 14:29 Hydromorphone HCl (DiLAUDid 0.5MG INJ) 0.5 mg Q4H PRN IV SEVERE PAIN (7-10) 10/27/24 14:30 11/01/24 14:29 Ondansetron HCl (zoFRAN 4MG INJ) 4 mg Q6H PRN IV NAUSEA/VOMITING 10/27/24 14:30 11/26/24 14:29 Pharmacy Profile Note (Pharmacy Communication) 1 each ONCE MISC 10/27/24 11:30 10/27/24 11:33 DC DIAGNOSTICS / RADIOLOGY: [ ] ASSESSMENT: Severe acute alcohol withdrawal, POA History of alcohol abuse, POA Anemia, can not exclude acute GI bleed, POA Mild acute pancreatitis, POA Drug screen positive for benzodiazepine Possible acute metabolic acidosis, POA Hyperglycemia, POA PLAN: Patient to be admitted to the intensive care unit We will request critical care consultation We will start the patient on Precedex, wean as tolerated. Keep the patient NPO Start the patient on multivitamin IV Start the patient on Protonix 40 mg IV q.12 hours Follow CBC transfuse as needed, stool occult blood, if positive we will request GI consultation. Follow iron level. CT abdomen without oral or IV contrast we will be requested as well as ultrasound of the abdomen Venous blood gas to assess metabolic status as the patient carbon dioxide of the CMP is 15 Patient also noted to have hyperglycemia, we will order hemoglobin A1c. Hyperglycemia and hypoglycemia protocol ordered Continue to follow amylase and lipase level in a.m. NEURO: Minimize central acting medications as possible. Fall Precautions. Well lighted room through the day and minimize interruptions through the night to prevent acute delirium. PULMONARY: Supplemental 02 as needed BiPAP as necessary, for respiratory distress Titrate Fio2 to keep Spo2 > or = 90% DuoNebs and CPT as needed IS hourly while awake for pulmonary hygiene prn Out of bed to chair as tolerated Maintain aspiration precautions at all times CARDIOVASCULAR: Follow hemodynamics. Vital signs per facility protocol GI & NUTRITION: Continue nutritional support Aspirations precautions Prokinetic agents and laxatives as needed KIDNEYS & ELECTROLYTES: Strict monitoring of intake and output Daily weights Avoid nephrotoxic agents Monitor electrolytes and replace as needed Goal urine output of 30mL/hr or 0.5mL/kg/hr Medications to be dosed according to renal function. Avoid contrast if possible ENDOCRINE: Maintain blood glucose between 100-180 at all times. Insulin sliding scale for blood glucose management Hypoglycemia and hyperglycemia protocol in place INFECTIOUS DISEASE: Trend temperature, WBC and procalcitonin level Follow cultures, deescalate antibiotics as soon as possible. Panculture if new onset fever HEMATOLOGY & COAGULATION: Monitor H&H. Keep Hgb > 7 Transfuse 1 unit of PRBC for Hgb < 7 Transfuse 1 pack of platelets of platelets < 20, 000 Watch for any signs and symptoms of bleeding SKIN: Pressure ulcer prevention per facility protocol Specialty mattress as needed ORTHO/REHAB Continue PT/OT PRN: MEDICATIONS Tylenol 650 mg po every 4 hrs for fever zofran 4 mg IV every 6 hrs for n/v Hydralazine 5 mg IV every 4 hrs systolic pressure > 160 bowel regiment: lactulose 20 gm PO BID PRN constipation Supportive measures: Continue GI and DVT prophylaxis Disposition: Admit patient to the ICU, pending improvement in clinical condition. All questions answered time spent: > 35 min DAVIS WINTERS MD Oct 27, 2024 14:45
[2024-10-27] MEDS: PANTOPrazole 40 MG/VIAL IVP SCH (15:00)
[2024-10-27] MEDS ORDERED: GLUCAGON 1MG KIT 1 MG ML IM PRN ×2 (15:00)
[2024-10-27] MEDS ORDERED: PHARMACY COMMUNICATION MISC PRN (15:00)
[2024-10-27] MEDS ORDERED: LORazepam 2 MG/ML 1 ML VIAL IVP PRN (15:00)
[2024-10-27] MEDS ORDERED: PoTASSium chl 10% ELIXIR 20MEQ 20 MEQ/15 ML UDCUP PO PRN (15:00)
[2024-10-27] MEDS ORDERED: chlordiazePOXIDE HCL 25 MG CAP PO PRN (15:00)
[2024-10-27] MEDS ORDERED: DEXTROSE 50%-WATER 50 ML DISP.SYRIN IV PRN ×2 (15:00)
[2024-10-27] MEDS ORDERED: PoTASSium chloRIDE 20MEQ/100ML 100 ML IV PRN (15:00)
[2024-10-27 15:04] LABS: % IRON SATURATION 8.9 % (30-44)
[2024-10-27 15:06] LABS: HEMOGLOBIN A1C 5.5 % (4.0-6.0)
[2024-10-27] MEDS: diazePAM 5 MG/ML 2 ML SYG IV PRN (15:16)
[2024-10-27] MEDS: THIAMINE HCL 100 MG, FOLic ACID 5 MG/ML VIAL 1 MG, M.V.I. IV [ADULT] 10 ML in 0.9%NACL ... IV SCH (15:17)
[2024-10-27 15:27] LABS: CHOLESTEROL 93 mg/dL (<200); HDL CHOLESTEROL 34 mg/dL (29-71); LDL DIRECT 27 mg/dL (0-99); TRIGLYCERIDES 1270 mg/dL (30-200)
[2024-10-27] MEDS: dexmedeTOMIDINE 200MCG/NS 50ML IV SCH (15:31)
[2024-10-27] MEDS: LACTATED RINGERS 1000ML IV ONE (15:37)
--- NOTE | 2024-10-27 15:44 | NUR ---
CT EXAM ON HOLD UNTIL FURTHER NOTICE. PER NURSE, PATIENT IS UNSTABLE.
--- NOTE | 2024-10-27 15:59 | HMCIMG ---
Exam Type: Complete abdominal ultrasound with hepatic color-flow Doppler Findings: The liver shows fatty infiltration and is enlarged, measuring 17 cm and is otherwise unremarkable. Doppler evaluation shows patent portal and hepatic veins. The gallbladder shows no significant abnormalities. Specifically, no calculi are seen. No bile duct dilatation is noted. The gallbladder wall measures 2 mm. The common bile duct measures 4 mm. The right kidney measures 8.1 x 5 cm. The left kidney measures 8.6 x 4 cm. The kidneys show no hydronephrosis or calculi, masses or other abnormalities. The pancreas is unremarkable. The spleen is unremarkable. The aorta and inferior vena cava show no significant abnormalities. IMPRESSION: FATTY LIVER INFILTRATION AND HEPATOMEGALY. OTHERWISE NORMAL ABDOMINAL ULTRASOUND.
--- NOTE | 2024-10-27 16:00 | EKG ---
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
--- NOTE | 2024-10-27 17:19 | HMCIMG ---
CT ABDOMEN/PELVIS W/O CONTRAST CLINICAL HISTORY: anemia, nausea, vomiting, alcohol abuse COMPARISON: None TECHNIQUE: Sequential axial images of abdomen and pelvis without contrast and with sagittal and coronal reconstructions. CT was performed with one or more of the following dose reduction techniques: automated exposure control, adjustment of the mA and/or kV according to patient size, or use of iterative reconstruction technique FINDINGS: There is a moderate sized hiatal hernia the gastric fundus and proximal body with fluid demonstrated within the area above the diaphragmatic hiatus and likely refluxing into the esophagus. The lung bases are clear.. The liver demonstrates enlargement and diffuse fatty infiltration. The spleen is unremarkable. The gallbladder pancreas and adrenal glands are unremarkable. The small exophytic right renal cortical cysts. The left kidney and bladder are unremarkable. The large and small bowel are predominantly decompressed. There is no free air or free fluid. There is no bulky abdominal or retroperitoneal lymphadenopathy. The prostate gland appears unremarkable. The bony structures are unremarkable. IMPRESSION: Moderate-sized hiatal hernia. Findings a decompressed large and small bowel consistent with a history of nausea and vomiting. Enlarged fatty liver
[2024-10-27] MEDS ORDERED: ESCI20TA PO (18:12)
[2024-10-27] MEDS: dexmedeTOMIDine 400MCG/NS100ML IV SCH (18:45)
[2024-10-27] MEDS ORDERED: FAMOTIDINE 20MG TAB PO SCH (21:00)
[2024-10-28] VITALS (47 sets, daily range): BP systolic 87–140; BP diastolic 49–93; PULSE 64–142; RESP 4–25; TEMP 97.6–98.7; O2SAT 97–100
--- NOTE | 2024-10-28 00:10 | CONS ---
[facility] CONSULTATION NOTE Date Patient Seen: Oct 27, 2024 Time of Visit: 15;00 Supervising Physician: Leoncio Garcia MD Reason for Consultation: alcohol withdrawals. Primary Care Physician: Self referral Outpatient Specialists:none Inpatient Consults: CALLUM Attending: Kiesha Vidal MD PROBLEM LIST: SIRS POA Severe acute alcohol withdrawal, POA Acute metabolic acidosis likely from etoh, POA History of alcohol abuse, POA Fatty liver hepatomegaly Moderate size hiatal hernia POA Anemia, can not exclude acute GI bleed, POA Thrombocytosis, poa Mild acute pancreatitis, POA Drug screen positive for benzodiazepine Hyperglycemia, POA HPI: This is a 49 yr old male with a past medical Hx of etoh abuse with previous hospitilizations for withdrawals and pancreatitis. Pt reports he recently quit about 1 month ago and regressed into nige drinking.. He presented to ED for complains of nause and vomiting x 2 days, He reports drinking 6-7 alcoholic drinks including vodka and on the daily basis. He reports feeling nauseated shaky and nauseous. He was admitted by the [facility] team for alcohol withdrawal and we were consulted for Critical care management. Pt awake alert and oriented x 3. He appears very shaky and tachycardic. He is normotensive and reports nause and vomiting that has been controlled with antiemetics. On laboratory HH 10.6/36.6 Plt 724K. neutrophils 80.9. On chemistry CO15. glucose of 148mg/dl. ketones negative. Lipase 80, He is alsopositive for Benzos and alcohol of 98. On UA protein 20, ketone 5.abdominal US shows: FATTY LIVER INFILTRATION AND HEPATOMEGALY. OTHERWISE NORMAL ABDOMINAL ULTRASOUND. CT abdomen and pelvis Moderate-sized hiatal hernia. Findings a decompressed large and small bowel consistent with a history of nausea and vomiting. Enlarged fatty liver. PAST MEDICAL HX: see above PAST SURGICAL HX: noncontributory SOCIAL HISTORY: No tobacco, ETOH, or illicit drug use Coded Allergies: No Known Allergies (Unverified Allergy, Unknown, 04/26/21) REVIEW OF SYSTEMS: 12 point ROS reviewed with patient. Pertinent positives mentioned above. Otherwise negative. PHYSICAL EXAM: GENERAL: alert, weak, awake oriented x 3 HEENT: EOMI, Sclera non icteric, moist mucosa NECK: Supple, no JVD, trachea midline LUNGS: Clear breath sounds bilaterally. No wheezes HEART:Sinus tachycardic rate and rhythm. Normal S1 and S2, without murmurs ABD: Abdomen soft, nontender. Bowel sounds present EXT: No clubbing cyanosis or edema NEURO: shaky and nervous, suspected alcohol withdrawals. Vital Signs (last 8hr) Date Time Temp Pulse Resp B/P (MAP) Pulse Ox O2 Delivery O2 Flow Rate FiO2 10/27/24 22:00 79 13 98/61 (73) 98 10/27/24 21:45 80 13 98/52 (67) 99 10/27/24 21:30 80 14 92/63 (73) 98 10/27/24 21:15 82 14 98/67 (77) 98 10/27/24 21:00 83 14 92/63 (73) 99 10/27/24 20:45 82 12 97/66 (76) 98 10/27/24 20:30 84 15 87/60 (69) 98 10/27/24 20:15 80 12 97/61 (73) 99 10/27/24 20:00 82 12 96/64 (75) 98 10/27/24 19:45 85 12 97/64 (75) 99 10/27/24 19:30 86 15 96/66 (76) 98 10/27/24 19:15 87 12 101/59 (73) 98 10/27/24 19:00 98.6 99 15 94/69 (77) 99 10/27/24 19:00 98 Room Air* 0 21 10/27/24 18:45 91 10 98/68 98 Room Air 10/27/24 18:30 99 Room Air* 0 10/27/24 18:30 93 10 103/66 98 Room Air 10/27/24 18:15 97 16 108/69 98 Room Air 10/27/24 18:00 98.1 105 17 114/79 99 Room Air 10/27/24 17:48 98.1 121 19 111/75 99 Room Air* 0 21 10/27/24 16:21 97.9 127 22 123/68 98 Room Air* 0 21 LABS: Hematology Labs: Test 10/27/24 11:20 Range/Units White Blood Count 9.0 4.8-10.8 K/uL Red Blood Count 4.44 L 4.50-6.20 MIL/uL Hemoglobin 10.6 L 14.0-18.0 g/dL Hematocrit 36.6 L 42-54 % Mean Corpuscular Volume 82.4 79-99 fL Mean Corpuscular Hemoglobin 23.9 L 27.0-33.0 pg Mean Corpuscular Hemoglobin Concent 29.0 L 32.0-36.0 g/dL Red Cell Distribution Width 20.9 H 11.0-15.5 % Platelet Count 724 H 130-400 K/uL Mean Platelet Volume 10.0 7.5-10.5 fL Immature Granulocyte % (Auto) 0.3 0-1 % Neutrophils (%) (Auto) 80.9 H 40.0-77.0 % Lymphocytes (%) (Auto) 12.1 L 21.0-51.0 % Monocytes (%) (Auto) 5.2 3.0-13.0 % Eosinophils (%) (Auto) 0.0 0.0-8.0 % Basophils (%) (Auto) 1.5 0.0-5.0 % Neutrophils # (Auto) 7.3 1.8-7.7 K/uL Lymphocytes # (Auto) 1.1 1.0-4.8 K/uL Monocytes # (Auto) 0.5 0.1-1.0 K/uL Eosinophils # (Auto) 0.00 0.00-0.70 K/uL Basophils # (Auto) 0.13 0.00-0.20 K/uL Absolute Immature Granulocyte (auto 0.03 0-1 K/uL Nucleated Red Blood Cells 0.0 0.0-0.19 % Platelet Morphology Comment INCREASED Red Blood Cell Morphology See comments Chemistry Labs: Test 10/27/24 15:24 10/27/24 11:20 Range/Units Whole Blood Ketones Quantitative 0.3 0.0-0.6 mmol/L Sodium Level 140 136-145 mmol/L Potassium Level 4.3 3.5-5.1 mmol/L Chloride Level 103 101-111 mmol/L Carbon Dioxide Level 15 L 21-32 mmol/L Blood Urea Nitrogen 15 7-18 mg/dL Creatinine 1.3 0.5-1.3 mg/dL Glomerular Filtration Rate Calc 68 >90 mL/min Random Glucose 148 H 70-105 mg/dL Hemoglobin A1c 5.5 4.0-6.0 % Estimated Average Glucose (eAG) 111 70-126 mg/dL Total Calcium 8.7 8.5-10.1 mg/dL Magnesium Level 2.00 1.80-2.40 mg/dL Iron Level 49 #L 65-175 mcg/dL Total Iron Binding Capacity 545 H 250-450 mcg/dL Percent Iron Saturation 8.9 L 30-44 % Troponin I High Sensitivity 8 4-75 ng/L Triglycerides Level 1270 H 30-200 mg/dL Cholesterol Level 93 # <200 mg/dL LDL Cholesterol 27 0-99 mg/dL HDL Cholesterol 34 29-71 mg/dL Lipase 80 H 16-77 U/L DIAGNOSTICS / RADIOLOGY RESULTS: [ ] Signed PATIENT: JAYLEN PADILLA MR#: [id number] : 1975 SEX: M AGE: 49 LOCATION: [facility] ORDER STATUS: ADM IN REPORT#: [id number] SERVICE REASON: anemia, nausea, vomiting, alcohol abuse ORDERING PHYSICIAN: DAVIS WINTERS MD PROCEDURE: ABD PEL WO - CT ABDOMEN/PELVIS W/O CONTRAST CT ABDOMEN/PELVIS W/O CONTRAST CLINICAL HISTORY: anemia, nausea, vomiting, alcohol abuse COMPARISON: None TECHNIQUE: Sequential axial images of abdomen and pelvis without contrast and with sagittal and coronal reconstructions. CT was performed with one or more of the following dose reduction techniques: automated exposure control, adjustment of the mA and/or kV according to patient size, or use of iterative reconstruction technique FINDINGS: There is a moderate sized hiatal hernia the gastric fundus and proximal body with fluid demonstrated within the area above the diaphragmatic hiatus and likely refluxing into the esophagus. The lung bases are clear.. The liver demonstrates enlargement and diffuse fatty infiltration. The spleen is unremarkable. The gallbladder pancreas and adrenal glands are unremarkable. The small exophytic right renal cortical cysts. The left kidney and bladder are unremarkable. The large and small bowel are predominantly decompressed. There is no free air or free fluid. There is no bulky abdominal or retroperitoneal lymphadenopathy. The prostate gland appears unremarkable. The bony structures are unremarkable. IMPRESSION: Moderate-sized hiatal hernia. Findings a decompressed large and small bowel consistent with a history of nausea and vomiting. Enlarged fatty liver DICTATED BY: RILEY VILLEGAS DO DATE: 10/27/24 1710 ELECTRONICALLY SIGNED BY: RILEY VILLEGAS DO DATE: 10/27/24 1719 PLAN icu care NEURO: Minimize central acting medications as possible. Fall Precautions. Well lighted room through the day and minimize interruptions through the night to prevent acute delirium. Valim 10mg q6hrs iv precedex gtt PULMONARY: Supplemental 02 as needed Titrate Fio2 to keep Spo2 > or = 90% DuoNebs and CPT as needed IS hourly while awake for pulmonary hygiene Out of bed to chair as tolerated CARDIOVASCULAR: Follow hemodynamics. Titrate vasopressor to keep MAP >65 or systolic blood pressure >95mmHg cardiac monitoring DRIPS: precedex LINES: PIV GI & NUTRITION: Continue nutritional support Aspirations precautions Prokinetic agents and laxatives as needed npo for now KIDNEYS & ELECTROLYTES: Strict monitoring of intake and output Daily weights Avoid nephrotoxic agents Monitor electrolytes and replace as needed Goal urine output of 30mL/hr or 0.5mL/kg/hr ENDOCRINE: Maintain blood glucose between 100-180 at all times. Insulin sliding scale for blood glucose management INFECTIOUS DISEASE: Trend temperature. Woods-culture if febrile. Micro: [ ] Antibiotics: [zosyn HEMATOLOGY & COAGULATION: Monitor H&H. Keep Hgb > 7 Transfuse 1 unit of PRBC for Hgb < 7 Transfuse 1 pack of platelets of platelets < 20, 000 Watch for any signs and symptoms of bleeding SKIN: Pressure ulcer prevention per facility protocol Rehab: PT/OT Prophylaxis: GI: Protonix 40 bid ivp DVT: scd due to anemia Code Status: Full Resuscitation Disposition: icu Other: Total patient care time exceeds 35 minutes excluding all procedures. Case was discussed and seen with my supervising physician. The above plan was formulated and agreed upon. ATTESTATION BY PHYSICIAN I reviewed the documentation, medical decision making, and treatment plan as noted by the mid-level provider above. I agree with the findings and plan of care. Leoncio Garcia MD, NELLY J VP DESIGN Oct 28, 2024 00:10
[2024-10-28 04:37] LABS: BILIRUBIN,TOTAL 0.6 mg/dL (0.2-1.0); CREATININE 0.9 mg/dL (0.5-1.3); MAGNESIUM 1.7 mg/dL (1.80-2.40); POTASSIUM 3.5 mmol/L (3.5-5.1); TOTAL PROTEIN, SERUM 6.4 g/dL (6.0-8.3)
[2024-10-28 04:49] LABS: MEAN CORPUSCULAR HEMOGLOBIN 23.8 pg (27.0-33.0); MEAN CORPUSCULAR HGB CONC 28.6 g/dL (32.0-36.0); MEAN CORPUSCULAR VOLUME 83.3 fL (79-99); RED BLOOD CELL COUNT(AUTO) 3.36 MIL/uL (4.50-6.20)
[2024-10-28 04:50] LABS: WHITE BLOOD COUNT (AUTO) 3.6 K/uL (4.8-10.8)
[2024-10-28] MEDS: ZOSYN 3.375GM +NS 50ML IV SCH ×2 (06:47→16:56)
[2024-10-28] MEDS: MAGNESIUM 2GM PREMIX 50ML 50 ML IV PRN (06:49)
[2024-10-28] MEDS: PoTASSium chloRIDE 20MEQ ER 20 MEQ ERTAB PO PRN (06:49)
[2024-10-28] MEDS ORDERED: MAGNESIUM 2GM PREMIX 50ML 50 ML IV SCH (08:30)
[2024-10-28] MEDS: PoTASSium chloRIDE 20MEQ/100ML 100 ML IV ONE (10:00)
[2024-10-28] MEDS ORDERED: PHARMACY COMMUNICATION MISC SCH (10:00)
--- NOTE | 2024-10-28 10:04 | HMCIMG ---
CHEST 1VW HISTORY: SIRS COMPARISON: 10/10/2024 FINDINGS: A frontal projection of the chest was obtained. No acute pulmonary infiltrates is seen. The heart is normal in size. Prominent interstitial markings are seen. No evidence of aortic calcification is seen. IMPRESSION: 1. No acute pulmonary infiltrate is seen.
[2024-10-28] MEDS: diazePAM 5 MG TAB PO SCH (11:25)
--- NOTE | 2024-10-28 11:33 | PN ---
[facility] PROGRESS NOTE Date Patient Seen: Oct 28, 2024 Time of Visit: 12:19 Supervising Physician: [Dr. Wing] Primary Care Physician: Self referral Outpatient Specialists:none Inpatient Consults: BIS Attending: Kiesha Vidal MD PROBLEM LIST: SIRS POA Severe acute alcohol withdrawal, POA Acute metabolic acidosis likely from etoh and dehydration, POA History of alcohol abuse, POA Fatty liver hepatomegaly Moderate size hiatal hernia POA Anemia, can not exclude acute GI bleed, POA Thrombocytosis, poa Mild acute pancreatitis, POA Drug screen positive for benzodiazepine Hyperglycemia, no diabetes diagnosis with A1C of 5.5, POA INTERVAL HISTORY: [He is on CIWA protocol, continues with electrolyte replacement per protocol. His anion gap has closed today. Ketones negative, A1c within normal limits, triglycerides were elevated yesterday at 1270, decreased to 514 today. He continues on vitamin supplementation and thiamine. Patient appears dehydrated on exam, did receive 1 L LR, will provide another bolus. Heart rate within normal limits, continues on Precedex drip. Will attempt to wean off, and start scheduled diazepam. No nausea or vomiting today, no tachypnea or tachycardia. Patient to advance diet. Downgrade to med/surg once off precedex drip.] REVIEW OF SYSTEMS: 12 point ROS reviewed with patient. Pertinent positives mentioned above. Otherwise negative. PHYSICAL EXAM: GENERAL: alert, weak, awake oriented x 3 HEENT: EOMI, Sclera non icteric, moist mucosa NECK: Supple, no JVD, trachea midline LUNGS: Clear breath sounds bilaterally. No wheezes HEART:Sinus tachycardic rate and rhythm. Normal S1 and S2, without murmurs ABD: Abdomen soft, nontender. Bowel sounds present EXT: No clubbing cyanosis or edema NEURO: shaky and nervous, suspected alcohol withdrawals. Vital Signs (last 8hr) Date Time Temp Pulse Resp B/P (MAP) Pulse Ox O2 Delivery O2 Flow Rate FiO2 10/28/24 06:45 67 9 120/82 (95) 99 10/28/24 06:30 65 13 106/59 (75) 98 10/28/24 06:15 69 8 110/77 (88) 98 10/28/24 06:00 68 11 113/80 (91) 98 10/28/24 05:45 65 14 125/73 (90) 98 10/28/24 05:30 70 10 128/93 (105) 99 10/28/24 05:15 65 5 123/79 (94) 99 10/28/24 05:01 70 14 113/74 (87) 99 10/28/24 04:45 66 14 122/75 (91) 98 10/28/24 04:30 70 5 112/71 (85) 98 LABS: Hematology Labs: Test 10/28/24 04:39 10/27/24 11:20 Range/Units White Blood Count 3.6 #L 4.8-10.8 K/uL Red Blood Count 3.36 #L 4.50-6.20 MIL/uL Hemoglobin 8.0 #L 14.0-18.0 g/dL Hematocrit 28.0 #L 42-54 % Mean Corpuscular Volume 83.3 79-99 fL Mean Corpuscular Hemoglobin 23.8 L 27.0-33.0 pg Mean Corpuscular Hemoglobin Concent 28.6 L 32.0-36.0 g/dL Red Cell Distribution Width 20.0 H 11.0-15.5 % Platelet Count 419 #H 130-400 K/uL Mean Platelet Volume 9.7 7.5-10.5 fL Nucleated Red Blood Cells 0.0 0.0-0.19 % Immature Granulocyte % (Auto) 0.3 0-1 % Neutrophils (%) (Auto) 80.9 H 40.0-77.0 % Lymphocytes (%) (Auto) 12.1 L 21.0-51.0 % Monocytes (%) (Auto) 5.2 3.0-13.0 % Eosinophils (%) (Auto) 0.0 0.0-8.0 % Basophils (%) (Auto) 1.5 0.0-5.0 % Neutrophils # (Auto) 7.3 1.8-7.7 K/uL Lymphocytes # (Auto) 1.1 1.0-4.8 K/uL Monocytes # (Auto) 0.5 0.1-1.0 K/uL Eosinophils # (Auto) 0.00 0.00-0.70 K/uL Basophils # (Auto) 0.13 0.00-0.20 K/uL Absolute Immature Granulocyte (auto 0.03 0-1 K/uL Platelet Morphology Comment INCREASED Red Blood Cell Morphology See comments Chemistry Labs: Test 10/28/24 03:45 10/27/24 15:24 10/27/24 11:20 Range/Units Sodium Level 138 136-145 mmol/L Potassium Level 3.5 3.5-5.1 mmol/L Chloride Level 104 101-111 mmol/L Carbon Dioxide Level 23 21-32 mmol/L Blood Urea Nitrogen 11 7-18 mg/dL Creatinine 0.9 0.5-1.3 mg/dL Glomerular Filtration Rate Calc 105 >90 mL/min Random Glucose 116 H 70-105 mg/dL Lactic Acid Level 1.6 0.8-2.5 mmol/L Total Calcium 7.7 L 8.5-10.1 mg/dL Magnesium Level 1.70 L 1.80-2.40 mg/dL Total Bilirubin 0.6 0.2-1.0 mg/dL Aspartate Amino Transf (AST/SGOT) 63 H 10-37 U/L Alanine Aminotransferase (ALT/SGPT) 55 12-78 U/L Alkaline Phosphatase 75 50-136 U/L Total Protein 6.4 6.0-8.3 g/dL Albumin 3.0 L 3.5-5.0 g/dL Triglycerides Level 514 H 30-200 mg/dL Amylase Level 51 # 25-115 U/L Lipase 76 16-77 U/L Whole Blood Ketones Quantitative 0.3 0.0-0.6 mmol/L Hemoglobin A1c 5.5 4.0-6.0 % Estimated Average Glucose (eAG) 111 70-126 mg/dL Iron Level 49 #L 65-175 mcg/dL Total Iron Binding Capacity 545 H 250-450 mcg/dL Percent Iron Saturation 8.9 L 30-44 % Troponin I High Sensitivity 8 4-75 ng/L Cholesterol Level 93 # <200 mg/dL LDL Cholesterol 27 0-99 mg/dL HDL Cholesterol 34 29-71 mg/dL DIAGNOSTICS / RADIOLOGY RESULTS: [ ] PLAN 1L LR bolus now Continue Vitamin supplementation Zofran p.r.n. for nausea or vomiting Advance diet as tolerated Wean off Precedex drip per CIWA protocol, continue diazepam scheduled Downgrade to med/surg once off precedex drip NEURO: Minimize central acting medications as possible. Fall Precautions. Well lighted room through the day and minimize interruptions through the night to prevent acute delirium. Valim 10mg q6hrs iv precedex gtt PULMONARY: Supplemental 02 as needed Titrate Fio2 to keep Spo2 > or = 90% DuoNebs and CPT as needed IS hourly while awake for pulmonary hygiene Out of bed to chair as tolerated CARDIOVASCULAR: Follow hemodynamics. Titrate vasopressor to keep MAP >65 or systolic blood pressure >95mmHg cardiac monitoring DRIPS: precedex LINES: PIV GI & NUTRITION: Continue nutritional support Aspirations precautions Prokinetic agents and laxatives as needed npo for now KIDNEYS & ELECTROLYTES: Strict monitoring of intake and output Daily weights Avoid nephrotoxic agents Monitor electrolytes and replace as needed Goal urine output of 30mL/hr or 0.5mL/kg/hr ENDOCRINE: Maintain blood glucose between 100-180 at all times. Insulin sliding scale for blood glucose management INFECTIOUS DISEASE: Trend temperature. Woods-culture if febrile. Micro: [ ] Antibiotics: [zosyn HEMATOLOGY & COAGULATION: Monitor H&H. Keep Hgb > 7 Transfuse 1 unit of PRBC for Hgb < 7 Transfuse 1 pack of platelets of platelets < 20, 000 Watch for any signs and symptoms of bleeding SKIN: Pressure ulcer prevention per facility protocol Rehab: PT/OT Prophylaxis: GI: Protonix 40 bid ivp DVT: scd due to anemia Code Status: Full Resuscitation Disposition: downgrade to [facility] Other: Total patient care time exceeds 45 minutes excluding all procedures. Case was discussed and seen with my supervising physician. The above plan was formulated and agreed upon. LOCO LEMOS Oct 28, 2024 11:33
[2024-10-28] MEDS ORDERED: COMPOUND IV REFRIGERATED 1 EACH IVSOLN MISC PRN (12:00)
--- NOTE | 2024-10-28 12:08 | PN ---
[facility] PROGRESS NOTE Date of Service: Oct 28, 2024 Time of Service: 12:05 SUBJECTIVE: The patient is a very pleasant 49-year-old male, past medical history of alcohol abuse, as well as acute pancreatitis, presented to the emergency room at [facility] 10/27/2024 with the chief complaint of nausea and vomiting since yesterday. According to the patient, he drinks 6-7 alcoholic drinks to include shots of vodka on a daily basis. He quit drinking heavily for month ago, however started to drink again few days ago, earlier this morning he started feeling very anxious and shaky, reason for which he decided to present to the emergency room. Last alcohol drink was yesterday. In the emergency room, the patient looks extremely anxious, very tachycardic, he art rate in the range of 140. He has received total of 15 mg IV of diazepam. Currently lorazepam is in back ordered. No improvement noted. At the time of my visit the patient is alert oriented x3, extremely anxious, shivering, having palpitations, heart rate noted to be in the range of 135-140, with systolic blood pressure as high as 152/89. He is afebrile and saturating normal on room air. CBC done shows hemoglobin of 10.6, hematocrit 36.6 with a platelet count of 724. A carbon dioxide of 15. Lipase level of 80. Toxicology screen positive for benzodiazepine. Alcohol level of 80. 10/28 patient is seen and examined at bedside earlier this morning, no acute events overnight, the patient resting calm, hemodynamically stable, BP 114/80, heart rate controlled at 67, saturating normal on room air, alert oriented x3, no chest pain, shortness shortness for breath, no nausea, no vomiting, no abdominal pain. He is currently on Precedex. REVIEW OF SYSTEMS CONSTITUTIONAL: Denies fevers, chills, or night sweats. No unintentional weight loss reported. NEUROLOGICAL: Denies headache, amaurosis fugax, motor weakness, sensory deficit, vertigo/spinning sensation, gait abnormalities, or tremors. ENT: No hearing loss, otalgia, otorrhea, rhinitis, rhinorrhea, hoarseness, or sore throat. CARDIOVASCULAR: Denies any exertional angina, dyspnea on exertion, orthopnea, paroxysmal nocturnal dyspnea, palpitations, life-threatening arrhythmias, claudication. PULMONARY: Denies any shortness of breath, cough, phlegm/sputum, hemoptysis, pleuritic chest pain. SLEEP: Denies morning headaches, daytime somnolence or napping. Denies difficulty falling asleep, staying asleep, waking from sleep. Denies knowledge of snoring. GASTROINTESTINAL: Denies any type of dysphagia to either liquids or solids. Denies nausea, vomiting, pyrosis, early satiety, abdominal pain, diarrhea, constipation, or changes in stool consistency or caliber. Denies coffee-ground emesis, hematemesis, hematochezia, or melanotic stools. GENITOURINARY: Denies frequency, urgency, nocturia, hematuria or incontinence (Storage/Irritative symptoms.) Low urinary stream, straining to void, urinary intermittency or hesitancy, splitting of the voiding stream, terminal dribbling. ENDOCRINOLOGIC: Denies polyuria, polydipsia, polyphagia or heat/cold intolerances. HEMATOLOGIC: Denies thrombophilia/previous clots, or coagulopathy/bleeding disorders. ONCOLOGIC: Denies personal history of malignancy. DERMATOLOGIC: Denies rashes or pruritus. PSYCHIATRIC: Denies any suicidal or homicidal ideation. Denies hallucinations. PHYSICAL EXAM GENERAL APPEARANCE: The patient is awake, alert, and oriented, in no acute cardiopulmonary distress. NEUROLOGICAL: Cranial nerves II-XII grossly intact. Motor is 5/5 in bilateral upper and lower extremities proximal to distal. No sensory deficits. HEENT: Face is symmetric. Pupils are equal and reactive. Extraocular movements are intact. NECK: Supple. No JVD. No thyromegaly. No submental, submandibular, pre- /postauricular, occipital or supraclavicular lymphadenopathy. CHEST: Normal chest expansion. No Telemetry. LUNGS: Absence of any rales, rhonchi or any wheezing. CARDIOVASCULAR: Regular. S1 and S2 normal. No appreciable rubs, murmurs or gallops. ABDOMEN: Soft, nontender, and nondistended. There is no rebound, voluntary guarding, or rigidity. : Deferred. No Valdez. EXTREMITIES: Non-edematous and not cyanotic. No clubbing. Good capillary refill. SKIN: No skin breakdown. Vital Signs (last 8hr) Date Time Temp Pulse Resp B/P (MAP) Pulse Ox O2 Delivery O2 Flow Rate FiO2 10/28/24 11:00 67 8 114/80 100 Room Air 10/28/24 10:30 69 14 114/72 99 Room Air 10/28/24 10:00 66 13 124/62 98 Room Air 10/28/24 09:30 69 13 109/80 97 Room Air 10/28/24 09:00 64 16 117/85 97 Room Air 10/28/24 08:30 64 14 113/83 97 Room Air 10/28/24 08:00 99 Room Air* 0 21 10/28/24 08:00 97.9 67 8 125/80 99 Room Air 10/28/24 07:30 64 13 108/73 98 Room Air 10/28/24 07:00 66 15 122/83 99 Room Air 10/28/24 06:45 67 9 120/82 (95) 99 10/28/24 06:30 65 13 106/59 (75) 98 10/28/24 06:15 69 8 110/77 (88) 98 10/28/24 06:00 68 11 113/80 (91) 98 10/28/24 05:45 65 14 125/73 (90) 98 10/28/24 05:30 70 10 128/93 (105) 99 10/28/24 05:15 65 5 123/79 (94) 99 10/28/24 05:01 70 14 113/74 (87) 99 10/28/24 04:45 66 14 122/75 (91) 98 10/28/24 04:30 70 5 112/71 (85) 98 10/28/24 04:15 67 8 120/86 (97) 98 LABS: Laboratory: Test 10/28/24 04:39 10/28/24 03:45 10/27/24 15:24 10/27/24 11:20 Range/Units White Blood Count 3.6 #L 4.8-10.8 K/uL Red Blood Count 3.36 #L 4.50-6.20 MIL/uL Hemoglobin 8.0 #L 14.0-18.0 g/dL Hematocrit 28.0 #L 42-54 % Mean Corpuscular Volume 83.3 79-99 fL Mean Corpuscular Hemoglobin 23.8 L 27.0-33.0 pg Mean Corpuscular Hemoglobin Concent 28.6 L 32.0-36.0 g/dL Red Cell Distribution Width 20.0 H 11.0-15.5 % Platelet Count 419 #H 130-400 K/uL Mean Platelet Volume 9.7 7.5-10.5 fL Nucleated Red Blood Cells 0.0 0.0-0.19 % Sodium Level 138 136-145 mmol/L Potassium Level 3.5 3.5-5.1 mmol/L Chloride Level 104 101-111 mmol/L Carbon Dioxide Level 23 21-32 mmol/L Blood Urea Nitrogen 11 7-18 mg/dL Creatinine 0.9 0.5-1.3 mg/dL Glomerular Filtration Rate Calc 105 >90 mL/min Random Glucose 116 H 70-105 mg/dL Lactic Acid Level 1.6 0.8-2.5 mmol/L Total Calcium 7.7 L 8.5-10.1 mg/dL Magnesium Level 1.70 L 1.80-2.40 mg/dL Total Bilirubin 0.6 0.2-1.0 mg/dL Aspartate Amino Transf (AST/SGOT) 63 H 10-37 U/L Alanine Aminotransferase (ALT/SGPT) 55 12-78 U/L Alkaline Phosphatase 75 50-136 U/L Total Protein 6.4 6.0-8.3 g/dL Albumin 3.0 L 3.5-5.0 g/dL Triglycerides Level 514 H 30-200 mg/dL Amylase Level 51 # 25-115 U/L Lipase 76 16-77 U/L Whole Blood Ketones Quantitative 0.3 0.0-0.6 mmol/L Immature Granulocyte % (Auto) 0.3 0-1 % Neutrophils (%) (Auto) 80.9 H 40.0-77.0 % Lymphocytes (%) (Auto) 12.1 L 21.0-51.0 % Monocytes (%) (Auto) 5.2 3.0-13.0 % Eosinophils (%) (Auto) 0.0 0.0-8.0 % Basophils (%) (Auto) 1.5 0.0-5.0 % Neutrophils # (Auto) 7.3 1.8-7.7 K/uL Lymphocytes # (Auto) 1.1 1.0-4.8 K/uL Monocytes # (Auto) 0.5 0.1-1.0 K/uL Eosinophils # (Auto) 0.00 0.00-0.70 K/uL Basophils # (Auto) 0.13 0.00-0.20 K/uL Absolute Immature Granulocyte (auto 0.03 0-1 K/uL Platelet Morphology Comment INCREASED Red Blood Cell Morphology See comments Urine Color LIGHT-YELLOW YELLOW Urine Appearance CLEAR CLEAR Urine pH 5.0 5.0-8.0 Urine Specific [place] 1.023 1.001-1.031 Urine Protein 20 H NEGATIVE mg/dL Urine Glucose (UA) NEGATIVE NEGATIVE mg/dL Urine Ketones 5 H NEGATIVE mg/dL Urine Occult Blood NEGATIVE NEGATIVE Urine Nitrate NEGATIVE NEGATIVE Urine Bilirubin NEGATIVE NEGATIVE mg/dL Urine Urobilinogen 0.2 0.2-1.0 mg/dL Urine Leukocyte Esterase NEGATIVE NEGATIVE Riaz/uL Urine RBC 0-1 0-1 /HPF Urine WBC 0-1 0-1 /HPF Urine Amorphous Crystals (Auto) RARE None Seen /LPF Urine Bacteria None None Seen /HPF Hemoglobin A1c 5.5 4.0-6.0 % Estimated Average Glucose (eAG) 111 70-126 mg/dL Iron Level 49 #L 65-175 mcg/dL Total Iron Binding Capacity 545 H 250-450 mcg/dL Percent Iron Saturation 8.9 L 30-44 % Troponin I High Sensitivity 8 4-75 ng/L Cholesterol Level 93 # <200 mg/dL LDL Cholesterol 27 0-99 mg/dL HDL Cholesterol 34 29-71 mg/dL Urine Opiates Screen NEGATIVE NEGATIVE Urine Barbiturates Screen NEGATIVE NEGATIVE Urine Phencyclidine Screen NEGATIVE NEGATIVE Urine Amphetamines Screen NEGATIVE NEGATIVE Urine Benzodiazepines Screen POSITIVE H NEGATIVE Urine Cocaine Screen NEGATIVE NEGATIVE Urine Marijuana (THC) Screen NEGATIVE NEGATIVE Serum Alcohol 98 H 0-10 mg/dL Current Medications Medications (Trade) Dose Ordered Sig/Aleida Route PRN Reason Start Time Stop Time Status Last Admin Dose Admin Acetaminophen (TYLenol 325MG TAB) 650 mg Q6H PRN PO TEMPERATURE GREATER THAN 101.5 10/27/24 14:30 11/26/24 14:29 Chlordiazepoxide HCl (LIBrium 25 MG CAP) 50 mg Q1H PRN PO ALCOHOL WITHDRAWAL PROTOCOL 10/27/24 15:00 10/28/24 09:53 DC Dexmedetomidine/ Sodium Chloride (PRECEdex 200MCG/ 50ML-NS) 200 mcg PROTOCOL IV 10/27/24 15:00 10/27/24 18:30 DC 10/27/24 15:31 200 MCG Dexmedetomidine/ Sodium Chloride (PRECEdex 400MCG/ 100ML-NS) 400 mcg PROTOCOL IV 10/27/24 18:30 11/26/24 18:29 10/27/24 18:45 400 MCG Dextrose (D50w) 50 ml AD PRN IV HYPOGLYCEMIA PROTOCOL 10/27/24 15:00 10/27/24 14:50 DC Dextrose (D50w) 50 ml AD PRN IV HYPOGLYCEMIA PROTOCOL 10/27/24 15:00 11/26/24 14:59 Diazepam (VALium 5 MG/ML 2 ML SYG) 10 mg HS IVP 10/31/24 21:00 11/01/24 21:01 Diazepam (VALium 5 MG/ML 2 ML SYG) 10 mg Q6H PRN IV ANXIETY 10/27/24 15:30 11/03/24 15:29 10/27/24 15:16 10 MG Diazepam (VALium 5 mg TAB) 10 mg Q12H PO 10/30/24 10:30 10/31/24 10:29 Diazepam (VALium 5 mg TAB) 10 mg Q6H PO 10/28/24 10:30 10/29/24 10:29 10/28/24 11:25 10 MG Diazepam (VALium 5 mg TAB) 10 mg Q8H PO 10/29/24 10:30 10/30/24 10:29 Famotidine (Pepcid 20mg Tab) 20 mg BID PO 10/27/24 21:00 10/27/24 14:36 DC Glucagon (Glucagon 1mg Kit) 1 mg AD PRN IM HYPOGLYCEMIA PROTOCOL 10/27/24 15:00 10/27/24 14:50 DC Glucagon (Glucagon 1mg Kit) 1 mg AD PRN IM HYPOGLYCEMIA PROTOCOL 10/27/24 15:00 11/26/24 14:59 Hydralazine HCl (APRESOLine 20MG INJ) 5 mg Q6H PRN IV For:SBP above 160;DBP above 90 10/27/24 14:30 11/26/24 14:29 Hydromorphone HCl (DiLAUDid 0.5MG INJ) 0.5 mg Q4H PRN IV SEVERE PAIN (7-10) 10/27/24 14:30 11/01/24 14:29 Lorazepam (AtiVAN) 4 mg Q2H PRN IVP ALCOHOL WITHDRAWAL PROTOCOL 10/27/24 15:00 11/03/24 14:59 Magnesium Sulfate 50 ml @ 0 mls/hr PROTOCOL IV 10/28/24 08:30 10/28/24 08:38 DC Magnesium Sulfate 50 ml @ 0 mls/hr PROTOCOL PRN IV hypomagnesemia 10/27/24 15:00 11/26/24 14:59 10/28/24 06:49 25 MLS/HR Ondansetron HCl (zoFRAN 4MG INJ) 4 mg Q6H PRN IV NAUSEA/VOMITING 10/27/24 14:30 11/26/24 14:29 Pantoprazole Sodium (PROTonix 40MG INJ) 40 mg BID IVP 10/27/24 15:00 11/26/24 14:59 10/28/24 09:59 40 MG Pharmacy Profile Note (Pharmacy Communication) 1 each ONCE MISC 10/27/24 11:30 10/27/24 11:33 DC Pharmacy Profile Note (Pharmacy Communication) 1 each ONCE MISC 10/28/24 10:00 10/28/24 10:21 DC Pharmacy Profile Note (Pharmacy Communication) 1 each PROTOCOL PRN MISC ETOH Withdrawal Score changes 10/27/24 15:00 11/03/24 14:59 Piperacillin Sod/ Tazobactam Sod (Zosyn 3.375gm+NS 50ml) 3.375 gm Q8H IV 10/28/24 00:00 10/28/24 06:48 DC 10/28/24 06:47 3.375 GM Piperacillin Sod/ Tazobactam Sod (Zosyn 3.375gm+NS 50ml) 3.375 gm Q8H IV 10/28/24 15:00 11/07/24 14:59 Potassium Chloride 100 ml @ 100 mls/hr AD PRN IV POTASSIUM PROTOCOL 10/27/24 15:00 11/26/24 14:59 Potassium Chloride (K-Dur/Klor-Con 20meq) 20 meq AD PRN PO POTASSIUM PROTOCOL 10/27/24 15:00 11/26/24 14:59 10/28/24 06:49 20 MEQ Potassium Chloride (KCl 10% Elixir 20meq/15ml) 20 meq AD PRN PO POTASSIUM PROTOCOL 10/27/24 15:00 11/26/24 14:59 Thiamine HCl 100 mg/Folic Acid 1 mg/Multivitamins/ Minerals 10 ml/ Sodium Chloride 1,011.2 ml @ 100 mls/ hr Q24H IV 10/27/24 15:00 10/30/24 01:07 10/27/24 15:17 100 MLS/HR DIAGNOSTICS / RADIOLOGY: [ ] CT ABDOMEN/PELVIS W/O CONTRAST CLINICAL HISTORY: anemia, nausea, vomiting, alcohol abuse COMPARISON: None TECHNIQUE: Sequential axial images of abdomen and pelvis without contrast and with sagittal and coronal reconstructions. CT was performed with one or more of the following dose reduction techniques: automated exposure control, adjustment of the mA and/or kV according to patient size, or use of iterative reconstruction technique FINDINGS: There is a moderate sized hiatal hernia the gastric fundus and proximal body with fluid demonstrated within the area above the diaphragmatic hiatus and likely refluxing into the esophagus. The lung bases are clear.. The liver demonstrates enlargement and diffuse fatty infiltration. The spleen is unremarkable. The gallbladder pancreas and adrenal glands are unremarkable. The small exophytic right renal cortical cysts. The left kidney and bladder are unremarkable. The large and small bowel are predominantly decompressed. There is no free air or free fluid. There is no bulky abdominal or retroperitoneal lymphadenopathy. The prostate gland appears unremarkable. The bony structures are unremarkable. IMPRESSION: Moderate-sized hiatal hernia. Findings a decompressed large and small bowel consistent with a history of nausea and vomiting. Enlarged fatty liver ASSESSMENT: Severe acute alcohol withdrawal, POA History of alcohol abuse, POA Anemia, can not exclude acute GI bleed, POA Mild acute pancreatitis, POA Drug screen positive for benzodiazepine Possible acute metabolic acidosis, POA Hyperglycemia, POA Moderate size hiatal hernia, POA Enlarged fatty liver, POA Hepatomegaly, POA Iron deficiency anemia, POA can not exclude acute GI bleed PLAN: Patient remains admitted to the intensive care unit Continue the patient on Precedex, wean as tolerated Critical care consultation requested, case discussed, input noted and appre ciated Amylase and lipase level within the normal range, patient is started on heart healthy diet Iron level low, we will start the patient on Venofer IV, follow stool occult blood, if possible we will request GI consultation NEURO: Minimize central acting medications as possible. Fall Precautions. Well lighted room through the day and minimize interruptions through the night to prevent acute delirium. PULMONARY: Supplemental 02 as needed BiPAP as necessary, for respiratory distress Titrate Fio2 to keep Spo2 > or = 90% DuoNebs and CPT as needed IS hourly while awake for pulmonary hygiene prn Out of bed to chair as tolerated Maintain aspiration precautions at all times CARDIOVASCULAR: Follow hemodynamics. Vital signs per facility protocol GI & NUTRITION: Continue nutritional support Aspirations precautions Prokinetic agents and laxatives as needed KIDNEYS & ELECTROLYTES: Strict monitoring of intake and output Daily weights Avoid nephrotoxic agents Monitor electrolytes and replace as needed Goal urine output of 30mL/hr or 0.5mL/kg/hr Medications to be dosed according to renal function. Avoid contrast if possible ENDOCRINE: Maintain blood glucose between 100-180 at all times. Insulin sliding scale for blood glucose management Hypoglycemia and hyperglycemia protocol in place INFECTIOUS DISEASE: Trend temperature, WBC and procalcitonin level Follow cultures, deescalate antibiotics as soon as possible. Panculture if new onset fever HEMATOLOGY & COAGULATION: Monitor H&H. Keep Hgb > 7 Transfuse 1 unit of PRBC for Hgb < 7 Transfuse 1 pack of platelets of platelets < 20, 000 Watch for any signs and symptoms of bleeding SKIN: Pressure ulcer prevention per facility protocol Specialty mattress as needed ORTHO/REHAB Continue PT/OT PRN: MEDICATIONS Tylenol 650 mg po every 4 hrs for fever zofran 4 mg IV every 6 hrs for n/v Hydralazine 5 mg IV every 4 hrs systolic pressure > 160 bowel regiment: lactulose 20 gm PO BID PRN constipation Supportive measures: Continue GI and DVT prophylaxis Disposition: Admit patient to the ICU, pending improvement in clinical condition. All questions answered time spent: > 35 min DAVIS WINTERS MD Oct 28, 2024 12:08
--- NOTE | 2024-10-28 12:24 | NUR ---
DCP: HOME- SUBSTANCE ABUSE RESOURCES This is pt's third admission this year for alcohol withdrawal. Pt admits to years of alcohol abuse, started on beer and moved to Vodka, Whiskey, and back to Vodka. Pt says he quit on his own for 4 months but restarted. Pt states he has never been to rehab because he has no insurance. Sw educated on [facility] program and provider information and contact # to him. Explained that he has to be the one to call and start the assessment for possible assistance with placement at a rehab. Pt states he is willing to do, when he feels better. Pt lives at home with [id number]. Pt works at [employer], is able to complete ADLS on his own, uses no DME or in home care services. [facility], uses [facility] for rx. DCP is home. Addendum: 10/28/24 at 1231 by SINDY SINGLETON Amended: Links added.
--- NOTE | 2024-10-28 14:55 | NUR ---
Med surg transfer Hand off report given to Nurse Tamez. Patient being transferred to [facility] as med surg status. All questions answered. Patient transferred safely.
[2024-10-28 15:12] LABS: HEMATOCRIT 31.9 % (42-54); MEAN CORPUSCULAR HEMOGLOBIN 23.8 pg (27.0-33.0); MEAN CORPUSCULAR HGB CONC 28.8 g/dL (32.0-36.0); MEAN CORPUSCULAR VOLUME 82.4 fL (79-99); NUCLEATED RED BLOOD CELLS 0.3 % (0.0-0.19); RED BLOOD CELL COUNT(AUTO) 3.87 MIL/uL (4.50-6.20); RED CELL DISTRIBUTION WIDTH 20.2 % (11.0-15.5); WHITE BLOOD COUNT (AUTO) 6.9 K/uL (4.8-10.8)
[2024-10-28 21:15] LABS: HEMATOCRIT 34.3 % (42-54); MEAN CORPUSCULAR HGB CONC 29.2 g/dL (32.0-36.0); MEAN CORPUSCULAR VOLUME 82.5 fL (79-99); NUCLEATED RED BLOOD CELLS 0.4 % (0.0-0.19); RED BLOOD CELL COUNT(AUTO) 4.16 MIL/uL (4.50-6.20); RED CELL DISTRIBUTION WIDTH 20.7 % (11.0-15.5); WHITE BLOOD COUNT (AUTO) 8.3 K/uL (4.8-10.8)
[2024-10-29] VITALS (7 sets, daily range): BP systolic 116–133; BP diastolic 80–84; PULSE 87–116; RESP 16–19; TEMP 98–98.4; O2SAT 99–100
[2024-10-29 04:29] LABS: HEMATOCRIT 29.6 % (42-54); MEAN CORPUSCULAR HEMOGLOBIN 23.5 pg (27.0-33.0); MEAN CORPUSCULAR HGB CONC 28.7 g/dL (32.0-36.0); NUCLEATED RED BLOOD CELLS 0.3 % (0.0-0.19); RED BLOOD CELL COUNT(AUTO) 3.61 MIL/uL (4.50-6.20); RED CELL DISTRIBUTION WIDTH 20.6 % (11.0-15.5); WHITE BLOOD COUNT (AUTO) 5.9 K/uL (4.8-10.8)
[2024-10-29 04:41] LABS: ALBUMIN 3.2 g/dL (3.5-5.0); BILIRUBIN,TOTAL 0.4 mg/dL (0.2-1.0); POTASSIUM 3.4 mmol/L (3.5-5.1); TOTAL PROTEIN, SERUM 6.8 g/dL (6.0-8.3)
[2024-10-29] MEDS: PoTASSium chloRIDE 20MEQ ER 20 MEQ ERTAB PO ONE (08:57)
[2024-10-29 08:58] LABS: HEMATOCRIT 27.9 % (42-54); MEAN CORPUSCULAR HEMOGLOBIN 24.2 pg (27.0-33.0); MEAN CORPUSCULAR HGB CONC 29.7 g/dL (32.0-36.0); MEAN CORPUSCULAR VOLUME 81.3 fL (79-99); NUCLEATED RED BLOOD CELLS 0.4 % (0.0-0.19); RED BLOOD CELL COUNT(AUTO) 3.43 MIL/uL (4.50-6.20); RED CELL DISTRIBUTION WIDTH 20.9 % (11.0-15.5)
--- NOTE | 2024-10-29 11:06 | PN ---
[facility] PROGRESS NOTE Date Patient Seen: Oct 29, 2024 Time of Visit: 10:56 Supervising Physician: Shahzad Wing Primary Care Physician: Self referral Outpatient Specialists:none Inpatient Consults: CALLUM Attending: Kiesha Vidal MD PROBLEM LIST: SIRS POA resolved Severe acute alcohol withdrawal, POA resolved Acute metabolic acidosis likely from etoh and dehydration, POA resolved History of alcohol abuse, POA Fatty liver hepatomegaly Moderate size hiatal hernia POA Anemia, can not exclude acute GI bleed, POA Thrombocytosis, poa Mild acute pancreatitis, POA Drug screen positive for benzodiazepine Hyperglycemia, no diabetes diagnosis with A1C of 5.5, POA PROBLEM LIST: Supplemental oxygen as needed Continue Zosyn Continue CIWA protocol Continue diazepam Continue banana bag Out of bed to chair and ambulate Dispo: As per attending INTERVAL HISTORY: This is a 49 yr old male with a past medical Hx of etoh abuse with previous hospitilizations for withdrawals and pancreatitis. Pt reports he recently quit about 1 month ago and regressed into nige drinking.. He presented to ED for complains of nause and vomiting x 2 days, He reports drinking 6-7 alcoholic drinks including vodka and on the daily basis. He reports feeling nauseated shaky and nauseous. He was admitted by [facility] team for alcohol withdrawal and we were consulted for Critical care management. Pt awake alert and oriented x 3. He appears very shaky and tachycardic. He is normotensive and reports nause and vomiting that has been controlled with antiemetics. On laboratory HH 10.6/36.6 Plt 724K. neutrophils 80.9. On chemistry CO15. glucose of 148mg/dl. ketones negative. Lipase 80, He is alsopositive for Benzos and alcohol of 98. On UA protein 20, ketone 5.abdominal US shows: FATTY LIVER INFILTRATION AND HEPATOMEGALY. OTHERWISE NORMAL ABDOMINAL ULTRASOUND. CT abdomen and pelvis Moderate-sized hiatal hernia. Findings a decompressed large and small bowel consistent with a history of nausea and vomiting. Enlarged fatty liver. 10/28 -He is on CIWA protocol, continues with electrolyte replacement per protocol. His anion gap has closed today. Ketones negative, A1c within normal limits, triglycerides were elevated yesterday at 1270, decreased to 514 today. He continues on vitamin supplementation and thiamine. Patient appears dehydrated on exam, did receive 1 L LR, will provide another bolus. Heart rate within normal limits, continues on Precedex drip. Will attempt to wean off, and start scheduled diazepam. No nausea or vomiting today, no tachypnea or tachycardia. Patient to advance diet. Downgrade to med/surg once off precedex drip.] 10/29 - patient was transferred out of ICU where he was being cared for secondary to severe acute alcohol withdrawal, acute metabolic acidosis. Patient has been off Precedex drip and doing well. Patient is seen and evaluated at the bedside. Patient is sitting up in bed with no signs of acute dyspnea. Patient's encephalopathic state has resolved as patient is awake alert and oriented x3. patient does appear to be weak at this time. Patient remains on room air with no signs of respiratory distress. Vital signs are stable. Labs are within normal limits. Patient continues on CIWA protocol. From pulmonary standpoint patient is stable. We will sign off at this time. Thank you for allowing us to care for your patient. Please reconsult if any pulmonary issues arise. Patient has been advised to remain 100% abstinence from alcohol use. REVIEW OF SYSTEMS: 12 point ROS reviewed with patient. Pertinent positives mentioned above. Otherwise negative. PHYSICAL EXAM: GENERAL: alert, weak, awake oriented x 3 HEENT: EOMI, Sclera non icteric, moist mucosa NECK: Supple, no JVD, trachea midline LUNGS: Clear breath sounds bilaterally. No wheezes HEART:Sinus tachycardic rate and rhythm. Normal S1 and S2, without murmurs ABD: Abdomen soft, nontender. Bowel sounds present EXT: No clubbing cyanosis or edema NEURO: shaky and nervous, suspected alcohol withdrawals. Vital Signs (last 8hr) Date Time Temp Pulse Resp B/P (MAP) Pulse Ox O2 Delivery O2 Flow Rate FiO2 10/29/24 08:08 99 Room Air* 0 21 10/29/24 07:56 98.2 98 16 116/81 99 10/29/24 03:56 98.4 116 18 133/82 100 Room Air LABS: Hematology Labs: Test 10/29/24 08:41 10/27/24 11:20 Range/Units White Blood Count 5.0 4.8-10.8 K/uL Red Blood Count 3.43 L 4.50-6.20 MIL/uL Hemoglobin 8.3 L 14.0-18.0 g/dL Hematocrit 27.9 L 42-54 % Mean Corpuscular Volume 81.3 79-99 fL Mean Corpuscular Hemoglobin 24.2 L 27.0-33.0 pg Mean Corpuscular Hemoglobin Concent 29.7 L 32.0-36.0 g/dL Red Cell Distribution Width 20.9 H 11.0-15.5 % Platelet Count 394 130-400 K/uL Mean Platelet Volume 10.2 7.5-10.5 fL Nucleated Red Blood Cells 0.4 H 0.0-0.19 % Immature Granulocyte % (Auto) 0.3 0-1 % Neutrophils (%) (Auto) 80.9 H 40.0-77.0 % Lymphocytes (%) (Auto) 12.1 L 21.0-51.0 % Monocytes (%) (Auto) 5.2 3.0-13.0 % Eosinophils (%) (Auto) 0.0 0.0-8.0 % Basophils (%) (Auto) 1.5 0.0-5.0 % Neutrophils # (Auto) 7.3 1.8-7.7 K/uL Lymphocytes # (Auto) 1.1 1.0-4.8 K/uL Monocytes # (Auto) 0.5 0.1-1.0 K/uL Eosinophils # (Auto) 0.00 0.00-0.70 K/uL Basophils # (Auto) 0.13 0.00-0.20 K/uL Absolute Immature Granulocyte (auto 0.03 0-1 K/uL Platelet Morphology Comment INCREASED Red Blood Cell Morphology See comments Chemistry Labs: Test 10/29/24 03:45 10/28/24 03:45 10/27/24 15:24 10/27/24 11:20 Range/Units Sodium Level 137 136-145 mmol/L Potassium Level 3.4 L 3.5-5.1 mmol/L Chloride Level 102 101-111 mmol/L Carbon Dioxide Level 22 21-32 mmol/L Blood Urea Nitrogen 7 7-18 mg/dL Creatinine 1.0 0.5-1.3 mg/dL Glomerular Filtration Rate Calc 93 >90 mL/min Random Glucose 92 70-105 mg/dL Total Calcium 7.8 L 8.5-10.1 mg/dL Magnesium Level 2.00 1.80-2.40 mg/dL Total Bilirubin 0.4 # 0.2-1.0 mg/dL Aspartate Amino Transf (AST/SGOT) 153 H 10-37 U/L Alanine Aminotransferase (ALT/SGPT) 98 #H 12-78 U/L Alkaline Phosphatase 85 50-136 U/L Total Protein 6.8 6.0-8.3 g/dL Albumin 3.2 L 3.5-5.0 g/dL Lactic Acid Level 1.6 0.8-2.5 mmol/L Triglycerides Level 514 H 30-200 mg/dL Amylase Level 51 # 25-115 U/L Lipase 76 16-77 U/L Whole Blood Ketones Quantitative 0.3 0.0-0.6 mmol/L Hemoglobin A1c 5.5 4.0-6.0 % Estimated Average Glucose (eAG) 111 70-126 mg/dL Iron Level 49 #L 65-175 mcg/dL Total Iron Binding Capacity 545 H 250-450 mcg/dL Percent Iron Saturation 8.9 L 30-44 % Troponin I High Sensitivity 8 4-75 ng/L Cholesterol Level 93 # <200 mg/dL LDL Cholesterol 27 0-99 mg/dL HDL Cholesterol 34 29-71 mg/dL DIAGNOSTICS / RADIOLOGY RESULTS: Signed PATIENT: JAYLEN PADILLA MR#: [id number] : 1975 SEX: M AGE: 49 LOCATION: [facility] ORDER [id number] STATUS: ADM IN REPORT#: [id number] SERVICE [id number] REASON: sirs ORDERING PHYSICIAN: RENAE JUAN PROCEDURE: CXR1VW - CHEST 1VW CHEST 1VW HISTORY: SIRS COMPARISON: 10/10/2024 FINDINGS: A frontal projection of the chest was obtained. No acute pulmonary infiltrates is seen. The heart is normal in size. Prominent interstitial markings are seen. No evidence of aortic calcification is seen. IMPRESSION: 1. No acute pulmonary infiltrate is seen. DICTATED BY: AMBER SETH MD DATE: 10/28/24 1001 ELECTRONICALLY SIGNED BY: AMBER SETH MD DATE: 10/28/24 1004 PLAN Continue CIWA protocol 100% abstinence from alcohol NEURO: Minimize central acting medications as possible. Maintain fall precautions, adequate lighting during the day PULMONARY: Supplemental 02 as needed. Maintain aspiration precautions at all times CARDIOVASCULAR: Follow hemodynamics. Vital signs per facility protocol GI & NUTRITION: Continue with nutritional support. Continue stool softeners and laxatives as needed. KIDNEYS & ELECTROLYTES: Strict monitoring of intake, output and overall fluid balance. Avoid nephrotoxic medications to the extent possible. Medications to be dosed according to renal function. Monitor electrolytes and replace as needed ENDOCRINE: Maintain blood glucose between 100-180 at all times. Hypoglycemia protocol in place INFECTIOUS DISEASE: Trend temperature, WBC and procalcitonin level Follow cultures, deescalate antibiotics as soon as possible. Panculture if new onset fever ONCOLOGY/HEMATOLOGY/COAGULATION: Monitor for s/s of bleeding Monitor hemoglobin, coagulation studies as needed SKIN: Pressure ulcer prevention per facility protocol Specialty mattress ORTHO/REHAB: Continue PT/OT Prophylaxis: Continue GI and DVT prophylaxis Code Status: Full Resuscitation Disposition: As per attending Other: Total patient care time exceeds 35 minutes excluding all procedures. ATTESTATION BY PHYSICIAN The patient has been seen and evaluated, the case has been discussed with the DOUGHNUT ICER MACHINE, I agree with the clinical findings and plan of care. [place]io Wing MD, ECTOR N DOUGHNUT ICER MACHINE Oct 29, 2024 11:06
[2024-10-29] MEDS: diazePAM 5 MG TAB PO SCH (11:13)
--- NOTE | 2024-10-29 12:02 | PN ---
[facility] PROGRESS NOTE Date of Service: Oct 29, 2024 Time of Service: 12:01 SUBJECTIVE: The patient is a very pleasant 49-year-old male, past medical history of alcohol abuse, as well as acute pancreatitis, presented to the emergency room at [facility] 10/27/2024 with the chief complaint of nausea and vomiting since yesterday. According to the patient, he drinks 6-7 alcoholic drinks to include shots of vodka on a daily basis. He quit drinking heavily for month ago, however started to drink again few days ago, earlier this morning he started feeling very anxious and shaky, reason for which he decided to present to the emergency room. Last alcohol drink was yesterday. In the emergency room, the patient looks extremely anxious, very tachycardic, he art rate in the range of 140. He has received total of 15 mg IV of diazepam. Currently lorazepam is in back ordered. No improvement noted. At the time of my visit the patient is alert oriented x3, extremely anxious, shivering, having palpitations, heart rate noted to be in the range of 135-140, with systolic blood pressure as high as 152/89. He is afebrile and saturating normal on room air. CBC done shows hemoglobin of 10.6, hematocrit 36.6 with a platelet count of 724. A carbon dioxide of 15. Lipase level of 80. Toxicology screen positive for benzodiazepine. Alcohol level of 80. 10/28 patient is seen and examined at bedside earlier this morning, no acute events overnight, the patient resting calm, hemodynamically stable, BP 114/80, heart rate controlled at 67, saturating normal on room air, alert oriented x3, no chest pain, shortness shortness for breath, no nausea, no vomiting, no abdominal pain. He is currently on Precedex. 10/29 patient is seen and examined at bedside, case discussed with the RN, downgraded from ICU to the medical floor, he is getting IV fluids, minimal tremor noted, still feels mildly anxious, not at his baseline, he is alert oriented x3, no chest pain, denies shortness a breath, no nausea, no vomiting, no abdominal pain, tolerating diet. REVIEW OF SYSTEMS CONSTITUTIONAL: Denies fevers, chills, or night sweats. No unintentional weight loss reported. NEUROLOGICAL: Denies headache, amaurosis fugax, motor weakness, sensory deficit, vertigo/spinning sensation, gait abnormalities, or tremors. ENT: No hearing loss, otalgia, otorrhea, rhinitis, rhinorrhea, hoarseness, or sore throat. CARDIOVASCULAR: Denies any exertional angina, dyspnea on exertion, orthopnea, paroxysmal nocturnal dyspnea, palpitations, life-threatening arrhythmias, claudication. PULMONARY: Denies any shortness of breath, cough, phlegm/sputum, hemoptysis, pleuritic chest pain. SLEEP: Denies morning headaches, daytime somnolence or napping. Denies difficulty falling asleep, staying asleep, waking from sleep. Denies knowledge of snoring. GASTROINTESTINAL: Denies any type of dysphagia to either liquids or solids. Denies nausea, vomiting, pyrosis, early satiety, abdominal pain, diarrhea, constipation, or changes in stool consistency or caliber. Denies coffee-ground emesis, hematemesis, hematochezia, or melanotic stools. GENITOURINARY: Denies frequency, urgency, nocturia, hematuria or incontinence (Storage/Irritative symptoms.) Low urinary stream, straining to void, urinary intermittency or hesitancy, splitting of the voiding stream, terminal dribbling. ENDOCRINOLOGIC: Denies polyuria, polydipsia, polyphagia or heat/cold intolerances. HEMATOLOGIC: Denies thrombophilia/previous clots, or coagulopathy/bleeding disorders. ONCOLOGIC: Denies personal history of malignancy. DERMATOLOGIC: Denies rashes or pruritus. PSYCHIATRIC: Denies any suicidal or homicidal ideation. Denies hallucinations. PHYSICAL EXAM GENERAL APPEARANCE: The patient is awake, alert, and oriented, in no acute cardiopulmonary distress. NEUROLOGICAL: Cranial nerves II-XII grossly intact. Motor is 5/5 in bilateral upper and lower extremities proximal to distal. No sensory deficits. HEENT: Face is symmetric. Pupils are equal and reactive. Extraocular movements are intact. NECK: Supple. No JVD. No thyromegaly. No submental, submandibular, pre- /postauricular, occipital or supraclavicular lymphadenopathy. CHEST: Normal chest expansion. No Telemetry. LUNGS: Absence of any rales, rhonchi or any wheezing. CARDIOVASCULAR: Regular. S1 and S2 normal. No appreciable rubs, murmurs or gallops. ABDOMEN: Soft, nontender, and nondistended. There is no rebound, voluntary guarding, or rigidity. : Deferred. No [place]. EXTREMITIES: Non-edematous and not cyanotic. No clubbing. Good capillary refill. SKIN: No skin breakdown. Vital Signs (last 8hr) Date Time Temp Pulse Resp B/P (MAP) Pulse Ox O2 Delivery O2 Flow Rate FiO2 10/29/24 11:47 98.1 95 19 118/84 98 10/29/24 08:08 99 Room Air* 0 21 10/29/24 07:56 98.2 98 16 116/81 99 LABS: Laboratory: Test 10/29/24 08:41 10/29/24 03:45 10/28/24 03:45 10/27/24 15:24 Range/Units White Blood Count 5.0 4.8-10.8 K/uL Red Blood Count 3.43 L 4.50-6.20 MIL/uL Hemoglobin 8.3 L 14.0-18.0 g/dL Hematocrit 27.9 L 42-54 % Mean Corpuscular Volume 81.3 79-99 fL Mean Corpuscular Hemoglobin 24.2 L 27.0-33.0 pg Mean Corpuscular Hemoglobin Concent 29.7 L 32.0-36.0 g/dL Red Cell Distribution Width 20.9 H 11.0-15.5 % Platelet Count 394 130-400 K/uL Mean Platelet Volume 10.2 7.5-10.5 fL Nucleated Red Blood Cells 0.4 H 0.0-0.19 % Sodium Level 137 136-145 mmol/L Potassium Level 3.4 L 3.5-5.1 mmol/L Chloride Level 102 101-111 mmol/L Carbon Dioxide Level 22 21-32 mmol/L Blood Urea Nitrogen 7 7-18 mg/dL Creatinine 1.0 0.5-1.3 mg/dL Glomerular Filtration Rate Calc 93 >90 mL/min Random Glucose 92 70-105 mg/dL Total Calcium 7.8 L 8.5-10.1 mg/dL Magnesium Level 2.00 1.80-2.40 mg/dL Total Bilirubin 0.4 # 0.2-1.0 mg/dL Aspartate Amino Transf (AST/SGOT) 153 H 10-37 U/L Alanine Aminotransferase (ALT/SGPT) 98 #H 12-78 U/L Alkaline Phosphatase 85 50-136 U/L Total Protein 6.8 6.0-8.3 g/dL Albumin 3.2 L 3.5-5.0 g/dL Lactic Acid Level 1.6 0.8-2.5 mmol/L Triglycerides Level 514 H 30-200 mg/dL Amylase Level 51 # 25-115 U/L Lipase 76 16-77 U/L Whole Blood Ketones Quantitative 0.3 0.0-0.6 mmol/L Current Medications Medications (Trade) Dose Ordered Sig/Aleida Route PRN Reason Start Time Stop Time Status Last Admin Dose Admin Acetaminophen (TYLenol 325MG TAB) 650 mg Q6H PRN PO TEMPERATURE GREATER THAN 101.5 10/27/24 14:30 11/26/24 14:29 Chlordiazepoxide HCl (LIBrium 25 MG CAP) 50 mg Q1H PRN PO ALCOHOL WITHDRAWAL PROTOCOL 10/27/24 15:00 10/28/24 09:53 DC Dexmedetomidine/ Sodium Chloride (PRECEdex 200MCG/ 50ML-NS) 200 mcg PROTOCOL IV 10/27/24 15:00 10/27/24 18:30 DC 10/27/24 15:31 200 MCG Dexmedetomidine/ Sodium Chloride (PRECEdex 400MCG/ 100ML-NS) 400 mcg PROTOCOL IV 10/27/24 18:30 11/26/24 18:29 10/27/24 18:45 400 MCG Dextrose (D50w) 50 ml AD PRN IV HYPOGLYCEMIA PROTOCOL 10/27/24 15:00 10/27/24 14:50 DC Dextrose (D50w) 50 ml AD PRN IV HYPOGLYCEMIA PROTOCOL 10/27/24 15:00 11/26/24 14:59 Diazepam (VALium 5 MG/ML 2 ML SYG) 10 mg HS IVP 10/31/24 21:00 11/01/24 21:01 Diazepam (VALium 5 MG/ML 2 ML SYG) 10 mg Q6H PRN IV ANXIETY 10/27/24 15:30 11/03/24 15:29 10/27/24 15:16 10 MG Diazepam (VALium 5 mg TAB) 10 mg Q12H PO 10/30/24 10:30 10/31/24 10:29 Diazepam (VALium 5 mg TAB) 10 mg Q6H PO 10/28/24 10:30 10/29/24 06:42 DC 10/29/24 04:51 10 MG Diazepam (VALium 5 mg TAB) 10 mg Q8H PO 10/29/24 10:30 10/30/24 10:29 10/29/24 11:13 10 MG Famotidine (Pepcid 20mg Tab) 20 mg BID PO 10/27/24 21:00 10/27/24 14:36 DC Glucagon (Glucagon 1mg Kit) 1 mg AD PRN IM HYPOGLYCEMIA PROTOCOL 10/27/24 15:00 10/27/24 14:50 DC Glucagon (Glucagon 1mg Kit) 1 mg AD PRN IM HYPOGLYCEMIA PROTOCOL 10/27/24 15:00 11/26/24 14:59 Hydralazine HCl (APRESOLine 20MG INJ) 5 mg Q6H PRN IV For:SBP above 160;DBP above 90 10/27/24 14:30 11/26/24 14:29 Hydromorphone HCl (DiLAUDid 0.5MG INJ) 0.5 mg Q4H PRN IV SEVERE PAIN (7-10) 10/27/24 14:30 11/01/24 14:29 Lorazepam (AtiVAN) 4 mg Q2H PRN IVP ALCOHOL WITHDRAWAL PROTOCOL 10/27/24 15:00 11/03/24 14:59 Magnesium Sulfate 50 ml @ 0 mls/hr PROTOCOL IV 10/28/24 08:30 10/28/24 08:38 DC Magnesium Sulfate 50 ml @ 0 mls/hr PROTOCOL PRN IV hypomagnesemia 10/27/24 15:00 11/26/24 14:59 10/28/24 06:49 25 MLS/HR Ondansetron HCl (zoFRAN 4MG INJ) 4 mg Q6H PRN IV NAUSEA/VOMITING 10/27/24 14:30 11/26/24 14:29 Pantoprazole Sodium (PROTonix 40MG INJ) 40 mg BID IVP 10/27/24 15:00 11/26/24 14:59 10/29/24 08:57 40 MG Pharmacy Profile Note (Pharmacy Communication) 1 each ONCE MISC 10/27/24 11:30 10/27/24 11:33 DC Pharmacy Profile Note (Pharmacy Communication) 1 each ONCE MISC 10/28/24 10:00 10/28/24 10:21 DC Pharmacy Profile Note (Pharmacy Communication) 1 each PROTOCOL PRN MISC ETOH Withdrawal Score changes 10/27/24 15:00 11/03/24 14:59 Piperacillin Sod/ Tazobactam Sod (Zosyn 3.375gm+NS 50ml) 3.375 gm Q8H IV 10/28/24 00:00 10/28/24 06:48 DC 10/28/24 06:47 3.375 GM Piperacillin Sod/ Tazobactam Sod (Zosyn 3.375gm+NS 50ml) 3.375 gm Q8H IV 10/28/24 15:00 11/07/24 14:59 10/29/24 06:19 3.375 GM Potassium Chloride 100 ml @ 100 mls/hr AD PRN IV POTASSIUM PROTOCOL 10/27/24 15:00 11/26/24 14:59 Potassium Chloride (K-Dur/Klor-Con 20meq) 20 meq AD PRN PO POTASSIUM PROTOCOL 10/27/24 15:00 11/26/24 14:59 10/29/24 05:40 20 MEQ Potassium Chloride (KCl 10% Elixir 20meq/15ml) 20 meq AD PRN PO POTASSIUM PROTOCOL 10/27/24 15:00 11/26/24 14:59 Thiamine HCl 100 mg/Folic Acid 1 mg/Multivitamins/ Minerals 10 ml/ Sodium Chloride 1,011.2 ml @ 100 mls/ hr Q24H IV 10/27/24 15:00 10/30/24 01:07 10/28/24 14:11 100 MLS/HR DIAGNOSTICS / RADIOLOGY: [ ] ASSESSMENT: Severe acute alcohol withdrawal, POA History of alcohol abuse, POA Anemia, can not exclude acute GI bleed, POA Mild acute pancreatitis, POA Drug screen positive for benzodiazepine Possible acute metabolic acidosis, POA Hyperglycemia, POA Moderate size hiatal hernia, POA Enlarged fatty liver, POA Hepatomegaly, POA Iron deficiency anemia, POA can not exclude acute GI bleed PLAN: Patient downgraded to the medical floor, off Precedex, still feels mildly anxious, continue supportive care with IV fluids. Continue the patient on Venofer IV, follow CBC in a.m., transfuse as needed. Anticipate discharge home in the next 24 hours if medically stable. NEURO: Minimize central acting medications as possible. Fall Precautions. Well lighted room through the day and minimize interruptions through the night to prevent acute delirium. PULMONARY: Supplemental 02 as needed BiPAP as necessary, for respiratory distress Titrate Fio2 to keep Spo2 > or = 90% DuoNebs and CPT as needed IS hourly while awake for pulmonary hygiene prn Out of bed to chair as tolerated Maintain aspiration precautions at all times CARDIOVASCULAR: Follow hemodynamics. Vital signs per facility protocol GI & NUTRITION: Continue nutritional support Aspirations precautions Prokinetic agents and laxatives as needed KIDNEYS & ELECTROLYTES: Strict monitoring of intake and output Daily weights Avoid nephrotoxic agents Monitor electrolytes and replace as needed Goal urine output of 30mL/hr or 0.5mL/kg/hr Medications to be dosed according to renal function. Avoid contrast if possible ENDOCRINE: Maintain blood glucose between 100-180 at all times. Insulin sliding scale for blood glucose management Hypoglycemia and hyperglycemia protocol in place INFECTIOUS DISEASE: Trend temperature, WBC and procalcitonin level Follow cultures, deescalate antibiotics as soon as possible. Panculture if new onset fever HEMATOLOGY & COAGULATION: Monitor H&H. Keep Hgb > 7 Transfuse 1 unit of PRBC for Hgb < 7 Transfuse 1 pack of platelets of platelets < 20, 000 Watch for any signs and symptoms of bleeding SKIN: Pressure ulcer prevention per facility protocol Specialty mattress as needed ORTHO/REHAB Continue PT/OT PRN: MEDICATIONS Tylenol 650 mg po every 4 hrs for fever zofran 4 mg IV every 6 hrs for n/v Hydralazine 5 mg IV every 4 hrs systolic pressure > 160 bowel regiment: lactulose 20 gm PO BID PRN constipation Supportive measures: Continue GI and DVT prophylaxis Disposition: Admit patient to the ICU, pending improvement in clinical condition. All questions answered time spent: > 35 min DAVIS WINTERS MD Oct 29, 2024 12:02
--- NOTE | 2024-10-29 15:01 | NUR ---
Pt I in room for gait and ALDs. Denies needs at this time. Dc home no DME or PT needs atthis time
[2024-10-30] VITALS (8 sets, daily range): BP systolic 103–145; BP diastolic 66–90; PULSE 72–92; RESP 16–18; TEMP 97.3–98.5; O2SAT 99
[2024-10-30 04:58] LABS: HEMATOCRIT 28.3 % (42-54); MEAN CORPUSCULAR VOLUME 82.7 fL (79-99); RED BLOOD CELL COUNT(AUTO) 3.42 MIL/uL (4.50-6.20); WHITE BLOOD COUNT (AUTO) 4.7 K/uL (4.8-10.8)
[2024-10-30 05:18] LABS: ALBUMIN 3.1 g/dL (3.5-5.0); BILIRUBIN,TOTAL 0.2 mg/dL (0.2-1.0); CREATININE 0.9 mg/dL (0.5-1.3); POTASSIUM 3.7 mmol/L (3.5-5.1); TOTAL PROTEIN, SERUM 6.7 g/dL (6.0-8.3)
[2024-10-30] MEDS: diazePAM 5 MG TAB PO SCH (10:50)
--- NOTE | 2024-10-30 13:39 | PN ---
[facility] PROGRESS NOTE Date of Service: Oct 30, 2024 Time of Service: 13:38 SUBJECTIVE: The patient is a very pleasant 49-year-old male, past medical history of alcohol abuse, as well as acute pancreatitis, presented to the emergency room at [facility] 10/27/2024 with the chief complaint of nausea and vomiting since yesterday. According to the patient, he drinks 6-7 alcoholic drinks to include shots of vodka on a daily basis. He quit drinking heavily for month ago, however started to drink again few days ago, earlier this morning he started feeling very anxious and shaky, reason for which he decided to present to the emergency room. Last alcohol drink was yesterday. In the emergency room, the patient looks extremely anxious, very tachycardic, he art rate in the range of 140. He has received total of 15 mg IV of diazepam. Currently lorazepam is in back ordered. No improvement noted. At the time of my visit the patient is alert oriented x3, extremely anxious, shivering, having palpitations, heart rate noted to be in the range of 135-140, with systolic blood pressure as high as 152/89. He is afebrile and saturating normal on room air. CBC done shows hemoglobin of 10.6, hematocrit 36.6 with a platelet count of 724. A carbon dioxide of 15. Lipase level of 80. Toxicology screen positive for benzodiazepine. Alcohol level of 80. 10/28 patient is seen and examined at bedside earlier this morning, no acute events overnight, the patient resting calm, hemodynamically stable, BP 114/80, heart rate controlled at 67, saturating normal on room air, alert oriented x3, no chest pain, shortness shortness for breath, no nausea, no vomiting, no abdominal pain. He is currently on Precedex. 10/29 patient is seen and examined at bedside, case discussed with the RN, downgraded from ICU to the medical floor, he is getting IV fluids, minimal tremor noted, still feels mildly anxious, not at his baseline, he is alert oriented x3, no chest pain, denies shortness a breath, no nausea, no vomiting, no abdominal pain, tolerating diet. 10/30 patient is seen and examined at bedside, case discussed with the RN, no acute events overnight, patient is still noted to have mild tremor, getting IV fluids, no chest pain, no nausea, no vomiting. REVIEW OF SYSTEMS CONSTITUTIONAL: Denies fevers, chills, or night sweats. No unintentional weight loss reported. NEUROLOGICAL: Denies headache, amaurosis fugax, motor weakness, sensory deficit, vertigo/spinning sensation, gait abnormalities, or tremors. ENT: No hearing loss, otalgia, otorrhea, rhinitis, rhinorrhea, hoarseness, or sore throat. CARDIOVASCULAR: Denies any exertional angina, dyspnea on exertion, orthopnea, paroxysmal nocturnal dyspnea, palpitations, life-threatening arrhythmias, claudication. PULMONARY: Denies any shortness of breath, cough, phlegm/sputum, hemoptysis, pleuritic chest pain. SLEEP: Denies morning headaches, daytime somnolence or napping. Denies difficulty falling asleep, staying asleep, waking from sleep. Denies knowledge of snoring. GASTROINTESTINAL: Denies any type of dysphagia to either liquids or solids. Denies nausea, vomiting, pyrosis, early satiety, abdominal pain, diarrhea, constipation, or changes in stool consistency or caliber. Denies coffee-ground emesis, hematemesis, hematochezia, or melanotic stools. GENITOURINARY: Denies frequency, urgency, nocturia, hematuria or incontinence (Storage/Irritative symptoms.) Low urinary stream, straining to void, urinary intermittency or hesitancy, splitting of the voiding stream, terminal dribbling. ENDOCRINOLOGIC: Denies polyuria, polydipsia, polyphagia or heat/cold intolerances. HEMATOLOGIC: Denies thrombophilia/previous clots, or coagulopathy/bleeding disorders. ONCOLOGIC: Denies personal history of malignancy. DERMATOLOGIC: Denies rashes or pruritus. PSYCHIATRIC: Denies any suicidal or homicidal ideation. Denies hallucinations. PHYSICAL EXAM GENERAL APPEARANCE: The patient is awake, alert, and oriented, in no acute cardiopulmonary distress. NEUROLOGICAL: Cranial nerves II-XII grossly intact. Motor is 5/5 in bilateral upper and lower extremities proximal to distal. No sensory deficits. HEENT: Face is symmetric. Pupils are equal and reactive. Extraocular movements are intact. NECK: Supple. No JVD. No thyromegaly. No submental, submandibular, pre- /postauricular, occipital or supraclavicular lymphadenopathy. CHEST: Normal chest expansion. No Telemetry. LUNGS: Absence of any rales, rhonchi or any wheezing. CARDIOVASCULAR: Regular. S1 and S2 normal. No appreciable rubs, murmurs or gallops. ABDOMEN: Soft, nontender, and nondistended. There is no rebound, voluntary guarding, or rigidity. : Deferred. No Valdez. EXTREMITIES: Non-edematous and not cyanotic. No clubbing. Good capillary refill. SKIN: No skin breakdown. Vital Signs (last 8hr) Date Time Temp Pulse Resp B/P (MAP) Pulse Ox O2 Delivery O2 Flow Rate FiO2 10/30/24 12:00 98.4 81 18 124/79 96 Room Air 10/30/24 08:00 98.2 84 18 138/86 99 Room Air LABS: Laboratory: Test 10/30/24 04:27 Range/Units White Blood Count 4.7 L 4.8-10.8 K/uL Red Blood Count 3.42 L 4.50-6.20 MIL/uL Hemoglobin 8.2 L 14.0-18.0 g/dL Hematocrit 28.3 L 42-54 % Mean Corpuscular Volume 82.7 79-99 fL Mean Corpuscular Hemoglobin 24.0 L 27.0-33.0 pg Mean Corpuscular Hemoglobin Concent 29.0 L 32.0-36.0 g/dL Red Cell Distribution Width 21.0 H 11.0-15.5 % Platelet Count 391 130-400 K/uL Mean Platelet Volume 10.4 7.5-10.5 fL Nucleated Red Blood Cells 0.0 0.0-0.19 % Sodium Level 138 136-145 mmol/L Potassium Level 3.7 3.5-5.1 mmol/L Chloride Level 104 101-111 mmol/L Carbon Dioxide Level 24 21-32 mmol/L Blood Urea Nitrogen 8 7-18 mg/dL Creatinine 0.9 0.5-1.3 mg/dL Glomerular Filtration Rate Calc 105 >90 mL/min Random Glucose 80 70-105 mg/dL Total Calcium 8.3 L 8.5-10.1 mg/dL Magnesium Level 2.00 1.80-2.40 mg/dL Total Bilirubin 0.2 0.2-1.0 mg/dL Aspartate Amino Transf (AST/SGOT) 115 H 10-37 U/L Alanine Aminotransferase (ALT/SGPT) 96 H 12-78 U/L Alkaline Phosphatase 71 50-136 U/L Total Protein 6.7 6.0-8.3 g/dL Albumin 3.1 L 3.5-5.0 g/dL Current Medications Medications (Trade) Dose Ordered Sig/Aleida Route PRN Reason Start Time Stop Time Status Last Admin Dose Admin Acetaminophen (TYLenol 325MG TAB) 650 mg Q6H PRN PO TEMPERATURE GREATER THAN 101.5 10/27/24 14:30 11/26/24 14:29 Chlordiazepoxide HCl (LIBrium 25 MG CAP) 50 mg Q1H PRN PO ALCOHOL WITHDRAWAL PROTOCOL 10/27/24 15:00 10/28/24 09:53 DC Dexmedetomidine/ Sodium Chloride (PRECEdex 200MCG/ 50ML-NS) 200 mcg PROTOCOL IV 10/27/24 15:00 10/27/24 18:30 DC 10/27/24 15:31 200 MCG Dexmedetomidine/ Sodium Chloride (PRECEdex 400MCG/ 100ML-NS) 400 mcg PROTOCOL IV 10/27/24 18:30 11/26/24 18:29 10/27/24 18:45 400 MCG Dextrose (D50w) 50 ml AD PRN IV HYPOGLYCEMIA PROTOCOL 10/27/24 15:00 10/27/24 14:50 DC Dextrose (D50w) 50 ml AD PRN IV HYPOGLYCEMIA PROTOCOL 10/27/24 15:00 11/26/24 14:59 Diazepam (VALium 5 MG/ML 2 ML SYG) 10 mg HS IVP 10/31/24 21:00 11/01/24 21:01 Diazepam (VALium 5 MG/ML 2 ML SYG) 10 mg Q6H PRN IV ANXIETY 10/27/24 15:30 11/03/24 15:29 10/27/24 15:16 10 MG Diazepam (VALium 5 mg TAB) 10 mg Q12H PO 10/30/24 10:30 10/31/24 10:29 10/30/24 10:50 10 MG Diazepam (VALium 5 mg TAB) 10 mg Q6H PO 10/28/24 10:30 10/29/24 06:42 DC 10/29/24 04:51 10 MG Diazepam (VALium 5 mg TAB) 10 mg Q8H PO 10/29/24 10:30 10/30/24 10:29 DC 10/30/24 02:35 10 MG Famotidine (Pepcid 20mg Tab) 20 mg BID PO 10/27/24 21:00 10/27/24 14:36 DC Glucagon (Glucagon 1mg Kit) 1 mg AD PRN IM HYPOGLYCEMIA PROTOCOL 10/27/24 15:00 10/27/24 14:50 DC Glucagon (Glucagon 1mg Kit) 1 mg AD PRN IM HYPOGLYCEMIA PROTOCOL 10/27/24 15:00 11/26/24 14:59 Hydralazine HCl (APRESOLine 20MG INJ) 5 mg Q6H PRN IV For:SBP above 160;DBP above 90 10/27/24 14:30 11/26/24 14:29 Hydromorphone HCl (DiLAUDid 0.5MG INJ) 0.5 mg Q4H PRN IV SEVERE PAIN (7-10) 10/27/24 14:30 11/01/24 14:29 Lorazepam (AtiVAN) 4 mg Q2H PRN IVP ALCOHOL WITHDRAWAL PROTOCOL 10/27/24 15:00 11/03/24 14:59 Magnesium Sulfate 50 ml @ 0 mls/hr PROTOCOL IV 10/28/24 08:30 10/28/24 08:38 DC Magnesium Sulfate 50 ml @ 0 mls/hr PROTOCOL PRN IV hypomagnesemia 10/27/24 15:00 11/26/24 14:59 10/28/24 06:49 25 MLS/HR Ondansetron HCl (zoFRAN 4MG INJ) 4 mg Q6H PRN IV NAUSEA/VOMITING 10/27/24 14:30 11/26/24 14:29 Pantoprazole Sodium (PROTonix 40MG INJ) 40 mg BID IVP 10/27/24 15:00 11/26/24 14:59 10/30/24 10:50 40 MG Pharmacy Profile Note (Pharmacy Communication) 1 each ONCE MISC 10/27/24 11:30 10/27/24 11:33 DC Pharmacy Profile Note (Pharmacy Communication) 1 each ONCE MISC 10/28/24 10:00 10/28/24 10:21 DC Pharmacy Profile Note (Pharmacy Communication) 1 each PROTOCOL PRN MISC ETOH Withdrawal Score changes 10/27/24 15:00 11/03/24 14:59 Piperacillin Sod/ Tazobactam Sod (Zosyn 3.375gm+NS 50ml) 3.375 gm Q8H IV 10/28/24 00:00 10/28/24 06:48 DC 10/28/24 06:47 3.375 GM Piperacillin Sod/ Tazobactam Sod (Zosyn 3.375gm+NS 50ml) 3.375 gm Q8H IV 10/28/24 15:00 11/07/24 14:59 10/30/24 06:09 3.375 GM Potassium Chloride 100 ml @ 100 mls/hr AD PRN IV POTASSIUM PROTOCOL 10/27/24 15:00 11/26/24 14:59 Potassium Chloride (K-Dur/Klor-Con 20meq) 20 meq AD PRN PO POTASSIUM PROTOCOL 10/27/24 15:00 11/26/24 14:59 10/29/24 05:40 20 MEQ Potassium Chloride (KCl 10% Elixir 20meq/15ml) 20 meq AD PRN PO POTASSIUM PROTOCOL 10/27/24 15:00 11/26/24 14:59 Thiamine HCl 100 mg/Folic Acid 1 mg/Multivitamins/ Minerals 10 ml/ Sodium Chloride 1,011.2 ml @ 100 mls/ hr Q24H IV 10/27/24 15:00 10/30/24 01:07 DC 10/29/24 17:03 100 MLS/HR DIAGNOSTICS / RADIOLOGY: [ ] ASSESSMENT: Severe acute alcohol withdrawal, POA History of alcohol abuse, POA Anemia, can not exclude acute GI bleed, POA Mild acute pancreatitis, POA Drug screen positive for benzodiazepine Possible acute metabolic acidosis, POA Hyperglycemia, POA Moderate size hiatal hernia, POA Enlarged fatty liver, POA Hepatomegaly, POA Iron deficiency anemia, POA can not exclude acute GI bleed PLAN: Admitted to the medical floor, the patient is still noted with mild tremor, alert oriented x3, we will continue supportive care with IV fluids Continue the patient on Venofer IV, follow CBC in a.m., transfuse as needed. Anticipate discharge home in the next 24 hours if medically stable. NEURO: Minimize central acting medications as possible. Fall Precautions. Well lighted room through the day and minimize interruptions through the night to prevent acute delirium. PULMONARY: Supplemental 02 as needed BiPAP as necessary, for respiratory distress Titrate Fio2 to keep Spo2 > or = 90% DuoNebs and CPT as needed IS hourly while awake for pulmonary hygiene prn Out of bed to chair as tolerated Maintain aspiration precautions at all times CARDIOVASCULAR: Follow hemodynamics. Vital signs per facility protocol GI & NUTRITION: Continue nutritional support Aspirations precautions Prokinetic agents and laxatives as needed KIDNEYS & ELECTROLYTES: Strict monitoring of intake and output Daily weights Avoid nephrotoxic agents Monitor electrolytes and replace as needed Goal urine output of 30mL/hr or 0.5mL/kg/hr Medications to be dosed according to renal function. Avoid contrast if possible ENDOCRINE: Maintain blood glucose between 100-180 at all times. Insulin sliding scale for blood glucose management Hypoglycemia and hyperglycemia protocol in place INFECTIOUS DISEASE: Trend temperature, WBC and procalcitonin level Follow cultures, deescalate antibiotics as soon as possible. Panculture if new onset fever HEMATOLOGY & COAGULATION: Monitor H&H. Keep Hgb > 7 Transfuse 1 unit of PRBC for Hgb < 7 Transfuse 1 pack of platelets of platelets < 20, 000 Watch for any signs and symptoms of bleeding SKIN: Pressure ulcer prevention per facility protocol Specialty mattress as needed ORTHO/REHAB Continue PT/OT PRN: MEDICATIONS Tylenol 650 mg po every 4 hrs for fever zofran 4 mg IV every 6 hrs for n/v Hydralazine 5 mg IV every 4 hrs systolic pressure > 160 bowel regiment: lactulose 20 gm PO BID PRN constipation Supportive measures: Continue GI and DVT prophylaxis Disposition: Admit patient to the ICU, pending improvement in clinical condition. All questions answered time spent: > 35 min DAVIS WINTERS MD Oct 30, 2024 13:39
[2024-10-31 03:22] VITALS: BP 144/88; PULSE 79; RESP 17; TEMP 97.9
[2024-10-31 06:46] LABS: HEMATOCRIT 29.5 % (42-54); MEAN CORPUSCULAR HGB CONC 29.5 g/dL (32.0-36.0); MEAN CORPUSCULAR VOLUME 81.3 fL (79-99); RED BLOOD CELL COUNT(AUTO) 3.63 MIL/uL (4.50-6.20); RED CELL DISTRIBUTION WIDTH 21.8 % (11.0-15.5); WHITE BLOOD COUNT (AUTO) 6.4 K/uL (4.8-10.8)
[2024-10-31 07:02] LABS: ALBUMIN 3.3 g/dL (3.5-5.0); BILIRUBIN,TOTAL 0.3 mg/dL (0.2-1.0); CREATININE 0.9 mg/dL (0.5-1.3); MAGNESIUM 1.9 mg/dL (1.80-2.40); POTASSIUM 3.7 mmol/L (3.5-5.1); TOTAL PROTEIN, SERUM 7.3 g/dL (6.0-8.3)
[2024-10-31 08:00] VITALS: BP 122/92; PULSE 94; RESP 18; TEMP 97.8
[2024-10-31 12:00] VITALS: BP 118/78; PULSE 78; RESP 18; TEMP 97.8
[2024-10-31] MEDS ORDERED: THIA100C PO (12:36)
[2024-10-31] MEDS ORDERED: FOLI0.8C PO (12:36)
--- NOTE | 2024-10-31 12:37 | DS ---
Discharge Summary Hospital Course Summary: he patient is a very pleasant 49-year-old male, past medical history of alcohol abuse, as well as acute pancreatitis, presented to the emergency room at [facility] 10/27/2024 with the chief complaint of nausea and vomiting since yesterday. According to the patient, he drinks 6-7 alcoholic drinks to include shots of vodka on a daily basis. He quit drinking heavily for month ago, however started to drink again few days ago, earlier this morning he started feeling very anxious and shaky, reason for which he decided to present to the emergency room. Last alcohol drink was yesterday. In the emergency room, the patient looks extremely anxious, very tachycardic, heart rate in the range of 140. He has received total of 15 mg IV of diazepam. Currently lorazepam is in back ordered. No improvement noted. At the time of my visit the patient is alert oriented x3, extremely anxious, shivering, having palpitations, heart rate noted to be in the range of 135-140, with systolic blood pressure as high as 152/89. He is afebrile and saturating normal on room air. CBC done shows hemoglobin of 10.6, hematocrit 36.6 with a platelet count of 724. A carbon dioxide of 15. Lipase level of 80. Toxicology screen positive for benzodiazepine. Alcohol level of 80. 10/28 patient is seen and examined at bedside earlier this morning, no acute events overnight, the patient resting calm, hemodynamically stable, BP 114/80, heart rate controlled at 67, saturating normal on room air, alert oriented x3, no chest pain, shortness shortness for breath, no nausea, no vomiting, no abdominal pain. He is currently on Precedex. 10/29 patient is seen and examined at bedside, case discussed with the RN, raysagr shara from ICU to the medical floor, he is getting IV fluids, minimal tremor noted, still feels mildly anxious, not at his baseline, he is alert oriented x3, no chest pain, denies shortness a breath, no nausea, no vomiting, no abdominal pain, tolerating diet. 10/30 patient is seen and examined at bedside, case discussed with the RN, no acute events overnight, patient is still noted to have mild tremor, getting IV fluids, no chest pain, no nausea, no vomiting. Patient is successfully weaned off Precedex, downgraded to the medical floor. Today the patient alert oriented x3, no signs of alcohol withdrawal, would like to be discharged home, denies dizziness, no headache, no chest pain, denies shortness for breath, no nausea, no vomiting, no abdominal pain, tolerating diet well, no diarrhea, no constipation, no melena, no hematochezia, no hematemesis, no hematuria, no dysuria. Assessment/Plan: Final diagnosis Severe acute alcohol withdrawal, POA History of alcohol abuse, POA Anemia, can not exclude acute GI bleed, POA Mild acute pancreatitis, POA Drug screen positive for benzodiazepine Possible acute metabolic acidosis, POA Hyperglycemia, POA Moderate size hiatal hernia, POA Enlarged fatty liver, POA Hepatomegaly, POA Iron deficiency anemia, POA can not exclude acute GI bleed Discharge Instructions: Patient to follow with her PCP as an outpatient and to return to the hospital if condition changes. Counseling provided in terms of alcohol abuse cessation. Patient alert oriented x3, agreed and understood the information provided. Home Medications: Active Scripts Ondansetron HCl (Ondansetron HCl) 4 Mg Tablet, 4 MG PO Q6HPRN PRN for NAUSEA/VOMITING, #20 TAB 0 Refills Prov:LANEY WEBSTER 12/09/22 Reported Medications Escitalopram Oxalate (Lexapro) 20 Mg Tablet, 1 TAB PO DAILY for 30 Days, #30 TAB 0 Refills 10/27/24 Trazodone HCl (Trazodone HCl) 150 Mg Tablet, 150 MG PO HS, TAB 08/03/24 Discontinued Scripts Pantoprazole Sodium (Protonix) 40 Mg Tablet.dr, 40 MG PO DAILY, #30 TAB 0 Refills Prov:LANEY WEBSTER 02/06/23 Triamcinolone Acetonide (Kenalog/Aristocort) 3 Appl/Tube Cream.gm., 0 APPL TP BID, #1 TUB 0 Refills Apply to affected site twice a day Prov:LANEY WEBSTER 12/09/22 Time spent arranging discharge: 31-60 minutes DAVIS WINTERS MD Oct 31, 2024 12:37
[2024-10-31] MEDS ORDERED: diazePAM 5 MG/ML 2 ML SYG IVP SCH (21:00)
== END 2024-10-31 16:25 | disposition home or self-care (01) | DRG 439 ==
LOC: EDH 10:08 → EDHIP 10:09 → UNDOADMIN 14:27 → EDHIP 14:27 → 2BH 18:04 → 3DH 10-28 15:15
PROVIDERS: ADMIT Internal Medicine; ATTEND Internal Medicine
DX: K85.90 Acute pancreatitis without necrosis or infection, unspecified (principal); E87.21 Acute metabolic acidosis; R65.10 Systemic inflammatory response syndrome (SIRS) of non-infectious origin without acute organ dysfunction; F10.231 Alcohol dependence with withdrawal delirium; E11.65 Type 2 diabetes mellitus with hyperglycemia; K76.0 Fatty (change of) liver, not elsewhere classified; K44.9 Diaphragmatic hernia without obstruction or gangrene; E86.0 Dehydration; D50.9 Iron deficiency anemia, unspecified; D75.839 Thrombocytosis, unspecified; Y90.4 Blood alcohol level of 80-99 mg/100 ml
CPT/HCPCS: 36415; 71045; 74176; 76700; 80048; 80053; 80061; 80305; 81001; 82010; 82150; 83036; 83540; 83550; 83605; 83690; 83735; 84478; 84484; 85025; 85027; 93005; 96374; 96375; 96376; 99285; G0378; J2405; J2470; J2543; J3360; J3411; J3475; J3480; J3490; J7030